=== PATIENT | male | born 1960 | race Hispanic/Latino ===

== ENCOUNTER 2017-02-20 15:48 | Inpatient (IN) | payer MEDICARE ==
[2017-02-20 16:23] LABS: Basophils % (Auto) 0.8 % (0.0-1.8); Eosinophils % (Auto) 2.9 % (0.0-4.3); Hematocrit 45.1 % (35.5-45.6); Hemoglobin 14.6 gm/dl (11.8-15.2); Mean Corpuscular HGB Conc 32 % (32-34); Mean Corpuscular Hemoglobin 28 pg (28-32); Mean Corpuscular Volume 85 fl (84-94); Platelet Count 350 K/mm3 (140-440); Red Blood Count 5.31 M/mm3 (3.65-5.03); Red Cell Distribution Width 15.6 % (13.2-15.2); White Blood Count 13.4 K/mm3 (4.5-11.0)
[2017-02-20 18:05] LABS: Anion Gap 19 mmol/L; BUN/Creatinine Ratio 13.63; Blood Urea Nitrogen 15 mg/dL (9-20); Calcium 9.4 mg/dL (8.4-10.2); Carbon Dioxide 22 mmol/L (22-30); Chloride 100.9 mmol/L (98-107); Glucose 104 mg/dL (75-100); Potassium 4.6 mmol/L (3.6-5.0); Sodium 137 mmol/L (137-145)
[2017-02-20] MEDS ORDERED: MORPHINE IV ONE (23:30)
[2017-02-20] MEDS ORDERED: ZOFRAN IV ONE (23:30)
[2017-02-20] MEDS ORDERED: NITRO-BID 2% TP ONE (23:30)
--- NOTE | 2017-02-20 23:35 | Emergency Department Report ---
HPI - General Chief Complaint: Chest Pain Time Seen by Provider: 02/20/17 22:56 - HPI HPI: Room 4 The patient is a 56-year-old male presenting with chief complaint of chest pain. The patient states she was admitted to the hospital for chest pain 3 days earlier and left AMA because nursing would not give him an aspirin. The hospitalist note states that the patient was discharged prematurely before cardiology could evaluate him and that they were attempting to get him to return to the hospital. The patient states since she's left continues to have substernal chest pain as well as low back pain shortness of breath nausea and vomiting Location: Chest Duration: [see above] Quality: Pain Severity: Moderate Modifying factors: [see above] Context: [see above] Mode of transportation: [not driving] ED Past Medical Hx - Past Medical History Hx Hypertension: Yes (2001. controlled with meds) Hx Heart Attack/AMI: Yes (2009. cardiac clearance on chart.) Hx GERD: Yes Hx Arthritis: Yes Hx Kidney Stones: Yes Hx Psychiatric Treatment: Yes (meth abuse) Hx Asthma: Yes (no inhaler use. no recent attacks) - Surgical History Past Surgical History?: Yes Hx Coronary Stent: Yes (1) Hx Open Heart Surgery: Yes (2001- vessel) Additional Surgical History: back surgery - Family History Family history: no significant - Social History Smoking Status: Current Every Day Smoker (occasional) Substance Use Type: None, Methamphetamines - Medications Home Medications: Home Medications Medication Instructions Recorded Confirmed Last Taken Type Carvedilol 6.25 mg PO DAILY 07/12/14 02/20/17 02/17/17 History 6.25 Gabapentin [Neurontin] 2 cap PO BID 02/17/17 02/20/17 02/17/17 History Lisinopril [Zestril TAB] 10 mg PO QDAY 02/17/17 02/20/17 02/17/17 History 10MG ED Review of Systems ROS: Stated complaint: CHEST PAIN Other details as noted in HPI Comment: All other systems reviewed and negative Constitutional: denies: chills, fever Eyes: denies: eye pain, eye discharge, vision change ENT: denies: ear pain, throat pain Respiratory: shortness of breath Cardiovascular: chest pain Endocrine: no symptoms reported Gastrointestinal: nausea, vomiting Genitourinary: denies: urgency, dysuria Musculoskeletal: denies: back pain, joint swelling, arthralgia Skin: denies: rash, lesions Neurological: denies: headache, weakness, paresthesias Psychiatric: denies: anxiety, depression Hematological/Lymphatic: denies: easy bleeding, easy bruising Physical Exam - Physical Exam Vital Signs: Vital Signs 02/20/17 02/20/17 15:58 21:17 Temperature 98.6 F 97.6 F Pulse Rate 93 H 102 H Respiratory 18 18 Rate Blood Pressure 111/83 149/87 O2 Sat by Pulse 99 98 Oximetry Physical Exam: GENERAL: The patient is well-developed well-nourished male lying on stretcher not appearing to be in acute distress. [] HEENT: Normocephalic. Atraumatic. Extraocular motions are intact. Patient has moist mucous membranes. NECK: Supple. Trachea midline CHEST/LUNGS: Clear to auscultation. There is no respiratory distress noted. HEART/CARDIOVASCULAR: Regular. There is no tachycardia. There is no gallop rub or murmur. ABDOMEN: Abdomen is soft, nontender. Patient has normal bowel sounds. There is no abdominal distention. SKIN: There is no rash. There is no edema. There is no diaphoresis. NEURO: The patient is awake, alert, and oriented. The patient is cooperative. The patient has normal speech MUSCULOSKELETAL: There is no evidence of acute injury. ED Course Vital Signs 02/20/17 02/20/17 15:58 21:17 Temperature 98.6 F 97.6 F Pulse Rate 93 H 102 H Respiratory 18 18 Rate Blood Pressure 111/83 149/87 O2 Sat by Pulse 99 98 Oximetry ED Medical Decision Making - Lab Data Result diagrams: 02/20/17 16:05 02/20/17 16:05 Laboratory Tests 02/20/17 02/20/17 02/20/17 16:05 16:05 19:00 WBC 13.4 H RBC 5.31 H Hgb 14.6 Hct 45.1 MCV 85 MCH 28 MCHC 32 RDW 15.6 H Plt Count 350 Lymph % (Auto) 19.3 [place] % (Auto) 8.3 H Eos % (Auto) 2.9 Baso % (Auto) 0.8 Lymph # 2.6 [place] # 1.1 H Eos # 0.4 Baso # 0.1 Seg Neutrophils % 68.7 Seg Neutrophils # 9.2 H Sodium 137 Potassium 4.6 Chloride 100.9 Carbon Dioxide 22 Anion Gap 19 BUN 15 Creatinine 1.1 Estimated GFR > 60 BUN/Creatinine Ratio 13.63 Glucose 104 H Calcium 9.4 Troponin T < 0.010 < 0.010 02/20/17 22:43 WBC RBC Hgb Hct MCV MCH MCHC RDW Plt Count Lymph % (Auto) [place] % (Auto) Eos % (Auto) Baso % (Auto) Lymph # [place] # Eos # Baso # Seg Neutrophils % Seg Neutrophils # Sodium Potassium Chloride Carbon Dioxide Anion Gap BUN Creatinine Estimated GFR BUN/Creatinine Ratio Glucose Calcium Troponin T < 0.010 - EKG Data -: EKG Interpreted by Me EKG shows normal: sinus rhythm Rate: normal - EKG Data When compared to previous EKG there are: no significant change Interpretation: unchanged when compared t (02/18/2017) 02/20/17 23:35 RBBB - Radiology Data Radiology results: image reviewed (chest x-ray) interpreted by me: Chest x-ray-no focal infiltrates, no pneumothorax - Differential Diagnosis ACS, SSS, Meth abuse Critical care attestation.: If time is entered above; I have spent that time in minutes in the direct care of this critically ill patient, excluding procedure time. ED Disposition Clinical Impression: Chest pain, Methamphetamine abuse Disposition: OP ADMITTED IP TO THIS HOSP Is pt being admited?: Yes Does the pt Need Aspirin: Yes Condition: Stable Instructions: Chest Pain (ED) Referrals: PRIMARY CARE, [Primary Care Provider] - 3-5 Days Time of Disposition: 23:36 (hospitalist paged)
[2017-02-20] MEDS ORDERED: ASPIRIN PO ONE (23:38)
[2017-02-21 01:13] LABS: Urine Drugs of Abuse Note Disclamer
[2017-02-21] MEDS ORDERED: MILK OF MAGNESIA PO PRN (01:38)
[2017-02-21] MEDS ORDERED: DULCOLAX PR PRN (01:38)
[2017-02-21] MEDS ORDERED: PROVENTIL IH PRN (01:38)
[2017-02-21] MEDS ORDERED: TYLENOL PO PRN (01:38)
[2017-02-21] MEDS ORDERED: ZOFRAN IV PRN (01:38)
--- NOTE | 2017-02-21 01:42 | History and Physical Report ---
History of Present Illness Date of examination: 02/21/17 History of present illness: This is a 56-year-old man history of hypertension, coronary artery disease, methamphetamine abuse signed out AGAINST MEDICAL ADVICE yesterday from the hospital. He was admitted for chest pain, he had a stress test which was negative. He was noted to have a 6 second pause on telemetry, he returned to the emergency room because he continues to have chest pain. Pain is in the epigastric area which she describes as a sharp pain, intermittent in nature lasting for 1 minute, intensity 3/10, no radiation, cannot identify exacerbating or relieving factors. No nausea vomiting, shortness breath, diaphoresis or palpitation Patient denies cough, abdominal pain, hematochezia, dysuria, frequency, focal weakness, dysarthria, fever chills, polydipsia polyuria, hot or cold intolerance , easy bruisability, or rash or bleeding from mucosal membrane, rhinorrhea, epistaxis, earache, tinnitus, blurry vision, eye discharge, anxiety, depression. Other review of systems negative PAST SURGICAL HISTORY: Back surgery, CABG SOCIAL HISTORY: Smoke 2 cigarettes a day, amphetamine use, no alcohol FAMILY HISTORY: Hypertension Medications and Allergies Allergies Allergy/AdvReac Type Severity Reaction Status Date / Time oxytetracycline Allergy HIVES,RASH Verified 07/13/14 11:57 [From Terramycin] oxytetracycline HCl Allergy HIVES,RASH Verified 07/13/14 11:57 [From Terramycin] Home Medications Medication Instructions Recorded Confirmed Last Taken Type Carvedilol 6.25 mg PO DAILY 07/12/14 02/20/17 02/17/17 History 6.25 Gabapentin [Neurontin] 2 cap PO BID 02/17/17 02/20/17 02/17/17 History Lisinopril [Zestril TAB] 10 mg PO QDAY 02/17/17 02/20/17 02/17/17 History 10MG Exam - Physical Exam Narrative exam: P\Gen. appearance: Patient lying in bed, no apparent distress HEENT: Normocephalic, atraumatic, pupils equally round and reactive to light, extraocular movement intact, and no sclericterus,. No JVD or thyromegaly or nodule,neck supple, no carotid bruit ,mucous membranes moist, no exudate or erythema Heart: S1, S2, regular rate and rhythm Lungs: Clear to auscultation bilaterally, breathing comfortable Abdomen: Positive bowel sounds, nontender, nondistended, no organomegaly Extremity: No edema, cyanosis, clubbing Skin: No rash, nodules, warm, dry Neuro: Oriented 3, cranial nerves II-12 intact, speech is fluent, motor and sensory intact - Constitutional Vitals: Temp Pulse Resp BP Pulse Ox 97.6 F 90 16 125/82 93 02/20/17 21:17 02/21/17 01:04 02/21/17 01:04 02/21/17 01:04 02/21/17 01:04 Results - Labs CBC & Chem 7: 02/20/17 16:05 02/20/17 16:05 Labs: Abnormal lab results 02/20/17 02/20/17 Range/Units 16:05 16:05 WBC 13.4 H (4.5-11.0) K/mm3 RBC 5.31 H (3.65-5.03) M/mm3 RDW 15.6 H (13.2-15.2) % [place] % (Auto) 8.3 H (0.0-7.3) % [place] # 1.1 H (0.0-0.8) K/mm3 Seg Neutrophils # 9.2 H (1.8-7.7) K/mm3 Glucose 104 H (75-100) mg/dL - Imaging and Cardiology EKG: image reviewed Chest x-ray: image reviewed Assessment and Plan Unstable angina 6 second pause Coronary artery disease Hypertension Substance abuse Admits medicine Continue cardiac medication, consult cardiology Start DVT prophylaxis, hold beta mary
[2017-02-21] MEDS ORDERED: APRESOLINE IV PRN (02:51)
[2017-02-21] MEDS: PERCOCET 5/325 PO PRN ×2 (04:39→18:49)
--- NOTE | 2017-02-21 09:47 | XRay Report ---
AP CHEST: HISTORY: chest pain Previous CABG changes. AP view of the chest demonstrates a normal mediastinal and cardiac contour with clear lungs and normal bony and soft tissue structures. No significant change since 02/17/17. IMPRESSION: No acute cardiopulmonary process appreciated.
[2017-02-21] MEDS: NEURONTIN PO SCH ×2 (10:26→21:12)
[2017-02-21] MEDS: ZESTRIL PO SCH (10:26)
[2017-02-21] MEDS: LOVENOX SUB-Q SCH (10:27)
--- NOTE | 2017-02-21 12:40 | Progress Note ---
Assessment and Plan Assessment and plan: Patient is a 56 yo man with a history of HTN, [place], OA, Asthma, CAD S/P CABG, Methamphetamine Substance Abuse presented to ED from [facility] admission for chest pain, unstable angina. Stress test showed prior infarct but no acute ischemia. -Recurrent Chest pains related to CAD with drug abuse: cardiology to evaluate -No Uti or sepsis on admission, urine and blood cultures negative. Patient had SIRS, poa instead -Methamphetamine substance abuse -Hyperkalemia, resolved New issue: Cardiac pulse: Hold discharge and consulted cardiology Ordered 2d Echocardiogram and labs including magnesium Cardiology went to evaluate patient, however, he had been discharged prematurely and we are currently trying to get him to return. This morning, I reviewed his [employer]; I told the nurse and charge nurse to hold discharge due to 2.6 sec cardiac pause. He was allowed to leave the hospital without my consent. I spoke with charge nurse Edith and she was trying to get him back. He came back this morning. It appears patient signed out AMA because he did not get his aspirin History Interval history: Patient seen and examined. Follow up on . Overnight uneventful. No sob, n/v or severe headaches. Imaging, old records, testing, labs, nursing notes reviewed. Hospitalist Physical - Physical exam Narrative exam: GEN: WDWN, NAD, AWAKE, ALERT, ORIENTATED 3 CVS: RRR, NORMAL S1S2 LUNGS/CHEST: CTA B, NORMAL CHEST EXPANSION B, GOOD AIR ENTRY B ABD: SOFT NTND, GBS, NO REBOUND OR GUARDING EXT/SKIN: NO SIGNIFICANT EDEMA OR RASH MSK: FROM X 4 EXTREMITIES NEURO: CN 2-12 GROSSLY INTACT, NO new FOCAL DEFICITS PSY: Anxious, poor judgment, compulsive - Constitutional Vitals: Temp Pulse Resp BP Pulse Ox 97.2 F L 76 18 127/70 97 02/21/17 08:00 02/21/17 10:26 02/21/17 08:00 02/21/17 10:26 02/21/17 08:34 Results - Labs CBC & Chem 7: 02/20/17 16:05 02/20/17 16:05 Labs: Laboratory Last Values WBC 13.4 K/mm3 (4.5-11.0) H 02/20/17 16:05 RBC 5.31 M/mm3 (3.65-5.03) H 02/20/17 16:05 Hgb 14.6 gm/dl (11.8-15.2) 02/20/17 16:05 Hct 45.1 % (35.5-45.6) 02/20/17 16:05 MCV 85 fl (84-94) 02/20/17 16:05 MCH 28 pg (28-32) 02/20/17 16:05 MCHC 32 % (32-34) 02/20/17 16:05 RDW 15.6 % (13.2-15.2) H 02/20/17 16:05 Plt Count 350 K/mm3 (140-440) 02/20/17 16:05 Lymph % (Auto) 19.3 % (13.4-35.0) 02/20/17 16:05 [place] % (Auto) 8.3 % (0.0-7.3) H 02/20/17 16:05 Eos % (Auto) 2.9 % (0.0-4.3) 02/20/17 16:05 Baso % (Auto) 0.8 % (0.0-1.8) 02/20/17 16:05 Lymph # 2.6 K/mm3 (1.2-5.4) 02/20/17 16:05 [place] # 1.1 K/mm3 (0.0-0.8) H 02/20/17 16:05 Eos # 0.4 K/mm3 (0.0-0.4) 02/20/17 16:05 Baso # 0.1 K/mm3 (0.0-0.1) 02/20/17 16:05 Seg Neutrophils % 68.7 % (40.0-70.0) 02/20/17 16:05 Seg Neutrophils # 9.2 K/mm3 (1.8-7.7) H 02/20/17 16:05 Sodium 137 mmol/L (137-145) 02/20/17 16:05 Potassium 4.6 mmol/L (3.6-5.0) 02/20/17 16:05 Chloride 100.9 mmol/L (98-107) 02/20/17 16:05 Carbon Dioxide 22 mmol/L (22-30) 02/20/17 16:05 Anion Gap 19 mmol/L 02/20/17 16:05 BUN 15 mg/dL (9-20) 02/20/17 16:05 Creatinine 1.1 mg/dL (0.8-1.5) 02/20/17 16:05 Estimated GFR > 60 ml/min 02/20/17 16:05 BUN/Creatinine Ratio 13.63 % 02/20/17 16:05 Glucose 104 mg/dL (75-100) H 02/20/17 16:05 Calcium 9.4 mg/dL (8.4-10.2) 02/20/17 16:05 Troponin T < 0.010 ng/mL (0.00-0.029) 02/20/17 22:43 Urine Opiates Screen Presumptive positive 02/21/17 00:38 Urine Methadone Screen Presumptive negative 02/21/17 00:38 Ur Barbiturates Screen Presumptive negative 02/21/17 00:38 Ur Phencyclidine Scrn Presumptive negative 02/21/17 00:38 Ur Amphetamines Screen Presumptive negative 02/21/17 00:38 U Benzodiazepines Scrn Presumptive negative 02/21/17 00:38 Urine Cocaine Screen Presumptive negative 02/21/17 00:38 U Marijuana (THC) Screen Presumptive negative 02/21/17 00:38 Drugs of Abuse Note Disclamer 02/21/17 00:38
--- NOTE | 2017-02-21 13:32 | Consultation ---
History of Present Illness Consult date: 02/21/17 Consult reason: chest pain History of present illness: 56 YO man with h/o CAD s/p CABG, Htn, and chronic amphatemine abuse. He was hospitalized at [facility] for addiction and recently transferred to [facility] due to chest pain. He underwent MPI on 02/19/17 which revealed no signfiicant ischemia. Subsuquently he was noted to have asymptomatic nocturnal sinus pause. He left the hospital yesterday against medical advice but came back to the hospital last night due to recurrent mild chest pain. He currently feels well and has minimal ongoing chest discomfort. He has been on telemetry since re-admission and no signfiicant tachy or dai arrhythmias have been noted. There is no telemetry strip currently available documenting his sinus pause prior to leaving AMA yesterday. Past History Past Medical History: CAD, hypertension, hyperlipidemia Past Surgical History: CABG Social history: other (amphetamine abuse) Family history: CAD Medications and Allergies Allergies Allergy/AdvReac Type Severity Reaction Status Date / Time oxytetracycline Allergy HIVES,RASH Verified 07/13/14 11:57 [From Terramycin] oxytetracycline HCl Allergy HIVES,RASH Verified 07/13/14 11:57 [From Terramycin] Home Medications Medication Instructions Recorded Confirmed Last Taken Type Carvedilol 6.25 mg PO DAILY 07/12/14 02/20/17 02/17/17 History 6.25 Gabapentin [Neurontin] 2 cap PO BID 02/17/17 02/20/17 02/17/17 History Lisinopril [Zestril TAB] 10 mg PO QDAY 02/17/17 02/20/17 02/17/17 History 10MG Active Meds: Active Medications Acetaminophen (Tylenol) 650 mg PO Q4H PRN PRN Reason: Pain MILD(1-3)/Fever >100.5/MALIK Albuterol (Proventil) 2.5 mg IH Q3HRT PRN PRN Reason: Shortness Of Breath Aspirin (Aspirin) 325 mg PO QDAY [facility] Bisacodyl (Dulcolax) 10 mg ME QDAY PRN PRN Reason: Constipation unrelieved by MOM Enoxaparin Sodium (Lovenox) 40 mg SUB-Q QDAY [facility] Last Admin: 02/21/17 10:27 Dose: 40 mg Gabapentin (Neurontin) 600 mg PO BID [facility] Last Admin: 02/21/17 10:26 Dose: 600 mg Hydralazine HCl (Apresoline) 5 mg IV Q6HR PRN PRN Reason: Hypertension Lisinopril (Zestril) 10 mg PO QDAY [facility] Last Admin: 02/21/17 10:26 Dose: 10 mg Magnesium Hydroxide (Milk Of Magnesia) 30 ml PO Q4H PRN PRN Reason: Constipation Ondansetron HCl (Zofran) 4 mg IV Q8H PRN PRN Reason: N/V unrelieved by Reglan Oxycodone/Acetaminophen (Percocet 5/325) 1 tab PO Q6H PRN PRN Reason: Pain, Moderate (4-6) Last Admin: 02/21/17 04:39 Dose: 1 tab Review of Systems All systems: negative (per hpi) Physical Examination Vital Signs Temp Pulse Resp BP Pulse Ox 98.6 F 93 H 18 111/83 99 02/20/17 15:58 02/20/17 15:58 02/20/17 15:58 02/20/17 15:58 02/20/17 15:58 General appearance: no acute distress HEENT: Positive: PERRL, EOMI Neck: Positive: neck supple, trachea midline Cardiac: Positive: Reg Rate and Rhythm Lungs: Positive: clear to auscultation, Normal Breath Sounds Neuro: Positive: Grossly Intact Abdomen: Positive: Soft, Active Bowel Sounds Extremities: Absent: edema Results 02/20/17 16:05 02/20/17 16:05 EKG interpretations - EKG Sinus rhythms and dysrhythmias: sinus tachycardia AV and intraventricular conduction: right bundle branch block Myocardial infarction: inferior OR (old age inde Assessment and Plan Chest pain Negative MPI on 02/19/17 CAD s/p CABG Amphetamine abuse Nocturnal sinus pause Htn Recommend: Intensify anti-anginal treatment - add Imdur. Agree with holding beta mary for now Continue to monitor on telemetry Check Echocardiogram.
[2017-02-21] MEDS: ASPIRIN PO SCH (16:20)
[2017-02-21] MEDS: IMDUR PO SCH (16:20)
[2017-02-22] MEDS: PERCOCET 5/325 PO PRN ×3 (01:52→20:10)
[2017-02-22 07:54] LABS: Basophils % (Auto) 0.6 % (0.0-1.8); Eosinophils % (Auto) 5.3 % (0.0-4.3); Hematocrit 41.9 % (35.5-45.6); Hemoglobin 13.5 gm/dl (11.8-15.2); Mean Corpuscular HGB Conc 32 % (32-34); Mean Corpuscular Hemoglobin 27 pg (28-32); Mean Corpuscular Volume 85 fl (84-94); Platelet Count 331 K/mm3 (140-440); Red Blood Count 4.95 M/mm3 (3.65-5.03); Red Cell Distribution Width 15.2 % (13.2-15.2); White Blood Count 11.6 K/mm3 (4.5-11.0)
[2017-02-22 07:57] LABS: Anion Gap 18 mmol/L; BUN/Creatinine Ratio 17.27; Blood Urea Nitrogen 19 mg/dL (9-20); Calcium 8.7 mg/dL (8.4-10.2); Carbon Dioxide 23 mmol/L (22-30); Chloride 100.3 mmol/L (98-107); Glucose 99 mg/dL (75-100); Potassium 4.2 mmol/L (3.6-5.0); Sodium 137 mmol/L (137-145)
[2017-02-22] MEDS: ASPIRIN PO SCH (10:08)
[2017-02-22] MEDS: NEURONTIN PO SCH ×2 (10:08→21:18)
[2017-02-22] MEDS: ZESTRIL PO SCH (10:08)
[2017-02-22] MEDS: IMDUR PO SCH (10:09)
[2017-02-22] MEDS: LOVENOX SUB-Q SCH (10:09)
--- NOTE | 2017-02-22 10:39 | Progress Note ---
Assessment and Plan Chest pain Negative MPI on 02/19/17 CAD s/p CABG Amphetamine abuse Nocturnal sinus pause Htn Recommend: Continue current therapy Consider psychiatry consult Agree with holding beta mary for now Check Echocardiogram. Subjective Date of service: 02/22/17 Interval history: Pt is very uncooperative this morning and refusing to answer any questions. Telemetry reviewed - no significant pauses since re-admission. Objective Vital Signs Temp Pulse Pulse Resp BP Pulse Ox 02/22/17 10:11 20 02/22/17 08:00 97.8 F 74 18 112/59 96 02/22/17 05:08 98.1 F 79 20 99/54 96 02/22/17 04:00 80 02/22/17 01:00 98.4 F 73 20 95/57 98 02/21/17 20:49 98.7 F 94 H 20 99/63 98 02/21/17 20:35 97 02/21/17 16:00 97.7 F 71 18 101/61 97 02/21/17 12:00 97.4 F L 83 18 112/62 96 02/21/17 11:18 72 - Physical Examination HEENT: Positive: PERRL, EOMI Neck: Positive: neck supple, trachea midline Cardiac: Positive: Reg Rate and Rhythm Lungs: Positive: clear to auscultation Neuro: Positive: Grossly Intact Abdomen: Positive: Soft, Active Bowel Sounds Extremities: Absent: edema - Labs and Meds CBC 02/22/17 Range/Units 07:19 WBC 11.6 H (4.5-11.0) K/mm3 RBC 4.95 (3.65-5.03) M/mm3 Hgb 13.5 (11.8-15.2) gm/dl Hct 41.9 (35.5-45.6) % Plt Count 331 (140-440) K/mm3 Lymph # 4.0 (1.2-5.4) K/mm3 [place] # 1.2 H (0.0-0.8) K/mm3 Eos # 0.6 H (0.0-0.4) K/mm3 Baso # 0.1 (0.0-0.1) K/mm3 Comprehensive Metabolic Panel 02/22/17 Range/Units 07:19 Sodium 137 (137-145) mmol/L Potassium 4.2 (3.6-5.0) mmol/L Chloride 100.3 (98-107) mmol/L Carbon Dioxide 23 (22-30) mmol/L BUN 19 (9-20) mg/dL Creatinine 1.1 (0.8-1.5) mg/dL Glucose 99 (75-100) mg/dL Calcium 8.7 (8.4-10.2) mg/dL - Imaging and Cardiology EKG: image reviewed - EKG Sinus rhythms and dysrhythmias: sinus tachycardia AV and intraventricular conduction: right bundle branch block Myocardial infarction: inferior [place] (old age inde
--- NOTE | 2017-02-22 10:45 | Progress Note ---
Assessment and Plan Assessment and plan: Patient is a 56 yo man with a history of HTN, [place], OA, Asthma, CAD S/P CABG, Methamphetamine Substance Abuse presented to ED from [facility] admission for chest pain, unstable angina. Stress test showed prior infarct but no acute ischemia. -Recurrent Chest pains related to CAD with drug abuse: cardiology to evaluate -No Uti or sepsis on admission, urine and blood cultures negative. Patient had SIRS, poa instead -Methamphetamine substance abuse -Hyperkalemia, resolved New issue: Cardiac pulse: Hold discharge and consulted cardiology Ordered 2d Echocardiogram and labs including magnesium Cardiology went to evaluate patient, however, he had been discharged prematurely and we are currently trying to get him to return. 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 He was allowed to leave the hospital without my consent. I spoke with charge nurse Edith and she was trying to get him back. He came back this morning. It appears patient signed out AMA because he did not get his aspirin ECHO then d/c tomorrow most likely History Interval history: Patient seen and examined. Follow up on cp. Overnight uneventful. No sob, n/v or severe headaches. Imaging, old records, testing, labs, nursing notes reviewed. Hospitalist Physical - Physical exam Narrative exam: GEN: WDWN, NAD, AWAKE, ALERT, ORIENTATED 3 CVS: RRR, NORMAL S1S2 LUNGS/CHEST: CTA B, NORMAL CHEST EXPANSION B, GOOD AIR ENTRY B ABD: SOFT NTND, GBS, NO REBOUND OR GUARDING EXT/SKIN: NO SIGNIFICANT EDEMA OR RASH MSK: FROM X 4 EXTREMITIES NEURO: CN 2-12 GROSSLY INTACT, NO new FOCAL DEFICITS PSY: Anxious, poor judgment, compulsive - Constitutional Vitals: Temp Pulse Resp BP Pulse Ox 97.8 F 74 20 112/59 96 02/22/17 08:00 02/22/17 08:00 02/22/17 10:11 02/22/17 08:00 02/22/17 08:00 General appearance: Present: no acute distress Results - Labs CBC & Chem 7: 02/22/17 07:19 02/22/17 07:19 Labs: Laboratory Last Values WBC 11.6 K/mm3 (4.5-11.0) H 02/22/17 07:19 RBC 4.95 M/mm3 (3.65-5.03) 02/22/17 07:19 Hgb 13.5 gm/dl (11.8-15.2) 02/22/17 07:19 Hct 41.9 % (35.5-45.6) 02/22/17 07:19 MCV 85 fl (84-94) 02/22/17 07:19 MCH 27 pg (28-32) L 02/22/17 07:19 MCHC 32 % (32-34) 02/22/17 07:19 RDW 15.2 % (13.2-15.2) 02/22/17 07:19 Plt Count 331 K/mm3 (140-440) 02/22/17 07:19 Lymph % (Auto) 34.3 % (13.4-35.0) 02/22/17 07:19 [place] % (Auto) 10.0 % (0.0-7.3) H 02/22/17 07:19 Eos % (Auto) 5.3 % (0.0-4.3) H 02/22/17 07:19 Baso % (Auto) 0.6 % (0.0-1.8) 02/22/17 07:19 Lymph # 4.0 K/mm3 (1.2-5.4) 02/22/17 07:19 [place] # 1.2 K/mm3 (0.0-0.8) H 02/22/17 07:19 Eos # 0.6 K/mm3 (0.0-0.4) H 02/22/17 07:19 Baso # 0.1 K/mm3 (0.0-0.1) 02/22/17 07:19 Seg Neutrophils % 49.8 % (40.0-70.0) 02/22/17 07:19 Seg Neutrophils # 5.8 K/mm3 (1.8-7.7) 02/22/17 07:19 Sodium 137 mmol/L (137-145) 02/22/17 07:19 Potassium 4.2 mmol/L (3.6-5.0) 02/22/17 07:19 Chloride 100.3 mmol/L (98-107) 02/22/17 07:19 Carbon Dioxide 23 mmol/L (22-30) 02/22/17 07:19 Anion Gap 18 mmol/L 02/22/17 07:19 BUN 19 mg/dL (9-20) 02/22/17 07:19 Creatinine 1.1 mg/dL (0.8-1.5) 02/22/17 07:19 Estimated GFR > 60 ml/min 02/22/17 07:19 BUN/Creatinine Ratio 17.27 % 02/22/17 07:19 Glucose 99 mg/dL (75-100) 02/22/17 07:19 Calcium 8.7 mg/dL (8.4-10.2) 02/22/17 07:19 Troponin T < 0.010 ng/mL (0.00-0.029) 02/20/17 22:43 Urine Opiates Screen Presumptive positive 02/21/17 00:38 Urine Methadone Screen Presumptive negative 02/21/17 00:38 Ur Barbiturates Screen Presumptive negative 02/21/17 00:38 Ur Phencyclidine Scrn Presumptive negative 02/21/17 00:38 Ur Amphetamines Screen Presumptive negative 02/21/17 00:38 U Benzodiazepines Scrn Presumptive negative 02/21/17 00:38 Urine Cocaine Screen Presumptive negative 02/21/17 00:38 U Marijuana (THC) Screen Presumptive negative 02/21/17 00:38 Drugs of Abuse Note Disclamer 02/21/17 00:38
[2017-02-23] MEDS: PERCOCET 5/325 PO PRN ×2 (01:42→08:53)
[2017-02-23] MEDS: LOVENOX SUB-Q SCH (09:22)
[2017-02-23] MEDS: ZESTRIL PO SCH (09:23)
[2017-02-23] MEDS: ASPIRIN PO SCH (09:23)
[2017-02-23] MEDS: NEURONTIN PO SCH (09:23)
[2017-02-23] MEDS: IMDUR PO SCH (09:24)
--- NOTE | 2017-02-23 09:33 | Admit Criteria Form ---
Admission Criteria Documentation: CARDIOLOGY GRG Clinical Indications for Admission to Inpatient Care ( Place 'X' for any and all applicable criteria): Hospital admission is needed for appropriate care of the patient because of ANY ONE of the following (1): [ ] I. Hemodynamic instability as indicated by ALL of the following (1)(2)(3) (4)(5) [ ]a) Vital signs or other findings not as expected for chronic patient condition or baseline [ ]b) Instability indicated by ANY ONE of the following: [ ]i) Hypotension [ ]ii) Symptomatic Tachycardia unresponsive to treatment ( e.g., analgesia, fluids, sedation as indicated) [ ]iii) Inadequate perfusion indicated by ANY ONE of the following: [ ] 1) Lactic acidosis (> 2 mmol/L) [ ] 2) New abnormal capillary refill (> 3 seconds) [ ] 3) Reduced urine output [ ] 4) New altered mental status [ ]iv) Orthostatic vital sign changes unresponsive to treatment (e.g., fluids) [ ]v) IV inotropic or vasopressor medication required to maintain adequate blood pressure or perfusion [ ] II. Severe heart failure as indicated by ANY ONE of the following(17)(18) [ ]a) Respiratory distress [ ]b) Hypotension [ ]c) Anasarca (refractory to outpatient therapy) [ ]d) Cardiac arrhythmias of immediate concern [ ]e) Myocardial ischemia [ ] III. Cardiac arrhythmias or findings of immediate concern indicated by ANY ONE of the following (19)(20): [ ] a) Heart rhythms that are inherently dangerous or unstable indicated by ANY ONE of the following (21)(22)(23): [ ] i) Resuscitated ventricular fibrillation or cardiac arrest [ ] ii) Ventricular escape rhythm [ ] iii) Sustained ventricular tachycardia (30 seconds or more of ventricular rhythm at greater than 100 beats per minute) [ ] iv) Nonsustained ventricular tachycardia and ANY ONE of the following: [ ] 1) Suspected cardiac ischemia as cause or consequence of ventricular tachycardia [ ] 2) In setting of acute myocarditis [ ] b) Unstable cardiac conduction defects indicated by ANY ONE of the following(23)(24)(25) [ ] i) Type II second-degree atrioventricular block [ ]ii) Third-degree atrioventricular block [ ]iii) New-onset left bundle branch block with suspected myocardial ischemia [ ]c) Any heart rhythm and ANY ONE of the following (21)(22)(26)(27) (28) [ ] i) Continuous long-term ECG monitoring needed (e.g., initiation of drug requiring monitoring for more than 24 hours) [ ] ii) Patient has automatic implanted cardioverter defibrillator that is repeatedly firing, malfunctioning, or in need of immediate adjustment of settings beyond the scope of ambulatory or observation care [ ]d) Heart rhythms of concern due to ANY ONE of the following: [ ] i) Hypotension [ ] ii) Respiratory distress [ ] iii) Association with other significant symptoms (e.g., bradycardia with syncope or ongoing dizziness, supraventricular tachycardia with chest pain (14)(15)(17) [ ] IV. Monitoring for cardiac contusion beyond the scope of observation care needed [A](30)(31)(32) [ ] V. Surgical or device complication (e.g., valve replacement complication , pacemaker dysfunction) (35)(41)(44)(45)(46) [ ] . Inpatient palliative care needed. [B](49) Also use Inpatient Palliative Care Criteria [ ] VII. Nonbacterial thrombotic (marantic) endocarditis (36)(43)(47)(48) [X] VIII. Cardiology condition, symptom, or finding for which emergency and observation care has failed or are not considered appropriate. [ ] IX. Acute valvular disease requiring inpatient as indicated by ANY ONE of the following (41) [ ]a) Acute valvular regurgitation (42) [ ]b) Noninfectious valvulitis (43) [ ]c) Obstructive valve thrombosis [ ]d) Paravalvular leak [ ]e) Other significant valvular disorder remaining after emergency or observation level of care (as appropriate) [ ]X. Pericardial disease requiring inpatient treatment as indicated by ANY ONE of the following (33)(34)(35)(36)(37) [ ]a) Suspected tamponade (38)(39)(40) [ ]b) Hemopericardium [ ]c) Other significant pericardial disorder remaining after emergency or observation level of care (as appropriate) [ ] XI. Cardiac ischemia beyond scope of emergency and observation care. [ ] XII. Hypertension requiring inpatient treatment as indicated by ANY ONE of the following (6)(7)(8) [ ]a) SBP greater than 220 mm Hg or DBP greater than 120 mmHg despite treatment [ ]b) SBP greater than 140 mm Hg or DBP greater than 100 mm Hg with evidence of acute end organ damage as indicated by ANY ONE of the following [ ] i) Altered mental status [ ] ii) Acute renal failure as indicated by new onset of ANY ONE of the following (9)(10)(11)(12)(13) [ ]1) 3-fold rise in serum creatinine from baseline [ ]2) Serum creatinine greater than 4 mg/dL ( 354 micromoles/L) with acute rise greater than 0.5 mg/dL (44.2 micromoles/L) [ ]3) Reduction of more than 75% in estimated glomerular filtration rate from baseline [ ]4) Estimated glomerular filtration rate less than 35 mL/min/1.73m2 (0.59 mL/sec/1.73m2) in child up to 18 years of age [ ]5) Cessation of urine output indicated by ALL of the following [ ]A. Adequate volume status [ ]B. Inadequate urine output as indicated by ANY ONE of the following [ ]a. Urine output less than 0.3 mL/kg/hr for 24 hours [ ]b. Anuria (urine output less than 0.1 mL/kg/hr) for 12 hours [ ] iii) Aortic dissection [ ] iv) Myocardial Ischemia [ ] v) Left ventricular heart failure [ ]vi) Retinal Hemorrhage [ ]vii) Other significant finding [ ]c) Hypertension in child requiring inpatient treatment as indicated by ALL of the following(14)(15)(16) [ ] i) Outpatient treatment not effective, not available, or not appropriate [ ]ii) SBP or DBP greater than 95th percentile for age [ ]iii) Evidence of acute end organ damage as indicated by ANY ONE of the following [ ]1) Altered mental status [ ]2) Acute renal failure as indicated by new onset of ANY ONE of the following(9)(10)(11)(12)(13) [ ]A. 3-fold rise in serum creatinine from baseline [ ]B. Serum creatinine greater than 4 mg/dL (354 micromoles/L) with acute rise greater than 0.5 mg/dL (44.2 micromoles/L) [ ]C. Reduction of more than 75% in estimated glomerular filtration rate from baseline [ ]D. Estimated glomerular filtration rate less than 35 mL/min/1.73m2 (0.59 mL/sec/1.73m2) in child up to 18 years of age [ ]E. Cessation of urine output indicated by ALL of the following [ ]a. Adequate volume status [ ]b. Inadequate urine output as indicated by ANY ONE of the following [ ]i) Urine output less than 0.3 mL/kg/hr for 24 hours [ ]ii) Anuria ( urine output less than 0.1 mL/kg/hr) for 12 hours [ ]3) Severe headache [ ]4) Visual disturbance [ ]5) Retinal hemorrhage [ ]6) Other significant finding [ ]XIII. Complications of transplanted heart indicated by ANY ONE of the following(61): [ ]a) Acute graft rejection requiring inpatient management (eg, intravenous immunosuppression)(62)(63) [ ]b) Acute graft heart failure indicated by ANY ONE of the following(64): [ ]i) Hemodynamic instability [ ]ii) Cardiac arrhythmias of immediate concern [ ]iii) Pulmonary edema that is very severe (eg, mechanical ventilation needed, imminent or likely, need for 100% oxygen to keep oxygen saturation above 90%) [ ]iv) Pulmonary edema that is persistent as indicated by ALL of the following: [ ]1) New need for oxygen therapy to keep oxygen saturation above 90% (or increased FiO2 need from baseline) [ ]2) Has not improved sufficiently with emergency department or observation care IV diuretics or other heart failure treatments[E] [ ]v) Altered mental status that is severe or persistent [ ]vi) Increased creatinine (new on laboratory test) with reduction of more than 50% in estimated glomerular filtration rate from baseline [ ]vii) Progressively (ongoing) rising creatinine (known from past laboratory test) with reduction of more than 25% in estimated glomerular filtration rate from baseline [ ]viii) Acute renal failure [ ]ix) Acute peripheral ischemia (eg, examination shows pulseless, cool, mottled, or cyanotic extremity) [ ]x) Pulmonary artery catheter monitoring needed [ ]xi) Other sign or symptom of heart failure requiring inpatient treatment (ie, too severe or not responsive to outpatient and observation care treatment) [ ]c) Infection requiring inpatient management (eg, Hemodynamic instability, need for intravenous antimicrobial treatment)(66)(67)(68)(69)(70) [ ]d) Cardiac allograft vasculopathy requiring inpatient management ( eg evidence of cardiac ischemia)(71) [ ]e) Other complication of transplanted heart (eg, stroke, severe pulmonary hypertension, severe valvular dysfunction) requiring inpatient management(72) The original [facility] [employer] content created by [facility] has been revised. The portions of the content which have been revised are identified through the use of italic text or in bold, and [facility] has neither reviewed nor approved the modified material. All other unmodified content is copyright [facility] [employer]. Please see references footnoted in the original [facility] [employer] edition 2016 Admission Criteria Met: Yes
--- NOTE | 2017-02-23 11:01 | Progress Note ---
Assessment and Plan Chest pain Negative MPI on 02/19/17 CAD s/p CABG Ischemic cardiomyopathy EF 35-40% 09/2014 Nocturnal sinus pause beta blockers discontinued no significant pauses since re-admission Htn Noncompliant with outpatient cardiac f/u Echocardiogram done today, results pending. Recommend: Medical management for coronary artery disease and ischemic cardiomyopathy. Beta blockers held due to nocturnal sinus pause on recent admission. F/U with Dr Hudson within 1 wk of discharge. Subjective Date of service: 02/23/17 Interval history: No events on telemetry overnight. Objective Vital Signs Temp Pulse Pulse Resp BP BP Pulse Ox 02/23/17 09:24 88 134/72 02/23/17 09:23 88 136/72 02/23/17 05:18 98.3 F 80 20 119/71 97 02/23/17 01:07 98.5 F 76 20 100/54 97 02/22/17 20:10 98.2 F 80 20 95/53 96 02/22/17 16:00 98.0 F 78 20 100/58 95 02/22/17 13:00 98.0 F 86 18 80/51 95 02/22/17 12:00 78 - Physical Examination General: No Apparent Distress HEENT: Positive: PERRL Neck: Positive: trachea midline Cardiac: Positive: Reg Rate and Rhythm Lungs: Positive: Decreased Breath Sounds Neuro: Positive: Grossly Intact Extremities: Absent: edema - Imaging and Cardiology EKG: image reviewed - EKG Sinus rhythms and dysrhythmias: sinus tachycardia AV and intraventricular conduction: right bundle branch block Myocardial infarction: inferior FL (old age inde
--- NOTE | 2017-02-23 12:29 | Discharge Summary ---
Providers - Providers Date of Admission: 02/21/17 01:38 Date of discharge: 02/23/17 Attending physician: LISA CRANE 02/22/17 10:43 Consult to Mental Health [CONS] Routine Reason For Exam: evaluate for depression Place consult to:: Shellie ABRAMS Notified:: Vandana العراقي Phone number called:: [phone] Was contact made?: Yes If yes, spoke with:: Demetris-mental health Time called:: 08:25 Comment:: no contact was made no one answered ext when called Primary care physician: [employer] Hospitalization Condition: Stable Hospital course: Patient is a 56 yo man with a history of HTN, GA, OA, Asthma, CAD S/P CABG, Methamphetamine and Substance Abuse presented to ED from [facility] admission for chest pain, unstable angina. Stress test showed prior infarct but no acute ischemia. He left AMA on 02/20/17 but returned 02/21/17 with chest pains. -Recurrent Chest pains related to CAD with drug abuse: cardiology to evaluate -No Uti or sepsis on admission, urine and blood cultures negative. Patient had SIRS, poa instead -Methamphetamine substance abuse -Hyperkalemia, resolved -Sinus pause at night, hold bblocker -2D Echocardiogram reviewed -Passed calcium oxalate stone last night Disposition: DISCHARGED TO HOME OR SELFCARE Time spent for discharge: 35 minutes Core Measure Documentation - Palliative Care Palliative Care/ Comfort Measures: Not Applicable - Core Measures Any of the following diagnoses?: none - VTE Discharge Requirements Deep Vein Thrombosis/Pulmonary Embolism Present on Admission: No Has pt received <5 days of overlap therapy or INR<2.0: No Anticoagulant overlap therapy prescribed at discharge: No Contraindication No Overlap Therapy order at DC: Not Indicated Exam - Physical Exam Narrative exam: GEN: WDWN, NAD, AWAKE, ALERT, ORIENTATED 3 CVS: RRR, NORMAL S1S2 LUNGS/CHEST: CTA B, NORMAL CHEST EXPANSION B, GOOD AIR ENTRY B ABD: SOFT NTND, GBS, NO REBOUND OR GUARDING EXT/SKIN: NO SIGNIFICANT EDEMA OR RASH MSK: FROM X 4 EXTREMITIES NEURO: CN 2-12 GROSSLY INTACT, NO new FOCAL DEFICITS PSY: Anxious, poor judgment, compulsive - Constitutional Vitals: Temp Pulse Resp BP Pulse Ox 98.3 F 88 20 134/72 97 02/23/17 05:18 02/23/17 09:24 02/23/17 05:18 02/23/17 09:24 02/23/17 05:18 Plan Activity: no driving until cleared by PCP (no driving until cleared by Cardiology), other (no strenous activites until cleared by cardiology) Diet: low salt Follow up with: PRIMARY CARE, [Primary Care Provider] - 3-5 Days
[2017-02-23 14:07] VITALS: BP 121/67
--- NOTE | 2017-02-23 14:20 | Consultation ---
History of Present Illness - Reason for Consult Consult date: 02/23/17 Reason for consult: Mental Health Evaluation Requesting physician: LISA CRANE - Chief Complaint Chief complaint: "I feel good" - History of Present Psychiatric Illness Patient is a 56 yo man with a history of HTN, [place], OA, Asthma, CAD S/P CABG, Methamphetamine Substance Abuse presented to ED from [facility] admission for chest pain, unstable angina. Today patient is calm and cooperative during assessment. Patient is being discharged home today. He stated that he was admitted to [facility] (voluntarily) and living at their lodge (outpatient setting). He came to [facility] for chest pain. He stated that he was concerned about his living arrangement once he is discharged home. He denies SI/HI's, AVH's, depression, sleep disturbance or a poor appetite. He denies recreational drug use or consumption of alcohol (etoh). Patient stated that his current residence isn't a good place to reside and would like assistance with placement. He stated that he takes Celexa for depression and Gabapentin/Percocet for lower back pain. Medications and Allergies Allergies Allergy/AdvReac Type Severity Reaction Status Date / Time oxytetracycline Allergy HIVES,RASH Verified 07/13/14 11:57 [From Terramycin] oxytetracycline HCl Allergy HIVES,RASH Verified 07/13/14 11:57 [From Terramycin] Home Medications Medication Instructions Recorded Confirmed Last Taken Type Gabapentin [Neurontin] 2 cap PO BID 02/17/17 02/20/17 02/17/17 History Lisinopril [Zestril TAB] 10 mg PO QDAY 02/17/17 02/20/17 02/17/17 History 10MG Aspirin [Aspirin TAB] 325 mg PO QDAY #30 tablet 02/23/17 Unknown Rx Gabapentin [Neurontin] 600 mg PO BID #60 capsule 02/23/17 Unknown Rx ISOSORBIDE MONOnitrate [Imdur ER] 60 mg PO QDAY #30 tablet 02/23/17 Unknown Rx oxyCODONE /ACETAMINOPHEN [Percocet 1 tab PO Q6H PRN #30 tablet 02/23/17 Unknown Rx 5/325 mg] Active Meds: Active Medications Acetaminophen (Tylenol) 650 mg PO Q4H PRN PRN Reason: Pain MILD(1-3)/Fever >100.5/MALIK Albuterol (Proventil) 2.5 mg IH Q3HRT PRN PRN Reason: Shortness Of Breath Aspirin (Aspirin) 325 mg PO QDAY [facility] Last Admin: 02/23/17 09:23 Dose: 325 mg Bisacodyl (Dulcolax) 10 mg [place] QDAY PRN PRN Reason: Constipation unrelieved by MOM Enoxaparin Sodium (Lovenox) 40 mg SUB-Q QDAY [facility] Last Admin: 02/23/17 09:22 Dose: 40 mg Gabapentin (Neurontin) 600 mg PO BID [facility] Last Admin: 02/23/17 09:23 Dose: 600 mg Hydralazine HCl (Apresoline) 5 mg IV Q6HR PRN PRN Reason: Hypertension Isosorbide Mononitrate (Imdur) 60 mg PO QDAY [facility] Last Admin: 02/23/17 09:24 Dose: 60 mg Lisinopril (Zestril) 10 mg PO QDAY [facility] Last Admin: 02/23/17 09:23 Dose: 10 mg Magnesium Hydroxide (Milk Of Magnesia) 30 ml PO Q4H PRN PRN Reason: Constipation Ondansetron HCl (Zofran) 4 mg IV Q8H PRN PRN Reason: N/V unrelieved by Reglan Last Admin: 02/22/17 01:52 Dose: 4 mg Oxycodone/Acetaminophen (Percocet 5/325) 1 tab PO Q6H PRN PRN Reason: Pain, Moderate (4-6) Last Admin: 02/23/17 08:53 Dose: 1 tab Past psychiatric history - Past Medical History Past Medical History: other (Angina) Past Surgical History: Other (CABG) - past Psychiatric treatment and history Psych: Depression psychiatric treatment history: [facility] recently voluntary admission. Denies fam psy hx. - Social History Social history: Lives alone (HS graduate) Mental Status Exam - Vital signs Last Vital Signs Temp 97.4 F L 02/23/17 09:20 Pulse 72 02/23/17 10:00 Resp 18 02/23/17 09:20 BP 134/72 02/23/17 09:24 Pulse Ox 97 02/23/17 09:20 - Exam Narrative exam: ROS (-) depression, (-) psychosis MSE: Appearance: calm, cooperative Behavior: good eye contact Speech: regular rate and tone Mood: "not depressed" Affect: mood congruent Thought Process: linear Thought Content: denies SI/HI's and AVH's Motor Activity: ambulatory Cognition: A/O x3 Insight: fair Judgment: fair Results Result Diagrams: 02/22/17 07:19 02/22/17 07:19 All other labs normal. Assessment and Plan Assessment and plan: Impression: Hx of depression. Patient is a 56 yo man with a history of HTN, VT, OA, Asthma, CAD S/P CABG, Methamphetamine Substance Abuse presented to ED from [facility] admission for chest pain, unstable angina. Today patient is calm and cooperative during assessment. Patient is being discharged home today. Positive for opiates. DD: R/O Bipolar Recommendation/Plan: Patient is pending discharge. Outpatient psy services information given to him for his local area. Case management involved, patient need placement. If patient is still here tomorrow, we will follow up with him.
== END 2017-02-23 15:25 | DRG 303 ==
LOC: ED 15:48 → 4A 02-21 01:38
PROVIDERS: ADMIT Internal Medicine; ATTEND Internal Medicine
DX: I25.110 Atherosclerotic heart disease of native coronary artery with unstable angina pectoris (principal); R65.10 Systemic inflammatory response syndrome (SIRS) of non-infectious origin without acute organ dysfunction; F15.10 Other stimulant abuse, uncomplicated; E87.5 Hyperkalemia; I10 Essential (primary) hypertension; M19.90 Unspecified osteoarthritis, unspecified site; K21.9 Gastro-esophageal reflux disease without esophagitis; F17.210 Nicotine dependence, cigarettes, uncomplicated; F32.9 Major depressive disorder, single episode, unspecified; I25.5 Ischemic cardiomyopathy; I25.2 Old myocardial infarction; Z95.1 Presence of aortocoronary bypass graft; Z87.442 Personal history of urinary calculi; Z95.5 Presence of coronary angioplasty implant and graft; Z82.49 Family history of ischemic heart disease and other diseases of the circulatory system; Z91.19 Patient's noncompliance with other medical treatment and regimen
CPT/HCPCS: 36415; 71010; 80048; 80307; 84484; 85025; 93005; 93010; 93306; 96374; 96375; J1650; J2270; J2405

== ENCOUNTER 2018-03-07 03:39 | Inpatient (IN) | payer MEDICARE ==
[2018-03-07] MEDS ORDERED: ASPIRIN PO ONE (03:52)
[2018-03-07 04:19] LABS: Hematocrit 38.4 % (35.5-45.6); Lymphocytes % (Auto) 26.9 % (13.4-35.0); Mean Corpuscular HGB Conc 34 % (32-34); Mean Corpuscular Hemoglobin 29 pg (28-32); Mean Corpuscular Volume 86 fl (84-94); Platelet Count 230 K/mm3 (140-440); Red Blood Count 4.49 M/mm3 (3.65-5.03); Red Cell Distribution Width 16.7 % (13.2-15.2)
[2018-03-07 04:20] LABS: Basophils # (Auto) 0.1 K/mm3 (0.0-0.1); Basophils % (Auto) 0.8 % (0.0-1.8); Eosinophils # (Auto) 0.4 K/mm3 (0.0-0.4); Lymphocytes # (Auto) 2.7 K/mm3 (1.2-5.4); Monocytes # (Auto) 0.8 K/mm3 (0.0-0.8)
[2018-03-07 04:34] LABS: Bacteria,Urine 1+ /HPF (Negative); Bilirubin,Urine NEG (Negative); Blood,Urine MOD (Negative); Color,Urine Yellow (Yellow); Protein,Urine <15 mg/dL mg/dL (Negative); Urobilinogen,Urine < 2.0 mg/dL (<2.0)
--- NOTE | 2018-03-07 04:38 | XRay Report ---
FINAL REPORT PROCEDURE: XR CHEST ROUTINE 2V TECHNIQUE: Chest radiograph anteroposterior view. CPT 23784 HISTORY: SOB COMPARISON: No prior studies are available for comparison. FINDINGS: Heart: Normal. Mediastinum/Vessels: Multiple sternal wires are present. Lungs/Pleural space: Normal. Bony thorax: No acute osseous abnormality. Life support devices: None. IMPRESSION: There is no evidence of an acute cardiopulmonary process.
[2018-03-07 04:50] LABS: BUN/Creatinine Ratio 19; Blood Urea Nitrogen 15 mg/dL (9-20); Calcium 8.4 mg/dL (8.4-10.2); Hemolysis Index 20
[2018-03-07] MEDS ORDERED: NITROSTAT SL ONE (09:36)
[2018-03-07] MEDS ORDERED: KEFLEX PO ONE (09:36)
[2018-03-07] MEDS ORDERED: TYLENOL PO ONE (09:36)
[2018-03-07] MEDS ORDERED: ASPIRIN ONE (09:58)
[2018-03-07] MEDS ORDERED: DELTASONE PO ONE (10:32)
[2018-03-07] MEDS ORDERED: SUBLIMAZE IV ONE (10:33)
[2018-03-07] MEDS ORDERED: DUONEB *Not for PRN Use IH ONE (10:33)
--- NOTE | 2018-03-07 10:34 | Emergency Department Report ---
HPI - General Chief Complaint: Chest Pain Time Seen by Provider: 03/07/18 09:36 ED Past Medical Hx - Past Medical History Previous Medical History?: Yes Hx Hypertension: Yes Hx Heart Attack/AMI: Yes (2009. cardiac clearance on chart.) Hx GERD: Yes Hx Arthritis: Yes Hx Kidney Stones: Yes Hx Psychiatric Treatment: Yes (meth abuse) Hx Asthma: Yes (no inhaler use. no recent attacks) Hx COPD: Yes - Surgical History Past Surgical History?: Yes Hx Coronary Stent: Yes (1) Hx Open Heart Surgery: Yes (2001- vessel) Additional Surgical History: back surgery - Social History Smoking Status: Current Every Day Smoker Substance Use Type: None - Medications Home Medications: Home Medications Medication Instructions Recorded Confirmed Last Taken Type Gabapentin [Neurontin] 2 cap PO BID 02/17/17 02/20/17 02/17/17 History Lisinopril [Zestril TAB] 10 mg PO QDAY 02/17/17 02/20/17 02/17/17 History 10MG Aspirin [Aspirin TAB] 325 mg PO QDAY #30 tablet 02/23/17 Unknown Rx Gabapentin [Neurontin] 600 mg PO BID #60 capsule 02/23/17 Unknown Rx ISOSORBIDE MONOnitrate [Imdur ER] 60 mg PO QDAY #30 tablet 02/23/17 Unknown Rx oxyCODONE /ACETAMINOPHEN [Percocet 1 tab PO Q6H PRN #30 tablet 02/23/17 Unknown Rx 5/325 mg] ED Review of Systems ROS: Stated complaint: CHEST PAIN Other details as noted in HPI Physical Exam - Physical Exam Vital Signs: Vital Signs 03/07/18 03/07/18 03:37 10:11 Temperature 98.0 F Pulse Rate 93 H Respiratory 18 16 Rate Blood Pressure 158/72 O2 Sat by Pulse 97 Oximetry ED Course Vital Signs 03/07/18 03/07/18 03:37 10:11 Temperature 98.0 F Pulse Rate 93 H Respiratory 18 16 Rate Blood Pressure 158/72 O2 Sat by Pulse 97 Oximetry ED Medical Decision Making - Lab Data Result diagrams: 03/07/18 03:55 03/07/18 03:55 Critical care attestation.: If time is entered above; I have spent that time in minutes in the direct care of this critically ill patient, excluding procedure time. ED Disposition Clinical Impression: Acute chest pain, Acute lower UTI (urinary tract infection), Dehydration Dyspnea Qualifiers: Dyspnea type: dyspnea on exertion Qualified Code(s): R06.09 - Other forms of dyspnea Disposition: DC-09 OP ADMIT IP TO THIS HOSP Is pt being admited?: Yes Does the pt Need Aspirin: Yes Condition: Stable Instructions: Chest Pain (ED) Referrals: PRIMARY CARE, [Primary Care Provider] - 3-5 Days Time of Disposition: 10:34
--- NOTE | 2018-03-07 10:40 | Emergency Department Report ---
HPI - General Chief Complaint: Chest Pain Time Seen by Provider: 03/07/18 09:36 - HPI HPI: HPI The patient is a 57-year-old male who presents for evaluation of chest pain. The patient reports chest pain since yesterday morning, constant since onset, crushing and pressure like in quality, midsternal, 9/10 severity, and associated with dyspnea on exertion. He states that his symptoms feel consistent with his previous episode of heart attack. The patient denies trauma to the chest, fever, syncope, hemoptysis, unilateral leg swelling, oral contraceptive use, recent immobilization, history of DVT or PE, hx of recent cancer. ED Past Medical Hx - Past Medical History Previous Medical History?: Yes Hx Hypertension: Yes Hx Heart Attack/AMI: Yes (2009. cardiac clearance on chart.) Hx GERD: Yes Hx Arthritis: Yes Hx Kidney Stones: Yes Hx Psychiatric Treatment: Yes (meth abuse) Hx Asthma: Yes (no inhaler use. no recent attacks) Hx COPD: Yes - Surgical History Past Surgical History?: Yes Hx Coronary Stent: Yes (1) Hx Open Heart Surgery: Yes (2001- vessel) Additional Surgical History: back surgery - Social History Smoking Status: Current Every Day Smoker Substance Use Type: None - Medications Home Medications: Home Medications Medication Instructions Recorded Confirmed Last Taken Type Gabapentin [Neurontin] 2 cap PO BID 02/17/17 02/20/17 02/17/17 History Lisinopril [Zestril TAB] 10 mg PO QDAY 02/17/17 02/20/17 02/17/17 History 10MG Aspirin [Aspirin TAB] 325 mg PO QDAY #30 tablet 02/23/17 Unknown Rx Gabapentin [Neurontin] 600 mg PO BID #60 capsule 02/23/17 Unknown Rx ISOSORBIDE MONOnitrate [Imdur ER] 60 mg PO QDAY #30 tablet 02/23/17 Unknown Rx oxyCODONE /ACETAMINOPHEN [Percocet 1 tab PO Q6H PRN #30 tablet 02/23/17 Unknown Rx 5/325 mg] ED Review of Systems ROS: Stated complaint: CHEST PAIN Other details as noted in HPI Constitutional: denies: fever ENT: denies: throat or neck pain Respiratory: denies: cough, shortness of breath Cardiovascular: reports chest pain Endocrine: denies unexplained weight loss or gain Gastrointestinal: denies: abdominal pain, nausea Genitourinary: denies: dysuria Musculoskeletal: denies: leg swelling Skin: denies: rash Neurological: denies: headache Hematological/Lymphatic: denies: easy bleeding or easy bruising Psych: denies sadness or hopelessness Comment: All other systems reviewed and negative Physical Exam - Physical Exam Vital Signs: Vital Signs 03/07/18 03/07/18 03:37 10:11 Temperature 98.0 F Pulse Rate 93 H Respiratory 18 16 Rate Blood Pressure 158/72 O2 Sat by Pulse 97 Oximetry Physical Exam: General: well-nourished, well-developed, no acute distress Head: Normocephalic, atraumatic Eyes: normal sclera ENT: Mucous membranes are pale and dry Neck: No neck stiffness, no cervical adenopathy Respiratory: Mildly diminished breath sounds and wheezing presents apical lung montes bilaterally, no costal retractions, no respiratory distress Cardio: S1 and S2 present, no murmurs, rubs, gallops, capillary refill is delayed Abdomen: Normoactive bowel sounds, soft abdomen, no rigidity, no guarding or rebound tenderness Chest WALL/Back: No tenderness to palpation of the chest wall, no CVA tenderness with percussion Musc: No pitting edema Skin: No rash Neuro: no facial drooping, normal speech Psych: Normal affect ED Course Vital Signs 03/07/18 03/07/18 03:37 10:11 Temperature 98.0 F Pulse Rate 93 H Respiratory 18 16 Rate Blood Pressure 158/72 O2 Sat by Pulse 97 Oximetry ED Medical Decision Making - Lab Data Result diagrams: 03/07/18 03:55 03/07/18 03:55 - Medical Decision Making The patient was seen and examined by myself. The patient is placed on a buying agent and continuous pulse ox. On initial evaluation, the patient was found to be in no distress. EKG was negative for findings suggestive of acute cardiac infarct. The patient is given an aspirin and pain medicine. Labs and imaging are obtained. Chest x-ray is negative for pneumothorax, focal consolidation, pulmonary vascular congestion, pleural effusion, or other obvious acute cardiopulmonary disease process. Lab results revealed elevated urine WBC with positive leukocyte esterase and bacteria, otherwise labs were non-revealing including negative troponin, WBC, hemoglobin, hematocrit, electrolytes, renal function. The patient is given Keflex for treatment of urinary tract infection. The patient was reevaluated and reported that his chest pain improved but persisted. As the patient has chest pain and risk factors for development of acute coronary event, the patient will be admitted for close cardiopulmonary monitoring, serial troponins, and evaluation by cardiology. The physician on- call was contacted. They presented to the emergency department and evaluated the patient. They agreed to admit the patient. The ED admit order was placed. The patient was admitted in guarded condition. Critical care attestation.: If time is entered above; I have spent that time in minutes in the direct care of this critically ill patient, excluding procedure time. ED Disposition Clinical Impression: Acute lower UTI (urinary tract infection), Acute chest pain, Dehydration, mild , Acute exacerbation of chronic obstructive pulmonary disease (COPD) Dyspnea Qualifiers: Dyspnea type: dyspnea on exertion Qualified Code(s): R06.09 - Other forms of dyspnea Disposition: OP ADMIT IP TO THIS HOSP Is pt being admited?: Yes Does the pt Need Aspirin: Yes Condition: Fair Instructions: Chest Pain (ED), Chronic Obstructive Pulmonary Disease (ED) Referrals: PRIMARY CARE, [Primary Care Provider] - 3-5 Days Time of Disposition: 10:38
--- NOTE | 2018-03-07 11:10 | History and Physical Report ---
History of Present Illness Date of admission: 03/07/18 10:44 Chief complaint: I have pain in my chest History of present illness: 57m who pw cp. PAST medical history of CAD status post CABG many years ago. The patient states that he has constant chest pain that is substernal, 4 out of 10, nonradiating. He's also complaining of discomfort in his left flank which is associated with stents that he got placed recently. He has not been in to follow up with urologist to have the stents removed, he is also complaining that it causes dysuria upon movements. He plans to follow back up with his urologist in [facility] to have it removed shortly after discharge. He denies shortness of breath, denies orthopnea, denies palpitations, the patient denies pedal edema. He also admits that he ran out of aspirin and has not taken it in over 4 days. He denies recent meth abuse of cocaine abuse Past medical hx; htn, cad, meth abuse, nephrolithiasis that is post left ureteral stents and she is due for removal PAST SURGICAL HISTORY: Back surgery, CABG SOCIAL HISTORY: Smoke 2 cigarettes a day, amphetamine use, no alcohol FAMILY HISTORY: Hypertension Medications and Allergies Allergies Allergy/AdvReac Type Severity Reaction Status Date / Time oxytetracycline Allergy HIVES,RASH Verified 07/13/14 11:57 [From Terramycin] oxytetracycline HCl Allergy HIVES,RASH Verified 07/13/14 11:57 [From Terramycin] Home Medications Medication Instructions Recorded Confirmed Last Taken Type Gabapentin [Neurontin] 2 cap PO BID 02/17/17 02/20/17 02/17/17 History Lisinopril [Zestril TAB] 10 mg PO QDAY 02/17/17 02/20/17 02/17/17 History 10MG Aspirin [Aspirin TAB] 325 mg PO QDAY #30 tablet 02/23/17 Unknown Rx Gabapentin [Neurontin] 600 mg PO BID #60 capsule 02/23/17 Unknown Rx ISOSORBIDE MONOnitrate [Imdur ER] 60 mg PO QDAY #30 tablet 02/23/17 Unknown Rx oxyCODONE /ACETAMINOPHEN [Percocet 1 tab PO Q6H PRN #30 tablet 02/23/17 Unknown Rx 5/325 mg] Review of Systems All systems: negative (10 points review of systems otherwise negative except that stated in HPI.) Exam - Constitutional Vitals: Temp Pulse Resp BP Pulse Ox 98.0 F 93 H 16 158/72 97 03/07/18 03:37 03/07/18 03:37 03/07/18 10:11 03/07/18 03:37 03/07/18 03:37 General appearance: Present: no acute distress, well-nourished - EENT Eyes: Present: PERRL ENT: hearing intact, clear oral mucosa - Neck Neck: Present: supple, normal ROM - Respiratory Respiratory effort: normal Respiratory: bilateral: CTA - Cardiovascular Heart Sounds: Present: S1 & S2. Absent: rub, click - Extremities Extremities: pulses symmetrical, No edema Peripheral Pulses: within normal limits - Abdominal General gastrointestinal: Present: soft, non-tender, non-distended, normal bowel sounds Male genitourinary: Present: normal - Integumentary Integumentary: Present: clear, warm, dry - Musculoskeletal Musculoskeletal: gait normal, strength equal bilaterally - Psychiatric Psychiatric: appropriate mood/affect, intact judgment & insight - Neurologic Neurologic: CNII-XII intact, moves all extremities Results - Labs CBC & Chem 7: 03/07/18 03:55 03/07/18 03:55 Labs: Laboratory Last Values WBC 9.9 K/mm3 (4.5-11.0) 03/07/18 03:55 RBC 4.49 M/mm3 (3.65-5.03) 03/07/18 03:55 Hgb 13.0 gm/dl (11.8-15.2) 03/07/18 03:55 Hct 38.4 % (35.5-45.6) 03/07/18 03:55 MCV 86 fl (84-94) 03/07/18 03:55 MCH 29 pg (28-32) 03/07/18 03:55 MCHC 34 % (32-34) 03/07/18 03:55 RDW 16.7 % (13.2-15.2) H 03/07/18 03:55 Plt Count 230 K/mm3 (140-440) 03/07/18 03:55 Lymph % (Auto) 26.9 % (13.4-35.0) 03/07/18 03:55 [place] % (Auto) 8.0 % (0.0-7.3) H 03/07/18 03:55 Eos % (Auto) 4.0 % (0.0-4.3) 03/07/18 03:55 Baso % (Auto) 0.8 % (0.0-1.8) 03/07/18 03:55 Lymph # 2.7 K/mm3 (1.2-5.4) 03/07/18 03:55 [place] # 0.8 K/mm3 (0.0-0.8) 03/07/18 03:55 Eos # 0.4 K/mm3 (0.0-0.4) 03/07/18 03:55 Baso # 0.1 K/mm3 (0.0-0.1) 03/07/18 03:55 Seg Neutrophils % 60.3 % (40.0-70.0) 03/07/18 03:55 Seg Neutrophils # 5.9 K/mm3 (1.8-7.7) 03/07/18 03:55 Sodium 140 mmol/L (137-145) 03/07/18 03:55 Potassium 3.8 mmol/L (3.6-5.0) 03/07/18 03:55 Chloride 102.8 mmol/L (98-107) 03/07/18 03:55 Carbon Dioxide 22 mmol/L (22-30) 03/07/18 03:55 Anion Gap 19 mmol/L 03/07/18 03:55 BUN 15 mg/dL (9-20) 03/07/18 03:55 Creatinine 0.8 mg/dL (0.8-1.5) 03/07/18 03:55 Estimated GFR > 60 ml/min 03/07/18 03:55 BUN/Creatinine Ratio 19 % 03/07/18 03:55 Glucose 166 mg/dL (75-100) H 03/07/18 03:55 Calcium 8.4 mg/dL (8.4-10.2) 03/07/18 03:55 Troponin T < 0.010 ng/mL (0.00-0.029) 03/07/18 10:16 Urine Color Yellow (Yellow) 03/07/18 03:58 Urine Turbidity Clear (Clear) 03/07/18 03:58 Urine pH 7.0 (5.0-7.0) 03/07/18 03:58 Ur Specific [place] 1.004 (1.003-1.030) 03/07/18 03:58 Urine Protein <15 mg/dl mg/dL (Negative) 03/07/18 03:58 Urine Glucose (UA) Neg mg/dL (Negative) 03/07/18 03:58 Urine Ketones Neg mg/dL (Negative) 03/07/18 03:58 Urine Blood Mod (Negative) 03/07/18 03:58 Urine Nitrite Neg (Negative) 03/07/18 03:58 Urine Bilirubin Neg (Negative) 03/07/18 03:58 Urine Urobilinogen < 2.0 mg/dL (<2.0) 03/07/18 03:58 Ur Leukocyte Esterase Lg (Negative) 03/07/18 03:58 Urine WBC (Auto) 135.0 /HPF (0.0-6.0) H 03/07/18 03:58 Urine RBC (Auto) 31.0 /HPF (0.0-6.0) 03/07/18 03:58 Urine Bacteria (Auto) 1+ /HPF (Negative) 03/07/18 03:58 Urine Yeast (Budding) 1+ /HPF 03/07/18 03:58 Assessment and Plan Assessment and plan: cxr; image reviewed; no acute findings 57M with pmh of htn, meth abuse and cad who pw chest pain chest pain, known hx of CAD -trop neg x3 consult [facility] -not on beta mary due to nocturnal sinus pause in 2017 Hx of meth abuse obtain UDS htn continue home meds UTI urine cx and abx
[2018-03-07] MEDS ORDERED: DELTASONE ONE (12:51)
[2018-03-07] MEDS ORDERED: SUBLIMAZE ONE (12:52)
[2018-03-07] MEDS: NEURONTIN PO SCH ×2 (13:04→22:02)
[2018-03-07 14:13] LABS: Amphetamine Screen,Urine PRESUMPTIVE NEGATIVE; Benzodiazepines Screen,Urine PRESUMPTIVE NEGATIVE; Cannabinoid Screen,Urine PRESUMPTIVE NEGATIVE; Cocaine Screen,Urine PRESUMPTIVE NEGATIVE; Methadone Screen,Urine PRESUMPTIVE NEGATIVE; Opiate Screen,Urine PRESUMPTIVE NEGATIVE
[2018-03-07] MEDS: ZESTRIL PO SCH (14:44)
[2018-03-07] MEDS: IMDUR PO SCH (14:50)
[2018-03-07] MEDS: COREG PO SCH ×2 (16:26→22:02)
[2018-03-07] MEDS: PERCOCET 5/325 PO PRN ×2 (16:53→23:19)
[2018-03-07] MEDS: HABITROL TD SCH (23:19)
[2018-03-08] MEDS: PERCOCET 5/325 PO PRN ×3 (08:41→21:10)
[2018-03-08] MEDS: ZESTRIL PO SCH (09:54)
[2018-03-08] MEDS: IMDUR PO SCH (09:54)
[2018-03-08] MEDS: ASPIRIN PO SCH (09:54)
[2018-03-08] MEDS: COREG PO SCH ×2 (09:55→21:10)
[2018-03-08] MEDS: NEURONTIN PO SCH ×2 (09:55→21:10)
--- NOTE | 2018-03-08 11:10 | Progress Note ---
Assessment and Plan Chest pain [facility] 06/2017: Patent BUSTILLOS to LAD. Small vessel disease of the RCA recommended for medical therapy. Ejection fraction 45-50. Suicidal ideations, transferred from [place] Resolving Ischemic Cardiomyopathy EF now improved to 45-50% on [facility] 06/2017 Hx of CAD with CABG Hypertension Subjective Date of service: 03/08/18 Interval history: Patient denies chest pain and shortness of breath. Objective Vital Signs Temp Pulse Resp BP BP Pulse Ox 03/08/18 09:54 139/72 03/08/18 09:24 78 03/08/18 07:54 97.3 F L 78 16 126/65 97 03/08/18 03:47 98.0 F 86 20 117/63 96 03/08/18 03:38 98.0 F 20 117/63 03/07/18 23:36 98.1 F 96 H 20 106/57 96 03/07/18 22:32 126/87 03/07/18 22:02 97 H 115/62 03/07/18 19:58 98.0 F 97 H 20 115/62 97 03/07/18 16:30 76 21 134/59 97 03/07/18 16:26 126/74 03/07/18 16:00 72 22 134/59 03/07/18 15:00 65 27 H 126/74 97 03/07/18 14:00 75 18 126/74 99 03/07/18 13:00 76 12 129/86 96 03/07/18 12:00 78 16 124/79 99 - Physical Examination General: No Apparent Distress HEENT: Positive: PERRL Cardiac: Positive: Reg Rate and Rhythm Lungs: Positive: Decreased Breath Sounds Neuro: Positive: Grossly Intact Extremities: Absent: edema
[2018-03-08] MEDS: HABITROL TD SCH (13:44)
[2018-03-08] MEDS ORDERED: PROVENTIL IH ONE (14:12)
--- NOTE | 2018-03-08 14:25 | Consultation ---
History of Present Illness Consult date: 03/08/18 Consult reason: chest pain History of present illness: 57-year-old man with a history of coronary artery disease who states that he underwent five-vessel coronary artery bypass in 2001. The report of the bypass surgery is not available. He underwent a cardiac catheterization 6 months ago at [facility], described with a severe ostial left main stenosis. Reported to have a patent left internal mammary artery graft to the LAD. However, there is no description of the bypass anatomy to the circumflex system. Was described as a dominant circumflex, with the right coronary system being small and nondominant. Left ventricular systolic ejection fraction was 45 -50%. The patient is currently admitted to [facility], with suicide ideation. He has a long history of psychiatric illness and substance addiction. While in [place], he complained of some chest pain, prompting his transfer to the hospital and eventual admission. At this time, the patient is on the medical floor, looks and feels well, no chest pain and no shortness of breath. Recommendations: We will obtain the coronary angiograms from 6 months ago, to ascertain patency of the bypass grafts to the circumflex system. Otherwise, the patient will be placed on optimal medical therapy for his coronary disease including oral nitrates, aspirin, beta blockers and statin. Recommend aggressive risk factor modification. Conservative cardiac management. Medications and Allergies Allergies Allergy/AdvReac Type Severity Reaction Status Date / Time oxytetracycline Allergy HIVES,RASH Verified 07/13/14 11:57 [From Terramycin] oxytetracycline HCl Allergy HIVES,RASH Verified 07/13/14 11:57 [From Terramycin] Home Medications Medication Instructions Recorded Confirmed Last Taken Type Gabapentin [Neurontin] 2 cap PO BID 02/17/17 02/20/17 02/17/17 History Lisinopril [Zestril TAB] 10 mg PO QDAY 02/17/17 02/20/17 02/17/17 History 10MG Aspirin [Aspirin TAB] 325 mg PO QDAY #30 tablet 02/23/17 Unknown Rx Gabapentin [Neurontin] 600 mg PO BID #60 capsule 02/23/17 Unknown Rx ISOSORBIDE MONOnitrate [Imdur ER] 60 mg PO QDAY #30 tablet 02/23/17 Unknown Rx oxyCODONE /ACETAMINOPHEN [Percocet 1 tab PO Q6H PRN #30 tablet 02/23/17 Unknown Rx 5/325 mg] Active Meds: Active Medications Aspirin (Aspirin) 325 mg PO QDAY [facility] Last Admin: 03/08/18 09:54 Dose: 325 mg Carvedilol (Coreg) 6.25 mg PO BID [facility] Last Admin: 03/08/18 09:55 Dose: 6.25 mg Gabapentin (Neurontin) 600 mg PO BID [facility] Last Admin: 03/08/18 09:55 Dose: 600 mg Isosorbide Mononitrate (Imdur) 60 mg PO QDAY [facility] Last Admin: 03/08/18 09:54 Dose: 60 mg Lisinopril (Zestril) 10 mg PO QDAY [facility] Last Admin: 03/08/18 09:54 Dose: 10 mg Nicotine (Habitrol) 7 mg TD QDAY [facility] Last Admin: 03/08/18 13:44 Dose: 7 mg Oxycodone/Acetaminophen (Percocet 5/325) 1 tab PO Q6H PRN PRN Reason: Pain, Moderate (4-6) Last Admin: 03/08/18 08:41 Dose: 1 tab Physical Examination Vital Signs Temp Pulse Resp BP Pulse Ox 98.0 F 93 H 18 158/72 97 03/07/18 03:37 03/07/18 03:37 03/07/18 03:37 03/07/18 03:37 03/07/18 03:37 General appearance: no acute distress HEENT: Positive: PERRL Neck: Positive: trachea midline Cardiac: Positive: Reg Rate and Rhythm Lungs: Positive: Decreased Breath Sounds Neuro: Positive: Grossly Intact Results 03/07/18 03:55 03/07/18 03:55 Assessment and Plan Chest pain [facility] 06/2017: Patent BUSTILLOS to LAD. Small vessel disease of the RCA recommended for medical therapy. Ejection fraction 45-50. Suicidal ideation, transferred from [place] Resolving Ischemic Cardiomyopathy EF now improved to 45-50% on [facility] 06/2017 Hx of CAD with CABG Hypertension
--- NOTE | 2018-03-08 15:02 | Progress Note ---
Assessment and Plan Assessment and plan: cxr; image reviewed; no acute findings 57M with pmh of htn, meth abuse and cad who pw chest pain chest pain, known hx of CAD -trop neg x3 Case discussed with [facility]. Patient planned for medical management, we' ll obtain his cath report from 6 months ago. -He was counseled about adherence with aspirin Hx of meth abuse obtain UDS htn continue home meds UTI urine cx and abx History Interval history: Review of systems Constitutional: No fevers, no malaise, no joint pains CVS: No chest pain, no orthopnea, no dyspnea on exertion, no pedal edema GI: No abdominal pain, no diarrhea, no vomiting, no constipation Respiratory: No shortness of breath, no wheezing, no coughing Hospitalist Physical - Physical exam Narrative exam: General.: Appears well, no distress, nontoxic HEENT: Moist mucous membranes, extraocular muscles intact, no lymphadenopathy Neck: supple Cardiac: S1-S2 heard Lungs: clear to auscultation bilaterally Abdomen: soft , nontender, nondistended, bowel sounds positive Extremities: no edema clubbing or cyanosis Skin: no rash or lesions Neurologic: no gross focal deficits Psych: appropriate behavior, appropriate mood, corporative, judgment intact - Constitutional Vitals: Temp Pulse Resp BP Pulse Ox 97.3 F L 78 16 139/72 97 03/08/18 07:54 03/08/18 09:24 03/08/18 07:54 03/08/18 09:54 03/08/18 07:54 General appearance: Present: no acute distress, well-nourished Results - Labs CBC & Chem 7: 03/07/18 03:55 03/07/18 03:55 Labs: Laboratory Last Values WBC 9.9 K/mm3 (4.5-11.0) 03/07/18 03:55 RBC 4.49 M/mm3 (3.65-5.03) 03/07/18 03:55 Hgb 13.0 gm/dl (11.8-15.2) 03/07/18 03:55 Hct 38.4 % (35.5-45.6) 03/07/18 03:55 MCV 86 fl (84-94) 03/07/18 03:55 MCH 29 pg (28-32) 03/07/18 03:55 MCHC 34 % (32-34) 03/07/18 03:55 RDW 16.7 % (13.2-15.2) H 03/07/18 03:55 Plt Count 230 K/mm3 (140-440) 03/07/18 03:55 Lymph % (Auto) 26.9 % (13.4-35.0) 03/07/18 03:55 [place] % (Auto) 8.0 % (0.0-7.3) H 03/07/18 03:55 Eos % (Auto) 4.0 % (0.0-4.3) 03/07/18 03:55 Baso % (Auto) 0.8 % (0.0-1.8) 03/07/18 03:55 Lymph # 2.7 K/mm3 (1.2-5.4) 03/07/18 03:55 [place] # 0.8 K/mm3 (0.0-0.8) 03/07/18 03:55 Eos # 0.4 K/mm3 (0.0-0.4) 03/07/18 03:55 Baso # 0.1 K/mm3 (0.0-0.1) 03/07/18 03:55 Seg Neutrophils % 60.3 % (40.0-70.0) 03/07/18 03:55 Seg Neutrophils # 5.9 K/mm3 (1.8-7.7) 03/07/18 03:55 Sodium 140 mmol/L (137-145) 03/07/18 03:55 Potassium 3.8 mmol/L (3.6-5.0) 03/07/18 03:55 Chloride 102.8 mmol/L (98-107) 03/07/18 03:55 Carbon Dioxide 22 mmol/L (22-30) 03/07/18 03:55 Anion Gap 19 mmol/L 03/07/18 03:55 BUN 15 mg/dL (9-20) 03/07/18 03:55 Creatinine 0.8 mg/dL (0.8-1.5) 03/07/18 03:55 Estimated GFR > 60 ml/min 03/07/18 03:55 BUN/Creatinine Ratio 19 % 03/07/18 03:55 Glucose 166 mg/dL (75-100) H 03/07/18 03:55 POC Glucose 103 (70-105) 03/08/18 12:29 Calcium 8.4 mg/dL (8.4-10.2) 03/07/18 03:55 Troponin T < 0.010 ng/mL (0.00-0.029) 03/07/18 10:16 Urine Color Yellow (Yellow) 03/07/18 03:58 Urine Turbidity Clear (Clear) 03/07/18 03:58 Urine pH 7.0 (5.0-7.0) 03/07/18 03:58 Ur Specific [place] 1.004 (1.003-1.030) 03/07/18 03:58 Urine Protein <15 mg/dl mg/dL (Negative) 03/07/18 03:58 Urine Glucose (UA) Neg mg/dL (Negative) 03/07/18 03:58 Urine Ketones Neg mg/dL (Negative) 03/07/18 03:58 Urine Blood Mod (Negative) 03/07/18 03:58 Urine Nitrite Neg (Negative) 03/07/18 03:58 Urine Bilirubin Neg (Negative) 03/07/18 03:58 Urine Urobilinogen < 2.0 mg/dL (<2.0) 03/07/18 03:58 Ur Leukocyte Esterase Lg (Negative) 03/07/18 03:58 Urine WBC (Auto) 135.0 /HPF (0.0-6.0) H 03/07/18 03:58 Urine RBC (Auto) 31.0 /HPF (0.0-6.0) 03/07/18 03:58 Urine Bacteria (Auto) 1+ /HPF (Negative) 03/07/18 03:58 Urine Yeast (Budding) 1+ /HPF 03/07/18 03:58 Urine Opiates Screen Presumptive negative 03/07/18 13:01 Urine Methadone Screen Presumptive negative 03/07/18 13:01 Ur Barbiturates Screen Presumptive negative 03/07/18 13:01 Ur Phencyclidine Scrn Presumptive negative 03/07/18 13:01 Ur Amphetamines Screen Presumptive negative 03/07/18 13:01 U Benzodiazepines Scrn Presumptive negative 03/07/18 13:01 Urine Cocaine Screen Presumptive negative 03/07/18 13:01 U Marijuana (THC) Screen Presumptive negative 03/07/18 13:01 Drugs of Abuse Note Disclamer 03/07/18 13:01
[2018-03-09] MEDS: PROVENTIL IH SCH ×2 (08:06→14:39)
--- NOTE | 2018-03-09 09:35 | Progress Note ---
Assessment and Plan Chest pain Suicidal ideation, transferred from [place] Resolving Ischemic Cardiomyopathy EF now improved to 45-50% on [facility] 06/2017 Hx of CAD with CABG in 2001 Hypertension Hx of Psychiatric illness and substance addiction Recommendations: Medical therapy for coronary artery disease to include aspirin, beta blockers, nitrates and statin therapy. In addition, we will add ranexa 500mg twice a day to his medication regimen for chronic angina of small vessel coronary artery disease. Otherwise, conservative cardiac management. Subjective Date of service: 03/09/18 Interval history: Patient is resting in bed comfortably. Objective Vital Signs Temp Pulse Resp BP Pulse Ox 03/09/18 07:44 98.1 F 75 19 121/60 100 03/08/18 21:18 97.6 F 74 24 119/61 99 03/08/18 19:58 98 03/08/18 14:56 97.7 F 81 18 134/70 96 03/08/18 12:24 97.9 F 87 16 114/69 96 03/08/18 09:54 139/72 - Physical Examination General: No Apparent Distress HEENT: Positive: PERRL Cardiac: Positive: Reg Rate and Rhythm Lungs: Positive: Decreased Breath Sounds Neuro: Positive: Grossly Intact Extremities: Absent: edema
[2018-03-09] MEDS: ZESTRIL PO SCH (09:37)
[2018-03-09] MEDS: NEURONTIN PO SCH (09:37)
[2018-03-09] MEDS: IMDUR PO SCH (09:37)
[2018-03-09] MEDS: COREG PO SCH (09:38)
[2018-03-09] MEDS: ASPIRIN PO SCH (09:41)
[2018-03-09] MEDS: HABITROL TD SCH (09:58)
[2018-03-09 13:55] VITALS: BP 106/63
--- NOTE | 2018-03-09 14:25 | Discharge Summary ---
Providers - Providers Date of Admission: 03/07/18 10:44 Date of discharge: 03/09/18 Attending physician: RONAL HAYNES 03/07/18 11:12 Consult to Physician [CONS] Routine Comment: Consulting Provider: IRINEO KENDRICK Physician Instructions: Reason For Exam: chest pain Primary care physician: CRNP Hospitalization Condition: Fair Pertinent studies: CXR Hospital course: 57-year-old man with a history of coronary artery disease underwent five-vessel coronary artery bypass in 2001, a cardiac catheterization 6 months ago at [facility], described with a severe ostial left main stenosis and reported to have a patent left internal mammary artery graft to the LAD, Left ventricular systolic ejection fraction was 45-50%. The patient was currently admitted to [facility], with suicide ideation. He has a long history of psychiatric illness and substance addiction. While in [place], he complained of some chest pain, prompting his transfer to the hospital and eventual admission. Patient was monitored with serial CE and EKG. Cardiology was consulted and his old records reviewed by auger operator. High School History Teacher recommended medical Management. Patient was then discharged to [facility] with outpt follow up. Discharge diagnosis: Chest pain, likley from underlying CAD, medical Mx per cardiology Suicidal ideation, transferred from [place], Ischemic Cardiomyopathy, EF now improved to 45-50% on [facility] 06/2017 Hx of CAD with CABG in 2001 Hypertension, stable Hx of Psychiatric illness and substance addiction, will f/u at [place] H/o left ureter stent, need outpt follow up Physical exam: GENERAL: well-developed and well-nourished white male lying on bed appeared to be in no discomfort. HEENT: Normocephalic. Atraumatic. No conjunctival congestion or icterus. Patient has moist mucous membranes. NECK: Supple. Trachea midline. CHEST/LUNGS: Clear to auscultated bilaterally, breathing nonlabored. No wheezes crackles or rhonchi. HEART/CARDIOVASCULAR: Regular in rate and rhythm. S1 and S2 positive. ABDOMEN: Abdomen is soft, nontender. Patient has normal bowel sounds. SKIN: There is no rash. Warm and dry. NEURO: No focal motor deficit. Follows command. MUSCULOSKELETAL: No joint effusion or tenderness. EXTRIMITY: No edema, no cyanosis or clubbing. PSYCH: Cooperative. Disposition: DC/TX-70 ANOTHER TYPE HLTHCARE Time spent for discharge: 34 minutes Core Measure Documentation - Palliative Care Palliative Care/ Comfort Measures: Not Applicable - Core Measures Any of the following diagnoses?: history only Exam - Constitutional Vitals: Temp Pulse Resp BP Pulse Ox 98.1 F 90 19 106/63 96 03/09/18 11:44 03/09/18 11:44 03/09/18 11:44 03/09/18 11:44 03/09/18 11:44 Plan Activity: advance as tolerated Weight Bearing Status: Weight Bear as Tolerated Diet: low fat, low salt Additional Instructions: Follow-up with urologist in 1 week. F/u with auger operator in 1 to 2 weeks Follow up with: PRIMARY CARE, [Primary Care Provider] - 3-5 Days Prescriptions: AtorvaSTATin [Lipitor] 40 mg PO QHS #30 tablet Carvedilol [Coreg] 6.25 mg PO BID #60 tablet Ranolazine ER [Ranexa ER] 500 mg PO BID #60 tablet
[2018-03-09] MEDS ORDERED: RANEXA ER PO SCH (22:00)
== END 2018-03-09 15:30 | disposition home or self-care (01) | DRG 303 ==
LOC: ED 03:39 → 4A 10:44 → 3A 14:00
PROVIDERS: ADMIT Internal Medicine; ATTEND Internal Medicine
DX: I25.10 Atherosclerotic heart disease of native coronary artery without angina pectoris (principal); N39.0 Urinary tract infection, site not specified; F15.20 Other stimulant dependence, uncomplicated; R45.851 Suicidal ideations; J44.1 Chronic obstructive pulmonary disease with (acute) exacerbation; F17.210 Nicotine dependence, cigarettes, uncomplicated; E86.0 Dehydration; K21.9 Gastro-esophageal reflux disease without esophagitis; I25.5 Ischemic cardiomyopathy; I10 Essential (primary) hypertension; I25.2 Old myocardial infarction; Z87.442 Personal history of urinary calculi; Z95.5 Presence of coronary angioplasty implant and graft; Z95.1 Presence of aortocoronary bypass graft; Z82.49 Family history of ischemic heart disease and other diseases of the circulatory system; Z79.899 Other long term (current) drug therapy; Z79.82 Long term (current) use of aspirin; Z88.8 Allergy status to other drugs, medicaments and biological substances; Z88.1 Allergy status to other antibiotic agents
CPT/HCPCS: 36415; 71046; 80048; 80307; 81001; 82962; 84484; 85025; 87086; 93005; 93010; 94640; J3010; J7512

== ENCOUNTER 2018-03-11 16:26 | Emergency (ER) | payer MEDICARE ==
--- NOTE | 2018-03-11 17:30 | Emergency Department Report ---
ED Chest Pain HPI - General Chief Complaint: Chest Pain Stated Complaint: CHEST PAIN Time Seen by Provider: 03/11/18 17:19 Source: patient, EMS Mode of arrival: Stretcher Limitations: No Limitations - History of Present Illness Initial Comments: Methadone 57-year-old male with history of hypertension and coronary disease. He has a history of PTCA with cardiac stent. Had recent cardiac cath 6 months ago. He was recently admitted to our hospital for chest pain evaluation. He is staying at the [facility]. Chest pain occurred while he was sitting in a class. MD Complaint: chest pain -: Sudden, hour(s) (2) Onset: during rest Pain Location: substernal, left chest Pain Radiation: none Severity scale (0 -10): 8 Quality: sharp Consistency: constant Improves With: nothing Worsens With: nothing Context: recent illness, other (recent hospitalization) - Related Data Home Medications Medication Instructions Recorded Confirmed Last Taken Gabapentin [Neurontin] 2 cap PO BID 02/17/17 02/20/17 02/17/17 Lisinopril [Zestril TAB] 10 mg PO QDAY 02/17/17 02/20/17 02/17/17 10MG Previous Rx's Medication Instructions Recorded Last Taken Type Aspirin [Aspirin TAB] 325 mg PO QDAY #30 tablet 02/23/17 Unknown Rx Gabapentin [Neurontin] 600 mg PO BID #60 capsule 02/23/17 Unknown Rx ISOSORBIDE MONOnitrate [Imdur ER] 60 mg PO QDAY #30 tablet 02/23/17 Unknown Rx oxyCODONE /ACETAMINOPHEN [Percocet 1 tab PO Q6H PRN #30 tablet 02/23/17 Unknown Rx 5/325 mg] AtorvaSTATin [Lipitor] 40 mg PO QHS #30 tablet 03/09/18 Unknown Rx Carvedilol [Coreg] 6.25 mg PO BID #60 tablet 03/09/18 Unknown Rx Ranolazine ER [Ranexa ER] 500 mg PO BID #60 tablet 03/09/18 Unknown Rx Allergies Allergy/AdvReac Type Severity Reaction Status Date / Time oxytetracycline Allergy HIVES,RASH Verified 07/13/14 11:57 [From Terramycin] oxytetracycline HCl Allergy HIVES,RASH Verified 07/13/14 11:57 [From Terramycin] Heart Score - HEART Score History: Slightly suspicious EKG: Normal Age: 45-65 Risk factors: > 3 risk factors or hx of atherosclerotic disease Troponin: < normal limit HEART Score: 3 ED Review of Systems ROS: Stated complaint: CHEST PAIN Other details as noted in HPI Comment: All other systems reviewed and negative Constitutional: denies: chills, fever Eyes: denies: eye pain ENT: denies: ear pain, throat pain Respiratory: denies: cough, shortness of breath, wheezing Cardiovascular: denies: chest pain, palpitations Endocrine: no symptoms reported Gastrointestinal: denies: abdominal pain, nausea, diarrhea Genitourinary: denies: urgency, dysuria Musculoskeletal: denies: back pain, joint swelling, arthralgia Psychiatric: denies: anxiety, depression ED Past Medical Hx - Past Medical History Previous Medical History?: Yes Hx Hypertension: Yes Hx Heart Attack/AMI: Yes Hx GERD: Yes Hx Arthritis: Yes Hx Kidney Stones: Yes Hx Psychiatric Treatment: Yes (meth abuse) Hx Asthma: Yes (no inhaler use. no recent attacks) Hx COPD: Yes - Surgical History Past Surgical History?: Yes Hx Coronary Stent: Yes (1) Hx Open Heart Surgery: Yes (2002- vessel) Additional Surgical History: back surgery - Social History Smoking Status: Never Smoker - Medications Home Medications: Home Medications Medication Instructions Recorded Confirmed Last Taken Type Gabapentin [Neurontin] 2 cap PO BID 02/17/17 02/20/17 02/17/17 History Lisinopril [Zestril TAB] 10 mg PO QDAY 02/17/17 02/20/17 02/17/17 History 10MG Aspirin [Aspirin TAB] 325 mg PO QDAY #30 tablet 02/23/17 Unknown Rx Gabapentin [Neurontin] 600 mg PO BID #60 capsule 02/23/17 Unknown Rx ISOSORBIDE MONOnitrate [Imdur ER] 60 mg PO QDAY #30 tablet 02/23/17 Unknown Rx oxyCODONE /ACETAMINOPHEN [Percocet 1 tab PO Q6H PRN #30 tablet 02/23/17 Unknown Rx 5/325 mg] AtorvaSTATin [Lipitor] 40 mg PO QHS #30 tablet 03/09/18 Unknown Rx Carvedilol [Coreg] 6.25 mg PO BID #60 tablet 03/09/18 Unknown Rx Ranolazine ER [Ranexa ER] 500 mg PO BID #60 tablet 03/09/18 Unknown Rx ED Physical Exam - General Limitations: No Limitations General appearance: alert, in no apparent distress - Head Head exam: Present: atraumatic, normocephalic - Eye Eye exam: Present: normal appearance - ENT ENT exam: Present: mucous membranes moist - Neck Neck exam: Present: normal inspection - Respiratory Respiratory exam: Present: normal lung sounds bilaterally. Absent: respiratory distress, wheezes, rales, rhonchi - Cardiovascular Cardiovascular Exam: Present: regular rate, normal rhythm, normal heart sounds. Absent: systolic murmur, diastolic murmur, rubs, gallop - GI/Abdominal GI/Abdominal exam: Present: soft, normal bowel sounds. Absent: distended, tenderness, guarding, rebound - Rectal Rectal exam: Present: deferred - Extremities Exam Extremities exam: Present: normal inspection - Back Exam Back exam: Present: normal inspection - Neurological Exam Neurological exam: Present: alert, oriented X3 - Psychiatric Psychiatric exam: Present: normal affect, normal mood - Skin Skin exam: Present: warm, dry, intact, normal color. Absent: rash ED Course Vital Signs 03/11/18 03/11/18 03/11/18 17:00 17:07 17:54 Temperature 98.9 F 98.9 F Pulse Rate 83 83 81 Respiratory 17 17 Rate Blood Pressure 118/66 140/73 Blood Pressure [Left] O2 Sat by Pulse 99 99 Oximetry 03/11/18 19:09 Temperature 98.1 F Pulse Rate 81 Respiratory 12 Rate Blood Pressure Blood Pressure 114/60 [Left] O2 Sat by Pulse 98 Oximetry AURORA score - Aurora Score Age > 65: (0) No Aspirin use within the Past 7 Days: (1) Yes 3 or more CAD Risk Factors: (0) No 2 or more Angina events in past 24 hrs: (0) No Known CAD with more than 50% Stenosis: (1) Yes Elevated Cardiac Markers: (0) No ST Deviation Greater than 0.5mm: (0) No AURORA Score: 2 ED Medical Decision Making - Lab Data Result diagrams: 03/11/18 17:18 03/11/18 17:18 Laboratory Results - last 24 hr 03/11/1818 03/11/18 17:18 17:18 19:35 WBC 11.7 H RBC 4.80 Hgb 13.1 Hct 41.2 MCV 86 MCH 27 L MCHC 32 RDW 16.2 H Plt Count 326 Lymph % (Auto) 23.8 [place] % (Auto) 8.1 H Eos % (Auto) 2.9 Baso % (Auto) 0.6 Lymph # 2.8 [place] # 0.9 H Eos # 0.3 Baso # 0.1 Seg Neutrophils % 64.6 Seg Neutrophils # 7.5 Sodium 140 Potassium 4.9 D Chloride 98.3 Carbon Dioxide 29 D Anion Gap 18 BUN 15 Creatinine 0.9 Estimated GFR > 60 BUN/Creatinine Ratio 17 Glucose 122 H Calcium 9.5 Troponin T < 0.010 < 0.010 - EKG Data 03/11/18 17:29 EKG obtained at 1701 Rate 90 beats a minute normal sinus rhythm normal axis right bundle-branch block no significant ST elevation or signs of ischemia - Medical Decision Making Mr. Gonzalez presents with stable angina. I reviewed recent discharge summary 2 days ago. He has a history of 5 vessel CABG. Recent cardiac catheterization results were obtained from [facility]. Our metallurgical technician evaluated patient during recent hospitalization. Medical management was recommended. Mr. Gonzalez explained that he was unable to obtain his medications until today. I do not see evidence of acute coronary syndrome. I do not see indication of unstable angina. He is comfortable appears well. 2 sets of troponins were normal. Mr. Gonzalez is discharged with diagnosis stable angina. He has been instructed to take his medicines as prescribed. Critical care attestation.: If time is entered above; I have spent that time in minutes in the direct care of this critically ill patient, excluding procedure time. ED Disposition Clinical Impression: Stable angina, Chest pain Disposition: TO HOME OR SELFCARE Is pt being admited?: No Does the pt Need Aspirin: No Condition: Stable Instructions: Angina (ED), Chest Pain (ED) Referrals: PRIMARY CAREMD [Primary Care Provider] - 3-5 Days IRINEO KENDRICK MD [Staff Physician] - 3-5 Days Time of Disposition: 20:40
[2018-03-11] MEDS ORDERED: NITROSTAT SL ONE (17:37)
[2018-03-11] MEDS ORDERED: BABY ASPIRIN PO ONE (17:37)
[2018-03-11 17:53] LABS: BUN/Creatinine Ratio 17; Blood Urea Nitrogen 15 mg/dL (9-20); Calcium 9.5 mg/dL (8.4-10.2); Hemolysis Index 11
[2018-03-11 17:55] LABS: Basophils # (Auto) 0.1 K/mm3 (0.0-0.1); Basophils % (Auto) 0.6 % (0.0-1.8); Eosinophils # (Auto) 0.3 K/mm3 (0.0-0.4); Eosinophils % (Auto) 2.9 % (0.0-4.3); Hematocrit 41.2 % (35.5-45.6); Hemoglobin 13.1 gm/dl (11.8-15.2); Lymphocytes # (Auto) 2.8 K/mm3 (1.2-5.4); Lymphocytes % (Auto) 23.8 % (13.4-35.0); Mean Corpuscular HGB Conc 32 % (32-34); Mean Corpuscular Hemoglobin 27 pg (28-32); Mean Corpuscular Volume 86 fl (84-94); Monocytes # (Auto) 0.9 K/mm3 (0.0-0.8); Monocytes % (Auto) 8.1 % (0.0-7.3); Platelet Count 326 K/mm3 (140-440); Red Cell Distribution Width 16.2 % (13.2-15.2)
[2018-03-11 21:16] VITALS: BP 119/53
== END 2018-03-11 21:25 | disposition home or self-care (01) ==
LOC: ED 16:26
DX: I20.9 Angina pectoris, unspecified (principal); Z79.82 Long term (current) use of aspirin; I11.0 Hypertensive heart disease with heart failure; K21.9 Gastro-esophageal reflux disease without esophagitis; J44.9 Chronic obstructive pulmonary disease, unspecified; Z95.1 Presence of aortocoronary bypass graft
CPT/HCPCS: 36415; 80048; 84484; 85025; 93005; 93010; 99284

== ENCOUNTER 2021-01-02 19:09 | Inpatient (IN) | payer MEDICARE ==
[2021-01-02] MEDS ORDERED: SODIUM CHLORIDE 0.9% 50 ML IVPB IV ONE (19:41)
[2021-01-02 19:42] LABS: Basophils # (Auto) 0.1 K/mm3 (0.0-0.1); Basophils % (Auto) 0.5 % (0.0-1.8); Eosinophils # (Auto) 0.2 K/mm3 (0.0-0.4); Eosinophils % (Auto) 1.1 % (0.0-4.3); Hematocrit 38.7 % (35.5-45.6); Lymphocytes # (Auto) 2.9 K/mm3 (1.2-5.4); Lymphocytes % (Auto) 18.1 % (13.4-35.0); Mean Corpuscular HGB Conc 34 % (32-34); Mean Corpuscular Volume 87 fl (84-94); Monocytes # (Auto) 1.1 K/mm3 (0.0-0.8); Monocytes % (Auto) 7.1 % (0.0-7.3); Platelet Count 364 K/mm3 (140-440); Red Blood Count 4.47 M/mm3 (3.65-5.03); Red Cell Distribution Width 16.6 % (13.2-15.2)
[2021-01-02] MEDS ORDERED: ALTEPLASE 100 MG INJ KIT IV ONE ×2 (19:45)
[2021-01-02] MEDS ORDERED: SODIUM CHLORIDE 0.9% 1000 ML 1,000 ML IV ONE ×5 (19:53→22:22)
[2021-01-02 19:57] LABS: INR 0.96 (0.87-1.13)
[2021-01-02 19:58] LABS: Partial Thromboplastin Time 28.9 Sec. (24.2-36.6); Thrombin Time 16.2 Sec. (15.1-19.6)
[2021-01-02 20:00] LABS: Creatine Kinase MB 1.2 ng/mL (0.0-4.0)
--- NOTE | 2021-01-02 20:01 | Cat Scan Report ---
. CT head/brain wo con INDICATION / CLINICAL INFORMATION: 60 years Male; Stroke symptoms. TECHNIQUE: Routine CT head without contrast. All CT scans at this location are performed using CT dos e reduction for ALARA by means of automated exposure control. COMPARISON: None. FINDINGS: BRAIN / INTRACRANIAL CONTENTS: A few small lacunar infarcts suggested in the gangliocapsular regions. Otherwise, no acute hemorrhage, mass effect, midline shift, hydrocephalus, or acute, large territori al infarct. Mild cerebral atrophy. There are mild areas of decreased attenuation in the white matter of the cerebral hemispheres. These are nonspecific findings and may be related to microangiopathy (hypertension, diabetes, atheroscleros is), given the patient's age. It might be difficult to evaluate for small areas of ischemia without d iffusion imaging by MRI. CRANIOCERVICAL JUNCTION: No significant abnormality. ORBITS: No significant abnormality of visualized orbits. SINUSES / MASTOIDS: Visualized paranasal sinuses and mastoid air cells are essentially clear. ADDITIONAL FINDINGS: Atherosclerotic disease is seen in the anterior and posterior circulation. IMPRESSION: 1. No focal mass, hemorrhage, hydrocephalus, or acute, large territorial infarct. CODE STROKE: Exam Completed (ABSORPTION PLANT OPERATOR/CDT): 01/02/2021 6:41 PM Exam Reviewed (ABSORPTION PLANT OPERATOR/CDT): 6:55 PM Time of Communication (ABSORPTION PLANT OPERATOR/CDT): 7:00 PM Licensed Practitioner Receiving Report: Dr. Huitron Signer Name: Sam Schmitt MD, III Signed: 01/02/2021 7:56 PM Workstation Name: [id number]
--- NOTE | 2021-01-02 20:10 | Consultation ---
Medications and Allergies Allergies Allergy/AdvReac Type Severity Reaction Status Date / Time oxytetracycline Allergy HIVES,RASH Verified 01/02/21 19:11 [From Terramycin] oxytetracycline HCl Allergy HIVES,RASH Verified 07/13/14 11:57 [From Terramycin] Home Medications Medication Instructions Recorded Confirmed Last Taken Type Gabapentin 2 cap PO BID 02/17/17 02/20/17 02/17/17 History lisinopriL [Zestril TAB] 10 mg PO QDAY 02/17/17 02/20/17 02/17/17 History 10 MG Aspirin 325 mg PO QDAY #30 tablet 02/23/17 Unknown Rx Gabapentin 600 mg PO BID #60 capsule 02/23/17 Unknown Rx ISOSORBIDE MONOnitrate [Imdur ER] 60 mg PO QDAY #30 tablet 02/23/17 Unknown Rx oxyCODONE /ACETAMINOPHEN [Percocet 1 tab PO Q6H PRN #30 tablet 02/23/17 Unknown Rx 5/325 mg] AtorvaSTATin [Lipitor] 40 mg PO QHS #30 tablet 03/09/18 Unknown Rx Ranolazine ER [Ranexa ER] 500 mg PO BID #60 tablet 03/09/18 Unknown Rx carvediloL [Coreg] 6.25 mg PO BID #60 tablet 03/09/18 Unknown Rx Active Meds: Active Medications Sodium Chloride (Nacl 0.9% 1000 Ml) 1,000 mls @ 999 mls/hr IV BOLUS ONE Stop: 01/02/21 20:53 Last Admin: 01/02/21 20:03 Dose: 999 mls/hr Documented by: Sodium Chloride (Nacl 0.9% 1000 Ml) 1,000 mls @ 999 mls/hr IV BOLUS ONE Stop: 01/02/21 20:53 Last Admin: 01/02/21 20:04 Dose: 999 mls/hr Documented by: Physical Examination - Vital Signs Vital Signs: Vital Signs Temp Pulse Resp BP Pulse Ox 97.9 F 88 18 83/52 98 01/02/21 19:14 01/02/21 19:14 01/02/21 19:14 01/02/21 19:14 01/02/21 19:14 Results - Laboratory Findings CBC and BMP: 01/02/21 19:36 Abnormal Lab Findings: Abnormal Labs 01/02/21 01/02/21 19:36 19:36 WBC 15.8 H RDW 16.6 H Bee # (Auto) 1.1 H Seg Neutrophils % 73.2 H Seg Neutrophils # 11.5 H Total Creatine Kinase 47 L Assessment and Plan [place] Consult Note # Demographics Consult Type: Acute Stroke Level 1 (0-4.5 hrs) Patient Location: Emergency Room First Name: Omero Last Name: Lisa Date of : 1960 Age: 60 Gender: Male Time of Initial Page (): 01/02/2021, 19:21 Time of Return Call (): 01/02/2021, 19:21 # HPI History: slurred speech and right sided weakness, pt also reprotign double vision onset at 1900 EST # Scores Time of exam and NIHSS (): 01/02/2021, 19:36 Level of Consciousness 1a: [0] = Alert; keenly responsive LOC Questions 1b: [0] = Answers both questions correctly LOC Commands 1c: [0] = Performs both tasks correctly Best Gaze 2: [0] = Normal Visual 3: [0] = No visual loss Facial Palsy 4: [1] = Minor paralysis Motor Arm Left 5a: [0] = No drift Motor Arm Right 5b: [1] = Drift Motor Leg Left 6a: [0] = No drift Motor Leg Right 6b: [0] = No drift Limb Ataxia 7: [0] = Absent Sensory 8: [1] = [id number] sensory loss Best Language 9: [0] = No aphasia Dysarthria 10: [0] = Normal Extinction and Inattention 11: [0] = No abnormality NIHSS Total: 3 # Data Time Head CT personally read by me (): 01/02/2021, 19:[address]: no bleed, preliminarily reviewed by me, please refer to radiology read for official reading, partial view of imagines, await rads read for administration of IV tPA # Assessment Impression: Ischemic Stroke (Acute), Stroke Mimic # Plan Thrombolytic/Intervention: IV thrombolytic, IV alteplase 0.9 mg/kg, max dose 90 mg; 10% of dose given over 1 minute IVP, remaining 90% given as infusion over 1 hour Intraarterial Exclusion: clinically consistent with small vessel disease Time IV Thrombolytic Recommended (Eastern Time): 01/02/2021, 19:39 Blood Pressure Management: nicardipine, labetolol Target Blood Pressure: SBP < 180, DBP < 105 Labs: hemoglobin A1c, lipid panel Imaging: (urgency: STAT in ED): CT Angiogram Head and CT Angiogram Neck AND call back with results if abnormal Imaging: (urgency: routine admission): MRI Brain without contrast Diagnostic Test: echo without bubble study Therapy/Evaluation: NPO until swallow evaluation, PT/OT evaluation, speech/swallow consultation Medication: start statin with goal of LDL < 70 DVT Prophylaxis: SCD Thrombolytic Administration Recommendations: I have collected independent hist ory specific to time last normal or last known well. We have collaborated with the ED provider and at this time, we have the most current timeline with the information that is available., BP goal< 180/105 for 24hrs post Thrombolytic administration, Use Labetolol 10-20mg IV prn or Nicardipine gtt to maintain BP parameters, No antiplatelets or anticoagulants for next 24 hrs unless indicated for emergent IA procedure or other life threatening situation, ICU admission, Call back if there is any decline in neurological condition Other: LDL < 70, If patient has any neurological deterioration please call me back immediately, permissive hypertension, telemetry monitoring, I have discussed my recommendations with the referring provider Additional Recommendations: due to technological failure (Wifi not adequate in pt room to complete the consults) consent for IV tPA and contraindications could not be reviewed. ED doc to perform. Disposition: admit # Logistics Telemedicine: Interactive 2 way audio and visual telecommunication technology was utilized during this visit
[2021-01-02] MEDS ORDERED: cefTRIAXone/NS 2 GM/100 ML 2 GM/100 ML BAG IV ONE (20:12)
[2021-01-02] MEDS ORDERED: KETOROLAC 30 MG/1 ML INJ IV ONE (21:06)
--- NOTE | 2021-01-02 21:06 | Emergency Department Report ---
ED Neuro Deficit HPI - General Chief Complaint: Neuro Symptoms/Deficit Stated Complaint: POSSIBLE STROKE Time Seen by Provider: 01/02/21 19:24 Source: family Mode of arrival: Ambulatory Limitations: No Limitations - History of Present Illness Initial Comments: Patient is a 60-year-old male with a past medical history of hypertension who is presenting with 15 to 20 minutes of slurred speech. Patient states he was watching [employer] videos at home resting when symptoms started. He also states he has some generalized weakness but thinks his right is more weak than his left. Patient denies any nausea vomiting diarrhea fevers or chills. Does state he has some mild lower back pain and has a history of kidney stones. - Related Data Home Medications: Home Medications Medication Instructions Recorded Confirmed Last Taken Gabapentin 2 cap PO BID 02/17/17 02/20/17 02/17/17 lisinopriL [Zestril TAB] 10 mg PO QDAY 02/17/17 02/20/17 02/17/17 10 MG Previous Rx's Medication Instructions Recorded Last Taken Type Aspirin 325 mg PO QDAY #30 tablet 02/23/17 Unknown Rx Gabapentin 600 mg PO BID #60 capsule 02/23/17 Unknown Rx ISOSORBIDE MONOnitrate [Imdur ER] 60 mg PO QDAY #30 tablet 02/23/17 Unknown Rx oxyCODONE /ACETAMINOPHEN [Percocet 1 tab PO Q6H PRN #30 tablet 02/23/17 Unknown Rx 5/325 mg] AtorvaSTATin [Lipitor] 40 mg PO QHS #30 tablet 03/09/18 Unknown Rx Ranolazine ER [Ranexa ER] 500 mg PO BID #60 tablet 03/09/18 Unknown Rx carvediloL [Coreg] 6.25 mg PO BID #60 tablet 03/09/18 Unknown Rx Allergies/Adverse Reactions: Allergies Allergy/AdvReac Type Severity Reaction Status Date / Time oxytetracycline Allergy HIVES,RASH Verified 01/02/21 19:11 [From Terramycin] oxytetracycline HCl Allergy HIVES,RASH Verified 07/13/14 11:57 [From Terramycin] ED Review of Systems ROS: Stated complaint: POSSIBLE STROKE Other details as noted in HPI Comment: All other systems reviewed and negative ED Past Medical Hx - Past Medical History Hx Hypertension: Yes Hx Heart Attack/AMI: Yes Hx GERD: Yes Hx Arthritis: Yes Hx Kidney Stones: Yes Hx Psychiatric Treatment: Yes (meth abuse) Hx Asthma: Yes (no inhaler use. no recent attacks) Hx COPD: Yes - Surgical History Hx Coronary Stent: Yes (1) Hx Open Heart Surgery: Yes (2001- vessel) Additional Surgical History: back surgery - Social History Smoking Status: Current Every Day Smoker Substance Use Type: None - Medications Home Medications: Home Medications Medication Instructions Recorded Confirmed Last Taken Type Gabapentin 2 cap PO BID 02/17/17 02/20/17 02/17/17 History lisinopriL [Zestril TAB] 10 mg PO QDAY 02/17/17 02/20/17 02/17/17 History 10 MG Aspirin 325 mg PO QDAY #30 tablet 02/23/17 Unknown Rx Gabapentin 600 mg PO BID #60 capsule 02/23/17 Unknown Rx ISOSORBIDE MONOnitrate [Imdur ER] 60 mg PO QDAY #30 tablet 02/23/17 Unknown Rx oxyCODONE /ACETAMINOPHEN [Percocet 1 tab PO Q6H PRN #30 tablet 02/23/17 Unknown Rx 5/325 mg] AtorvaSTATin [Lipitor] 40 mg PO QHS #30 tablet 03/09/18 Unknown Rx Ranolazine ER [Ranexa ER] 500 mg PO BID #60 tablet 03/09/18 Unknown Rx carvediloL [Coreg] 6.25 mg PO BID #60 tablet 03/09/18 Unknown Rx ED Neuro Physical Exam - General Limitations: No Limitations General appearance: alert, in no apparent distress Suspected Stroke: Yes - Head Head exam: Present: atraumatic, normocephalic - Eye Eye exam: Present: normal appearance. Absent: PERRL, EOMI (Family really is engrafted and is playful and the mom wished him all the work) - ENT ENT exam: Present: normal orophraynx (This 20 is a cold), mucous membranes moist - Neck Neck exam: Present: normal inspection - Respiratory Respiratory exam: Present: normal lung sounds bilaterally. Absent: respiratory distress, wheezes, rales - Cardiovascular Cardiovascular Exam: Present: regular rate, normal rhythm, normal heart sounds. Absent: systolic murmur, diastolic murmur, rubs, gallop - GI/Abdominal GI/Abdominal exam: Present: soft, normal bowel sounds. Absent: distended, tenderness, guarding, rebound - Rectal Rectal exam: Present: deferred - Extremities Exam Extremities exam: Present: normal inspection - Back Exam Back exam: Present: normal inspection - Neurological Exam Neurological exam: Present: alert, oriented X3, CN II-XII intact, motor sensory deficit (Angus number) - NIHSS Assessment Interval: Baseline 1a. Level of Consciousness: alert/keenly responsive 1b. LOC Questions: answers both correctly (Arthritis in the right hand) 1c. LOC Commands: performs tasks correctly 2. Best Gaze: normal 3. Visual: no visual loss 4. Facial Palsy: normal symmetrical movement (He has a distracting injury so I can think) 5b. Motor Arm Right: no drift 5a. Motor Arm Left: no drift 6a. Motor Leg Left: no drift 6b. Motor Leg Right: no drift 7. Limb Ataxia: absent 8. Sensory: normal 9. Best Language: no aphasia 10. Dysarthria: mild/moderate dysarthria 11. Extinction/Inattention: no abnormality Total Score: 1 Stroke Severity: Minor Stroke - Psychiatric Psychiatric exam: Present: normal affect, normal mood - Skin Skin exam: Present: warm, dry, intact, normal color. Absent: rash ED Course Vital Signs 01/02/21 01/02/21 01/02/21 19:14 20:01 20:15 Temperature 97.9 F Pulse Rate 88 77 Respiratory 18 23 19 Rate Blood Pressure 73/44 70/33 Blood Pressure 83/52 [Right] O2 Sat by Pulse 98 98 98 Oximetry 01/02/21 01/02/21 01/02/21 20:31 20:45 21:15 Temperature Pulse Rate 77 Respiratory 12 19 Rate Blood Pressure 79/34 115/94 91/46 Blood Pressure [Right] O2 Sat by Pulse 100 99 100 Oximetry 01/02/21 01/02/21 01/02/21 21:31 21:32 22:01 Temperature Pulse Rate Respiratory 16 Rate Blood Pressure 84/33 88/35 Blood Pressure [Right] O2 Sat by Pulse 100 100 Oximetry 01/02/21 22:15 Temperature Pulse Rate Respiratory Rate Blood Pressure 101/46 Blood Pressure [Right] O2 Sat by Pulse 100 Oximetry - Reevaluation(s) Reevaluation #2: 01/02/21 21:04 Patient's blood pressure is improved to 115 systolic. States that his slurred speech is improved and I do notice a difference in the way he is speaking. Is slurred speech may have been secondary to his hypotension. Do not appreciate any right-sided weakness with his arms at this time. Will hold TPA. - Lab Data Result diagrams: 01/02/21 19:36 01/02/21 19:36 Lab Results 01/02/21 01/02/21 01/02/21 Range/Units 19:36 19:36 19:36 WBC 15.8 H (4.5-11.0) K/mm3 RBC 4.47 (3.65-5.03) M/mm3 Hgb 13.0 (11.8-15.2) gm/dl Hct 38.7 (35.5-45.6) % MCV 87 (84-94) fl MCH 29 (28-32) pg MCHC 34 (32-34) % RDW 16.6 H (13.2-15.2) % Plt Count 364 (140-440) K/mm3 Lymph % (Auto) 18.1 (13.4-35.0) % Barber % (Auto) 7.1 (0.0-7.3) % Eos % (Auto) 1.1 (0.0-4.3) % Baso % (Auto) 0.5 (0.0-1.8) % Lymph # (Auto) 2.9 (1.2-5.4) K/mm3 Barber # (Auto) 1.1 H (0.0-0.8) K/mm3 Eos # (Auto) 0.2 (0.0-0.4) K/mm3 Baso # (Auto) 0.1 (0.0-0.1) K/mm3 Seg Neutrophils % 73.2 H (40.0-70.0) % Seg Neutrophils # 11.5 H (1.8-7.7) K/mm3 PT 12.6 (12.2-14.9) Sec. INR 0.96 (0.87-1.13) APTT 28.9 (24.2-36.6) Sec. Thrombin Time 16.2 (15.1-19.6) Sec. Sodium (137-145) mmol/L Potassium (3.6-5.0) mmol/L Chloride (98-107) mmol/L Carbon Dioxide (22-30) mmol/L Anion Gap mmol/L BUN (9-20) mg/dL Creatinine (0.8-1.3) mg/dL Estimated GFR ml/min BUN/Creatinine Ratio % Glucose (75-100) mg/dL POC Glucose (70-105) mg/dL Lactic Acid (0.7-2.0) mmol/L Calcium (8.4-10.2) mg/dL Total Bilirubin (0.1-1.2) mg/dL AST (5-40) units/L ALT (7-56) units/L Alkaline Phosphatase (35-129) units/L Total Creatine Kinase 47 L (55-170) units/L CK-MB (CK-2) 1.2 (0.0-4.0) ng/mL CK-MB (CK-2) Rel Index 2.5 (0-4) Troponin T < 0.010 (0.00-0.029) ng/mL Total Protein (6.3-8.2) g/dL Albumin (3.9-5) g/dL Albumin/Globulin Ratio % Urine Color (Yellow) Urine Turbidity (Clear) Urine pH (5.0-7.0) Ur Specific [place] (1.003-1.030) Urine Protein (Negative) mg/dL Urine Glucose (UA) (Negative) mg/dL Urine Ketones (Negative) mg/dL Urine Blood (Negative) Urine Nitrite (Negative) Urine Bilirubin (Negative) Urine Urobilinogen (<2.0) mg/dL Ur Leukocyte Esterase (Negative) Urine WBC (Auto) (0.0-6.0) /HPF Urine RBC (Auto) (0.0-6.0) /HPF Hyaline Casts /LPF Urine Mucus /HPF Urine Yeast (Budding) /HPF 01/02/21 01/02/21 01/02/21 Range/Units 19:36 19:43 20:21 WBC (4.5-11.0) K/mm3 RBC (3.65-5.03) M/mm3 Hgb (11.8-15.2) gm/dl Hct (35.5-45.6) % MCV (84-94) fl MCH (28-32) pg MCHC (32-34) % RDW (13.2-15.2) % Plt Count (140-440) K/mm3 Lymph % (Auto) (13.4-35.0) % Barber % (Auto) (0.0-7.3) % Eos % (Auto) (0.0-4.3) % Baso % (Auto) (0.0-1.8) % Lymph # (Auto) (1.2-5.4) K/mm3 Barber # (Auto) (0.0-0.8) K/mm3 Eos # (Auto) (0.0-0.4) K/mm3 Baso # (Auto) (0.0-0.1) K/mm3 Seg Neutrophils % (40.0-70.0) % Seg Neutrophils # (1.8-7.7) K/mm3 PT (12.2-14.9) Sec. INR (0.87-1.13) APTT (24.2-36.6) Sec. Thrombin Time (15.1-19.6) Sec. Sodium 134 L (137-145) mmol/L Potassium 4.6 (3.6-5.0) mmol/L Chloride 100.5 (98-107) mmol/L Carbon Dioxide 18 L (22-30) mmol/L Anion Gap 20 mmol/L BUN 41 H (9-20) mg/dL Creatinine 1.8 H (0.8-1.3) mg/dL Estimated GFR 39 ml/min BUN/Creatinine Ratio 23 % Glucose 134 H (75-100) mg/dL POC Glucose 129 H (70-105) mg/dL Lactic Acid 2.50 H* (0.7-2.0) mmol/L Calcium 9.1 (8.4-10.2) mg/dL Total Bilirubin 0.40 (0.1-1.2) mg/dL AST 13 (5-40) units/L ALT 19 (7-56) units/L Alkaline Phosphatase 63 (35-129) units/L Total Creatine Kinase (55-170) units/L CK-MB (CK-2) (0.0-4.0) ng/mL CK-MB (CK-2) Rel Index (0-4) Troponin T (0.00-0.029) ng/mL Total Protein 6.9 (6.3-8.2) g/dL Albumin 3.7 L (3.9-5) g/dL Albumin/Globulin Ratio 1.2 % Urine Color (Yellow) Urine Turbidity (Clear) Urine pH (5.0-7.0) Ur Specific [place] (1.003-1.030) Urine Protein (Negative) mg/dL Urine Glucose (UA) (Negative) mg/dL Urine Ketones (Negative) mg/dL Urine Blood (Negative) Urine Nitrite (Negative) Urine Bilirubin (Negative) Urine Urobilinogen (<2.0) mg/dL Ur Leukocyte Esterase (Negative) Urine WBC (Auto) (0.0-6.0) /HPF Urine RBC (Auto) (0.0-6.0) /HPF Hyaline Casts /LPF Urine Mucus /HPF Urine Yeast (Budding) /HPF 01/02/21 Range/Units 21:20 WBC (4.5-11.0) K/mm3 RBC (3.65-5.03) M/mm3 Hgb (11.8-15.2) gm/dl Hct (35.5-45.6) % MCV (84-94) fl MCH (28-32) pg MCHC (32-34) % RDW (13.2-15.2) % Plt Count (140-440) K/mm3 Lymph % (Auto) (13.4-35.0) % Barber % (Auto) (0.0-7.3) % Eos % (Auto) (0.0-4.3) % Baso % (Auto) (0.0-1.8) % Lymph # (Auto) (1.2-5.4) K/mm3 Barber # (Auto) (0.0-0.8) K/mm3 Eos # (Auto) (0.0-0.4) K/mm3 Baso # (Auto) (0.0-0.1) K/mm3 Seg Neutrophils % (40.0-70.0) % Seg Neutrophils # (1.8-7.7) K/mm3 PT (12.2-14.9) Sec. INR (0.87-1.13) APTT (24.2-36.6) Sec. Thrombin Time (15.1-19.6) Sec. Sodium (137-145) mmol/L Potassium (3.6-5.0) mmol/L Chloride (98-107) mmol/L Carbon Dioxide (22-30) mmol/L Anion Gap mmol/L BUN (9-20) mg/dL Creatinine (0.8-1.3) mg/dL Estimated GFR ml/min BUN/Creatinine Ratio % Glucose (75-100) mg/dL POC Glucose (70-105) mg/dL Lactic Acid (0.7-2.0) mmol/L Calcium (8.4-10.2) mg/dL Total Bilirubin (0.1-1.2) mg/dL AST (5-40) units/L ALT (7-56) units/L Alkaline Phosphatase (35-129) units/L Total Creatine Kinase (55-170) units/L CK-MB (CK-2) (0.0-4.0) ng/mL CK-MB (CK-2) Rel Index (0-4) Troponin T (0.00-0.029) ng/mL Total Protein (6.3-8.2) g/dL Albumin (3.9-5) g/dL Albumin/Globulin Ratio % Urine Color Yellow (Yellow) Urine Turbidity Slightly-cloudy (Clear) Urine pH 5.0 (5.0-7.0) Ur Specific [place] 1.008 (1.003-1.030) Urine Protein 30 mg/dl (Negative) mg/dL Urine Glucose (UA) Neg (Negative) mg/dL Urine Ketones Neg (Negative) mg/dL Urine Blood Sm (Negative) Urine Nitrite Neg (Negative) Urine Bilirubin Neg (Negative) Urine Urobilinogen < 2.0 (<2.0) mg/dL Ur Leukocyte Esterase Lg (Negative) Urine WBC (Auto) 158.0 H (0.0-6.0) /HPF Urine RBC (Auto) 10.0 (0.0-6.0) /HPF Hyaline Casts 6 /LPF Urine Mucus Few /HPF Urine Yeast (Budding) 1+ /HPF - Medical Decision Making On the patient's arrival to the emergency department he was briefly seen by myself in triage a code stroke was ordered. Patient was complaining of right greater than left upper extremity weakness (although the patient's catalogue illustrator strength was equal). Patient also complaining of double vision and slurred speech. CT was performed on the patient's arrival and was within normal limits. When the patient arrived back to the room he was placed on monitor and his blood pressure showed a systolic blood pressure in the 70s. Patient was immediately started on IV hydration and his blood pressure did improve. Once his blood pressure sigifredo above 100 systolic patient stated that his slurred speech has resolved. Do appreciate some improvement of his speech. Despite having right greater than left sided weakness patient had no pronator drift and no decreased catalogue illustrator strength on the right side. Because of the patient's symptoms on arrival our telemetry neurologist stated that he did meet criteria for TPA but this was held because of the low blood pressure and canceled because the patient symptoms have resolved. Patient's white count was elevated 15. Added sepsis protocol to the patient to see if there was some evidence of infection the patient does have evidence of urinary tract infection which is likely causing the patient's hypotension. Patient to be admitted to the hospitalist service. Did give aspirin since the patient likely did indeed have a TIA but not a full on CVA. Critical Care Time: Yes (30) Critical care attestation.: If time is entered above; I have spent that time in minutes in the direct care of this critically ill patient, excluding procedure time. ED Disposition Clinical Impression: UTI (urinary tract infection), Sepsis, TIA (transient ischemic attack) Disposition: DC-09 OP ADMIT IP TO THIS HOSP Is pt being admited?: Yes Does the pt Need Aspirin: No Condition: Stable Time of Disposition: 22:30
[2021-01-02 21:11] LABS: Albumin 3.7 g/dL (3.9-5); Calcium 9.1 mg/dL (8.4-10.2)
--- NOTE | 2021-01-02 21:17 | XRay Report ---
CHEST 1 VIEW 01/02/2021 8:09 PM INDICATION / CLINICAL INFORMATION: sepsis protocol. COMPARISON: 03/07/2018 FINDINGS: SUPPORT DEVICES: None. HEART / MEDIASTINUM: No significant abnormality. LUNGS / PLEURA: No significant pulmonary or pleural abnormality. No pneumothorax. ADDITIONAL FINDINGS: No significant additional findings. IMPRESSION: 1. No acute findings. Signer Name: Juanjo Andersen MD Signed: 01/02/2021 9:13 PM Workstation Name: [id number]
[2021-01-02 21:28] LABS: Bilirubin,Urine NEG (Negative); Blood,Urine SM (Negative); Color,Urine Yellow (Yellow); Hyaline Casts,Urine 6 /LPF; Mucus,Urine FEW /HPF; Urobilinogen,Urine < 2.0 mg/dL (<2.0)
[2021-01-02] MEDS ORDERED: ASPIRIN 325 MG TAB PO ONE (22:31)
[2021-01-02] MEDS ORDERED: ONDANSETRON 4 MG/2 ML INJ IV PRN ×2 (23:39)
[2021-01-02] MEDS ORDERED: MAGNESIUM HYDROXIDE (MOM) ORAL LIQD UDC PO PRN ×2 (23:39)
[2021-01-02] MEDS ORDERED: ACETAMINOPHEN 325 MG TAB PO PRN ×2 (23:39)
[2021-01-02] MEDS ORDERED: METOCLOPRAMIDE 10 MG TAB PO PRN (23:39)
[2021-01-02] MEDS ORDERED: PROMETHAZINE 25 MG RECT SUPP PR PRN (23:39)
--- NOTE | 2021-01-02 23:47 | Cat Scan Report ---
CTA NECK WITH CONTRAST 01/02/2021 INDICATION / CLINICAL INFORMATION: stroke symptoms. COMPARISON: None. TECHNIQUE: Routine CTA of the neck is performed. 3-D/MIP reformats were postprocessed. Percentage st enosis is determined by direct quantitative measurements of diseased internal carotid artery diameter compared with normal distal internal carotid artery reference segments or by criteria similar to CARLTON CET where applicable. All CT scans at this location are performed using CT dose reduction for ALARA b y means of automated exposure control. CONTRAST: 100 ml of Omnipaque 350 FINDINGS: Carotid bifurcations: Prominent atherosclerotic vascular calcifications and plaque associated with th e carotid bifurcations bilaterally. On the left, there is high-grade stenosis in the range of 70-80%. On the right, there is high-grade stenosis in the range of 90%. Carotid arteries: No significant abnormality. Cervical vertebral arteries: No significant abnormality. Aortic arch: Not well seen due to artifact associated with pacemaker wires None. IMPRESSION: Bilateral high-grade carotid bifurcation stenosis Signer Name: Catracho Robles MD Signed: 01/02/2021 11:43 PM Workstation Name: [id number]
--- NOTE | 2021-01-02 23:51 | Cat Scan Report ---
CTA HEAD ]\WITH CONTRAST HISTORY: Stroke symptoms. Not otherwise specified. COMPARISON: None. TECHNIQUE: All CT scans at this location are performed using CT dose reduction for ALARA by means of automated exposure control.. 3-D/MIP reformats postprocessed. Percentage stenosis is determined by d irect quantitative measurements of diseased internal carotid artery diameter compared with normal dis rosy internal carotid artery reference segments or by criteria similar to NASCET where applicable. CONTRAST: 100 ml of Omnipaque 350 FINDINGS: CTA HEAD: Intracranial vertebral arteries: No significant abnormality. Basilar artery: No significant abnormality. Posterior cerebral arteries: No significant abnormality. Intracranial internal carotid arteries: No significant abnormality. Anterior cerebral arteries: No significant abnormality. Middle cerebral arteries: No significant abnormality. Dural venous sinuses:Not optimally opacified. No significant abnormality. Additional findings: None. IMPRESSION: 1. No significant abnormality. Signer Name: Catracho Robles MD Signed: 01/02/2021 11:47 PM Workstation Name: [id number]
--- NOTE | 2021-01-02 23:57 | History and Physical Report ---
History of Present Illness Date of examination: 01/02/21 Date of admission: 01/02/21 22:11 Chief complaint: Slurred Speech History of present illness: 60-year-old male with past medical history of hypertension presenting to the emergency room today complaining of slurred speech. Slurred speech was said to have lasted about 15 to 20-minute while he was working [employer] at home. He also states that he he had generalized weakness on his right side and on his left. He denies any headache or dizziness, no chest pain or shortness of breath, no fever or chills. No hematuria or dysuria. Denies any frequency of urination. He also complained of double vision. Speech and vision has since improved since arrival in the emergency room. Patient states that he has been having some back pain and also indicates that he has had history of for kidney stones. Upon arrival in the emergency room patient was slightly hypotensive. Blood pressure improved with IV fluid bolus. Work-up in the emergency room today CT scan of the head was unremarkable. Urinalysis reveals a UTI. Chemistry reveals a lactic acidosis. Elevated BUN and creatinine. Patient has been admitted with UTI, dehydration and possible TIA. Past History Past Medical History: arthritis, CAD (H/O [place]), COPD, GERD, hypertension, other (Asthma) Past Surgical History: CABG, Other (Back surgery,Open heart surgery,) Social history: smoking (Current daily smoker,), other (H/O Meth use) Medications and Allergies Allergies Allergy/AdvReac Type Severity Reaction Status Date / Time oxytetracycline Allergy HIVES,RASH Verified 01/02/21 19:11 [From Terramycin] oxytetracycline HCl Allergy HIVES,RASH Verified 07/13/14 11:57 [From Terramycin] Home Medications Medication Instructions Recorded Confirmed Last Taken Type Gabapentin 2 cap PO BID 02/17/17 02/20/17 02/17/17 History lisinopriL [Zestril TAB] 10 mg PO QDAY 02/17/17 02/20/17 02/17/17 History 10 MG Aspirin 325 mg PO QDAY #30 tablet 02/23/17 Unknown Rx Gabapentin 600 mg PO BID #60 capsule 02/23/17 Unknown Rx ISOSORBIDE MONOnitrate [Imdur ER] 60 mg PO QDAY #30 tablet 02/23/17 Unknown Rx oxyCODONE /ACETAMINOPHEN [Percocet 1 tab PO Q6H PRN #30 tablet 02/23/17 Unknown Rx 5/325 mg] AtorvaSTATin [Lipitor] 40 mg PO QHS #30 tablet 03/09/18 Unknown Rx Ranolazine ER [Ranexa ER] 500 mg PO BID #60 tablet 03/09/18 Unknown Rx carvediloL [Coreg] 6.25 mg PO BID #60 tablet 03/09/18 Unknown Rx Active Meds: Active Medications Acetaminophen (Acetaminophen 325 Mg Tab) 650 mg PO Q4H PRN PRN Reason: Pain MILD(1-3)/Fever >100.5/MALIK Aspirin (Aspirin 325 Mg Tab) 325 mg PO QDAY YUDELKA Atorvastatin Calcium (Atorvastatin 40 Mg Tab) 40 mg PO QHS YUDELKA Bisacodyl (Bisacodyl 10 Mg Rect Supp) 10 mg [place] QDAY PRN PRN Reason: Constipation Heparin Sodium (Porcine) (Heparin 5,000 Unit/1 Ml Vial) 5,000 unit SUB-Q Q8HR YUDELKA Sodium Chloride (Nacl 0.9% 1000 Ml) 1,000 mls @ 125 mls/hr IV ONCE ONE Stop: 01/03/21 06:21 Sodium Chloride (Nacl 0.9% 1000 Ml) 1,000 mls @ 125 mls/hr IV DIRECT YUDELKA Ceftriaxone Sodium (Rocephin/Ns 1 Gm/50 Ml) 1 gm in 50 mls @ 100 mls/hr IV Q24H YUDELKA; Protocol Magnesium Hydroxide (Magnesium Hydroxide (Mom) Oral Liqd Udc) 30 ml PO Q4H PRN PRN Reason: Constipation Metoclopramide HCl (Metoclopramide 10 Mg Tab) 10 mg PO Q6H PRN PRN Reason: Nausea And Vomiting Morphine Sulfate (Morphine 2 Mg/1 Ml Inj) 2 mg IV Q4H PRN PRN Reason: Pain, Moderate (4-6) Ondansetron HCl (Ondansetron 4 Mg/2 Ml Inj) 4 mg IV Q8H PRN PRN Reason: Nausea And Vomiting Promethazine HCl (Promethazine 25 Mg Rect Supp) 25 mg [place] Q6H PRN PRN Reason: Nausea And Vomiting Sodium Chloride (Sodium Chloride 0.9% 10 Ml Flush Syringe) 10 ml IV BID YUDELKA Sodium Chloride (Sodium Chloride 0.9% 10 Ml Flush Syringe) 10 ml INJ PRN PRN PRN Reason: LINE FLUSH Review of Systems Constitutional: no fever, no chills Ears, nose, mouth and throat: no nasal congestion, no sore throat Cardiovascular: no chest pain, no palpitations Respiratory: no cough, no shortness of breath Gastrointestinal: no abdominal pain, no nausea, no vomiting, no diarrhea Genitourinary Male: no dysuria, no hematuria, no nocturia Musculoskeletal: no neck pain, no low back pain Integumentary: no rash, no pruritis Neurological: change in speech, double vision, no headaches, no confusion Psychiatric: no anxiety, no depression Exam - Constitutional Vitals: Temp Pulse Resp BP Pulse Ox 97.9 F 77 16 101/46 100 01/02/21 19:14 01/02/21 20:31 01/02/21 21:32 01/02/21 22:15 01/02/21 22:15 General appearance: Present: no acute distress, well-nourished, obese - EENT Eyes: Present: PERRL, EOM intact. Absent: scleral icterus ENT: hearing intact, clear oral mucosa, dentition normal - Neck Neck: Present: supple, normal ROM - Respiratory Respiratory effort: normal Respiratory: bilateral: CTA - Cardiovascular Rhythm: regular Heart Sounds: Present: S1 & S2. Absent: gallop, systolic murmur, diastolic murmur, rub, click - Extremities Extremities: no ischemia, pulses intact, pulses symmetrical, No edema, normal temperature, normal color, Full ROM Peripheral Pulses: within normal limits - Abdominal General gastrointestinal: Present: soft, non-tender, non-distended, normal bowel sounds. Absent: mass - Integumentary Integumentary: Present: clear, warm, dry. Absent: rash - Musculoskeletal Musculoskeletal: strength equal bilaterally - Psychiatric Psychiatric: appropriate mood/affect, intact judgment & insight, memory intact, cooperative - Neurologic Neurologic: CNII-XII intact, no focal deficits, moves all extremities HEART Score - HEART Score Troponin: Troponin T < 0.010 ng/mL (0.00-0.029) 01/02/21 19:36 Results - Labs CBC & Chem 7: 01/03/21 04:48 01/03/21 04:48 Labs: Abnormal lab results 01/02/21 01/02/21 01/02/21 Range/Units 19:36 19:36 19:36 WBC 15.8 H (4.5-11.0) K/mm3 RDW 16.6 H (13.2-15.2) % [place] # (Auto) 1.1 H (0.0-0.8) K/mm3 Seg Neutrophils % 73.2 H (40.0-70.0) % Seg Neutrophils # 11.5 H (1.8-7.7) K/mm3 Sodium 134 L (137-145) mmol/L Carbon Dioxide 18 L (22-30) mmol/L BUN 41 H (9-20) mg/dL Creatinine 1.8 H (0.8-1.3) mg/dL Glucose 134 H (75-100) mg/dL POC Glucose (70-105) mg/dL Lactic Acid (0.7-2.0) mmol/L Total Creatine Kinase 47 L (55-170) units/L Albumin 3.7 L (3.9-5) g/dL Urine WBC (Auto) (0.0-6.0) /HPF 01/02/21 01/02/21 01/02/21 Range/Units 19:43 20:21 21:20 WBC (4.5-11.0) K/mm3 RDW (13.2-15.2) % [place] # (Auto) (0.0-0.8) K/mm3 Seg Neutrophils % (40.0-70.0) % Seg Neutrophils # (1.8-7.7) K/mm3 Sodium (137-145) mmol/L Carbon Dioxide (22-30) mmol/L BUN (9-20) mg/dL Creatinine (0.8-1.3) mg/dL Glucose (75-100) mg/dL POC Glucose 129 H (70-105) mg/dL Lactic Acid 2.50 H* (0.7-2.0) mmol/L Total Creatine Kinase (55-170) units/L Albumin (3.9-5) g/dL Urine WBC (Auto) 158.0 H (0.0-6.0) /HPF Assessment and Plan - Patient Problems (1) TIA (transient ischemic attack) Current Visit: Yes Status: Acute Plan to address problem: Patient placed on daily aspirin. We will schedule patient for MRI, carotid Doppler and echocardiogram. Consult placed to neurology for evaluation. (2) ARF (acute renal failure) Current Visit: Yes Status: Acute Plan to address problem: Possibly prerenal. Will monitor BUN and creatinine and continue IV fluid. Consult placed to nephrology for evaluation. (3) UTI (urinary tract infection) Current Visit: Yes Status: Acute Plan to address problem: Patient placed on empiric IV antibiotics. We will await urine culture results. (4) Dehydration Current Visit: No Status: Acute Plan to address problem: We will continue IV fluid hydration. (5) DVT prophylaxis Current Visit: No Status: Acute Plan to address problem: Patient placed on subcutaneous heparin. (6) Full code status Current Visit: Yes Status: Acute Plan to address problem: Patient is full code.
[2021-01-03] MEDS ORDERED: ZOLPIDEM 5 MG TAB PO PRN (04:58)
[2021-01-03 05:13] LABS: Basophils # (Auto) 0.1 K/mm3 (0.0-0.1); Basophils % (Auto) 0.5 % (0.0-1.8); Eosinophils # (Auto) 0.2 K/mm3 (0.0-0.4); Eosinophils % (Auto) 1.3 % (0.0-4.3); Hematocrit 34.8 % (35.5-45.6); Hemoglobin 11.4 gm/dl (11.8-15.2); Lymphocytes # (Auto) 2.5 K/mm3 (1.2-5.4); Lymphocytes % (Auto) 21.2 % (13.4-35.0); Mean Corpuscular HGB Conc 33 % (32-34); Mean Corpuscular Volume 88 fl (84-94); Monocytes % (Auto) 8.1 % (0.0-7.3); Platelet Count 303 K/mm3 (140-440); Red Blood Count 3.97 M/mm3 (3.65-5.03); Red Cell Distribution Width 16.6 % (13.2-15.2)
[2021-01-03 05:23] LABS: INR 1.03 (0.87-1.13)
[2021-01-03 05:35] LABS: Calcium 7.6 mg/dL (8.4-10.2); Chol/HDL Ratio 5.66 %
[2021-01-03] MEDS: HEPARIN 5,000 UNIT/1 ML VIAL SUB-Q SCH ×3 (06:12→23:31)
--- NOTE | 2021-01-03 09:49 | Progress Note ---
Assessment and Plan Assessment and plan: --Acute CVA/TIA; Patient was evaluated by telemetry neurologist Not a candidate for TPA, Aspirin and statin Neuro work-up in progress,PT OT rehab Neurology consult --Bilateral carotid high-grade stenosis on CTA; Aspirin and statin, vascular consulted For possible carotid endarterectomy --Acute kidney injury; secondary to ATN Gentle hydration, monitor renal function Avoid nephrotoxins, nephrology consult --Urinary tract infection; Empiric antibiotics, follow cultures Supportive care --Dehydration; IV fluids, encourage plenty oral fluids --Obesity; BMI 36.9 Patient needs dietary modification , exercise as tolerated And weight reduction when medically stable --DVT prophylaxis;Heparin renal dose --Full CODE STATUS. We will closely monitor the patient and adjust the management as needed Follow consults evaluations and recommendations Plan of care reviewed with the patient and his nurse Follow neuro work-up Follow PT OT evaluation Possible discharge in 1 to 2 days pending clinical course History Interval history: I have seen and examined the patient at the bedside in [facility]MC[facility] Patient's chart and medications reviewed patient's chart and medications reviewed Admitted with acute CVA, Not a candidate for TPA Patient feels slightly better Symptoms significantly improved Neuro work-up is in progress Vital signs noted Hospitalist Physical - Constitutional Vitals: Temp Pulse Resp BP Pulse Ox 97.9 F 69 13 107/59 99 01/02/21 19:14 01/03/21 07:00 01/03/21 07:00 01/03/21 07:00 01/03/21 07:00 General appearance: Present: no acute distress, well-nourished, obese - EENT Eyes: Present: PERRL, EOM intact - Neck Neck: Present: supple, normal ROM - Respiratory Respiratory effort: normal Respiratory: bilateral: diminished, negative: rales, rhonchi, wheezing - Cardiovascular Rhythm: regular Heart Sounds: Present: S1 & S2 - Extremities Extremities: no ischemia, No edema - Abdominal General gastrointestinal: soft, non-tender, non-distended, normal bowel sounds - Integumentary Integumentary: Present: clear, warm - Psychiatric Psychiatric: appropriate mood/affect, cooperative - Neurologic Neurologic: other (Mild residual weakness) HEART Score - HEART Score Troponin: Troponin T < 0.010 ng/mL (0.00-0.029) 01/02/21 19:36 Results - Labs CBC & Chem 7: 01/03/21 04:48 01/03/21 04:48 Labs: Laboratory Last Values WBC 11.9 K/mm3 (4.5-11.0) H 01/03/21 04:48 RBC 3.97 M/mm3 (3.65-5.03) 01/03/21 04:48 Hgb 11.4 gm/dl (11.8-15.2) L 01/03/21 04:48 Hct 34.8 % (35.5-45.6) L 01/03/21 04:48 MCV 88 fl (84-94) 01/03/21 04:48 MCH 29 pg (28-32) 01/03/21 04:48 MCHC 33 % (32-34) 01/03/21 04:48 RDW 16.6 % (13.2-15.2) H 01/03/21 04:48 Plt Count 303 K/mm3 (140-440) 01/03/21 04:48 Lymph % (Auto) 21.2 % (13.4-35.0) 01/03/21 04:48 Hart % (Auto) 8.1 % (0.0-7.3) H 01/03/21 04:48 Eos % (Auto) 1.3 % (0.0-4.3) 01/03/21 04:48 Baso % (Auto) 0.5 % (0.0-1.8) 01/03/21 04:48 Lymph # (Auto) 2.5 K/mm3 (1.2-5.4) 01/03/21 04:48 Hart # (Auto) 1.0 K/mm3 (0.0-0.8) H 01/03/21 04:48 Eos # (Auto) 0.2 K/mm3 (0.0-0.4) 01/03/21 04:48 Baso # (Auto) 0.1 K/mm3 (0.0-0.1) 01/03/21 04:48 Seg Neutrophils % 68.9 % (40.0-70.0) 01/03/21 04:48 Seg Neutrophils # 8.2 K/mm3 (1.8-7.7) H 01/03/21 04:48 PT 13.3 Sec. (12.2-14.9) 01/03/21 04:48 INR 1.03 (0.87-1.13) 01/03/21 04:48 APTT 28.9 Sec. (24.2-36.6) 01/02/21 19:36 Thrombin Time 16.2 Sec. (15.1-19.6) 01/02/21 19:36 Sodium 138 mmol/L (137-145) 01/03/21 04:48 Potassium 4.7 mmol/L (3.6-5.0) 01/03/21 04:48 Chloride 109.0 mmol/L (98-107) H 01/03/21 04:48 Carbon Dioxide 20 mmol/L (22-30) L 01/03/21 04:48 Anion Gap 14 mmol/L 01/03/21 04:48 BUN 36 mg/dL (9-20) H 01/03/21 04:48 Creatinine 1.6 mg/dL (0.8-1.3) H 01/03/21 04:48 Estimated GFR 44 ml/min 01/03/21 04:48 BUN/Creatinine Ratio 23 % 01/03/21 04:48 Glucose 104 mg/dL (75-100) H 01/03/21 04:48 POC Glucose 129 mg/dL (70-105) H 01/02/21 19:43 Lactic Acid 1.50 mmol/L (0.7-2.0) 01/02/21 22:37 Calcium 7.6 mg/dL (8.4-10.2) L D 01/03/21 04:48 Total Bilirubin 0.40 mg/dL (0.1-1.2) 01/02/21 19:36 AST 13 units/L (5-40) 01/02/21 19:36 ALT 19 units/L (7-56) 01/02/21 19:36 Alkaline Phosphatase 63 units/L (35-129) 01/02/21 19:36 Total Creatine Kinase 47 units/L (55-170) L 01/02/21 19:36 CK-MB (CK-2) 1.2 ng/mL (0.0-4.0) 01/02/21 19:36 CK-MB (CK-2) Rel Index 2.5 (0-4) 01/02/21 19:36 Troponin T < 0.010 ng/mL (0.00-0.029) 01/02/21 19:36 Total Protein 6.9 g/dL (6.3-8.2) 01/02/21 19:36 Albumin 3.7 g/dL (3.9-5) L 01/02/21 19:36 Albumin/Globulin Ratio 1.2 % 01/02/21 19:36 Triglycerides 182 mg/dL (2-149) H 01/03/21 04:48 Cholesterol 136 mg/dL (50-199) 01/03/21 04:48 LDL Cholesterol Direct 95 mg/dL (50-130) 01/03/21 04:48 HDL Cholesterol 24 mg/dL (40-59) L 01/03/21 04:48 Cholesterol/HDL Ratio 5.66 % 01/03/21 04:48 Urine Color Yellow (Yellow) 01/02/21 21:20 Urine Turbidity Slightly-cloudy (Clear) 01/02/21 21:20 Urine pH 5.0 (5.0-7.0) 01/02/21 21:20 Ur Specific [place] 1.008 (1.003-1.030) 01/02/21 21:20 Urine Protein 30 mg/dl mg/dL (Negative) 01/02/21 21:20 Urine Glucose (UA) Neg mg/dL (Negative) 01/02/21 21:20 Urine Ketones Neg mg/dL (Negative) 01/02/21 21:20 Urine Blood Sm (Negative) 01/02/21 21:20 Urine Nitrite Neg (Negative) 01/02/21 21:20 Urine Bilirubin Neg (Negative) 01/02/21 21:20 Urine Urobilinogen < 2.0 mg/dL (<2.0) 01/02/21 21:20 Ur Leukocyte Esterase Lg (Negative) 01/02/21 21:20 Urine WBC (Auto) 158.0 /HPF (0.0-6.0) H 01/02/21 21:20 Urine RBC (Auto) 10.0 /HPF (0.0-6.0) 01/02/21 21:20 Hyaline Casts 6 /LPF 01/02/21 21:20 Urine Mucus Few /HPF 01/02/21 21:20 Urine Yeast (Budding) 1+ /HPF 01/02/21 21:20 Microbiology: Microbiology 01/02/21 20:27 Peripheral/Venous Blood Culture - Preliminary Culture in Progress 01/02/21 20:21 Peripheral/Venous Blood Culture - Preliminary Culture in Progress Active Medications - Current Medications Current Medications: Generic Name Dose Route Start Last Admin Trade Name Freq PRN Reason Stop Dose Admin Acetaminophen 650 mg 01/02/21 23:39 Acetaminophen 325 Mg Tab PO Q4H PRN Pain MILD(1-3)/Fever >100.5/MALIK Aspirin 325 mg 01/03/21 10:00 Aspirin 325 Mg Tab PO QDAY [facility] Atorvastatin Calcium 40 mg 01/03/21 22:00 Atorvastatin 40 Mg Tab PO QHS [facility] Bisacodyl 10 mg 01/02/21 23:39 Bisacodyl 10 Mg Rect Supp IA QDAY PRN Constipation Heparin Sodium (Porcine) 5,000 unit 01/03/21 06:00 01/03/21 06:12 Heparin 5,000 Unit/1 Ml Vial SUB-Q Not Given Q8HR [facility] Sodium Chloride 1,000 mls @ 125 mls/hr 01/02/21 23:45 Nacl 0.9% 1000 Ml IV DIRECT [facility] Ceftriaxone Sodium 1 gm in 50 mls @ 100 mls/hr 01/03/21 10:00 Rocephin/Ns 1 Gm/50 Ml IV Q24HR [facility] Protocol Magnesium Hydroxide 30 ml 01/02/21 23:39 Magnesium Hydroxide (Mom) Oral Liqd Udc PO Q4H PRN Constipation Metoclopramide HCl 5 mg 01/02/21 23:39 Metoclopramide 10 Mg Tab PO Q6H PRN Nausea And Vomiting Morphine Sulfate 2 mg 01/02/21 23:39 Morphine 2 Mg/1 Ml Inj IV Q4H PRN Pain, Moderate (4-6) Ondansetron HCl 4 mg 01/02/21 23:39 Ondansetron 4 Mg/2 Ml Inj IV Q8H PRN Nausea And Vomiting Promethazine HCl 25 mg 01/02/21 23:39 Promethazine 25 Mg Rect Supp [place] Q6H PRN Nausea And Vomiting Sodium Chloride 10 ml 01/03/21 10:00 Sodium Chloride 0.9% 10 Ml Flush Syringe IV BID YUDELKA Sodium Chloride 10 ml 01/02/21 23:39 Sodium Chloride 0.9% 10 Ml Flush Syringe IV PRN PRN LINE FLUSH Zolpidem Tartrate 5 mg 01/03/21 04:58 01/03/21 05:14 Zolpidem 5 Mg Tab PO 5 mg QHS PRN Administration Sleep
--- NOTE | 2021-01-03 12:17 | Magnetic Resonance Report ---
NONENHANCED MR SCAN OF THE BRAIN: INDICATION / CLINICAL INFORMATION: MAIN. Right-sided weakness; loss of vision TECHNIQUE: Multiplanar, multisequence MR images of the brain obtained. COMPARISON: CT scan of the head from 01/02/2021 FINDINGS: BRAIN / INTRACRANIAL CONTENTS: Abnormal MRI scan Isolated punctate areas of subacute ischemia in the left posterior parietal border zone; these ischem ic lesions more than 12 levels old (increased T2 signal intensity) but less than few days old (low AD C). No acute/subacute ischemia in other internal and external border zones Deep hemispheric white matter lesions ([place] 1) probably due to chronic small vessel disease Brainstem and cerebellar hemispheres are normal CRANIOCERVICAL JUNCTION: No significant abnormality. VASCULAR FLOW-VOIDS: Normal flow signal in the carotid arteries at the level of carotid siphon, left vertebral artery and basilar artery; unable to confirm normal flow signal in the right vertebral lucia ry ORBITS: No significant abnormality of visualized orbits. SINUSES / MASTOIDS: No significant abnormality of visualized sinuses and mastoid air cells. ADDITIONAL FINDINGS: None. IMPRESSION Nonhemorrhagic subacute punctate areas of external border zone ischemia in the left posterior parieta l region; left occipital pole normal Signer Name: Evans Little MD Signed: 01/03/2021 12:13 PM Workstation Name: [email or web address]
[2021-01-03] MEDS: ASPIRIN 325 MG TAB PO SCH (12:21)
[2021-01-03] MEDS: cefTRIAXone/NS 1 GM/50 ML 1 GM/50 ML BAG IV SCH (12:22)
--- NOTE | 2021-01-03 13:26 | Vascular Lab Report ---
DUPLEX DOPPLER ULTRASOUND CAROTID, BILATERAL INDICATION / CLINICAL INFORMATION: stroke. COMPARISON: None available. FINDINGS: RIGHT CAROTID: Moderate to large calcified plaque - PLAQUE ESTIMATE (%): > 50% - CCA velocity: 220 cm/sec. - ICA peak systolic velocity: 169 cm/sec. - ICA/CCA PSV Ratio: 1.15 Right Vertebral Artery: Antegrade flow. LEFT CAROTID: Moderate to large calcified plaque. Reversed flow left external carotid artery - PLAQUE ESTIMATE: > 50% - CCA velocity: 314 cm/sec. - ICA peak systolic velocity: 83 cm/sec. - ICA/CCA PSV Ratio: 2.61 Left Vertebral Artery: Antegrade flow. IMPRESSION: 1. Right Internal Carotid Artery: 50-69% diameter stenosis. 2. Left common Carotid Artery: >70% diameter stenosis but less than total occlusion 3. Technically difficult study. Velocity criteria are extrapolated from diameter data as defined by the Society of Radiologists in Ul trasound Consensus Conference, Radiology 2003; 229;340-346. NO STENOSIS (NORMAL) * Plaque = none; ICA PSV < 125 cm/sec; ICA/CCA PSV Ratio < 2.0 <50% STENOSIS * Plaque < 50%; ICA PSV < 125 cm/sec; ICA/CCA PSV Ratio < 2.0 50-69% STENOSIS * Plaque > 50%; ICA PSV = 125-230 cm/sec; ICA/CCA PSV Ratio = 2.0-4.0 >70% BUT <100% STENOSIS * Plaque > 50%; ICA PSV > 230 cm/sec; ICA/CCA PSV Ratio > 4.0 NEAR OCCLUSION * Plaque = visible lumen; ICA PSV = high/low/none; ICA/CCA PSV Ratio = variable TOTAL OCCLUSION * Plaque = no lumen; ICA PSV = none; ICA/CCA PSV Ratio = N/A Signer Name: Cristian Guerin MD Signed: 01/03/2021 1:21 PM Workstation Name: [id number]
--- NOTE | 2021-01-03 13:53 | Consultation ---
History of Present Illness - Reason for Consult Consult date: 01/03/21 Carotid stenosis - History of Present Illness Patient with a history of a 15 to 20-minute episode of slurred speech which p rompted presentation to the emergency department. He was subsequently found to have systolic blood pressure in the 70s which responded appropriately to fluid. 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 Laguna of [facility]. He states that he has had several episodes like this on previous occasions over the past several months which resolved spontaneously. Past History Past Medical History: arthritis, CAD (H/O [place]), COPD, GERD, hypertension, other (Asthma) Past Surgical History: CABG, Other (Back surgery,Open heart surgery,) Social history: smoking (Current daily smoker,), other (H/O Meth use) Medications and Allergies Allergies Allergy/AdvReac Type Severity Reaction Status Date / Time oxytetracycline Allergy HIVES,RASH Verified 01/02/21 19:11 [From Terramycin] oxytetracycline HCl Allergy HIVES,RASH Verified 07/13/14 11:57 [From Terramycin] Home Medications Medication Instructions Recorded Confirmed Last Taken Type Gabapentin 2 cap PO BID 02/17/17 02/20/17 02/17/17 History lisinopriL [Zestril TAB] 10 mg PO QDAY 02/17/17 02/20/17 02/17/17 History 10 MG Aspirin 325 mg PO QDAY #30 tablet 02/23/17 Unknown Rx Gabapentin 600 mg PO BID #60 capsule 02/23/17 Unknown Rx ISOSORBIDE MONOnitrate [Imdur ER] 60 mg PO QDAY #30 tablet 02/23/17 Unknown Rx oxyCODONE /ACETAMINOPHEN [Percocet 1 tab PO Q6H PRN #30 tablet 02/23/17 Unknown Rx 5/325 mg] AtorvaSTATin [Lipitor] 40 mg PO QHS #30 tablet 03/09/18 Unknown Rx Ranolazine ER [Ranexa ER] 500 mg PO BID #60 tablet 03/09/18 Unknown Rx carvediloL [Coreg] 6.25 mg PO BID #60 tablet 03/09/18 Unknown Rx Active Meds: Active Medications Acetaminophen (Acetaminophen 325 Mg Tab) 650 mg PO Q4H PRN PRN Reason: Pain MILD(1-3)/Fever >100.5/MALIK Aspirin (Aspirin 325 Mg Tab) 325 mg PO QDAY [facility] Last Admin: 01/03/21 12:21 Dose: 325 mg Documented by: Atorvastatin Calcium (Atorvastatin 40 Mg Tab) 40 mg PO QHS [facility] Bisacodyl (Bisacodyl 10 Mg Rect Supp) 10 mg VT QDAY PRN PRN Reason: Constipation Heparin Sodium (Porcine) (Heparin 5,000 Unit/1 Ml Vial) 5,000 unit SUB-Q Q8HR [facility] Last Admin: 01/03/21 06:12 Dose: Not Given Documented by: Sodium Chloride (Nacl 0.9% 1000 Ml) 1,000 mls @ 125 mls/hr IV DIRECT [facility] Ceftriaxone Sodium (Rocephin/Ns 1 Gm/50 Ml) 1 gm in 50 mls @ 100 mls/hr IV Q24HR [facility]; Protocol Last Admin: 01/03/21 12:22 Dose: 100 mls/hr Documented by: Magnesium Hydroxide (Magnesium Hydroxide (Mom) Oral Liqd Udc) 30 ml PO Q4H PRN PRN Reason: Constipation Metoclopramide HCl (Metoclopramide 10 Mg Tab) 5 mg PO Q6H PRN PRN Reason: Nausea And Vomiting Morphine Sulfate (Morphine 2 Mg/1 Ml Inj) 2 mg IV Q4H PRN PRN Reason: Pain, Moderate (4-6) Ondansetron HCl (Ondansetron 4 Mg/2 Ml Inj) 4 mg IV Q8H PRN PRN Reason: Nausea And Vomiting Promethazine HCl (Promethazine 25 Mg Rect Supp) 25 mg VT Q6H PRN PRN Reason: Nausea And Vomiting Sodium Chloride (Sodium Chloride 0.9% 10 Ml Flush Syringe) 10 ml IV BID [facility] Last Admin: 01/03/21 12:22 Dose: 10 ml Documented by: Sodium Chloride (Sodium Chloride 0.9% 10 Ml Flush Syringe) 10 ml IV PRN PRN PRN Reason: LINE FLUSH Zolpidem Tartrate (Zolpidem 5 Mg Tab) 5 mg PO QHS PRN PRN Reason: Sleep Last Admin: 01/03/21 05:14 Dose: 5 mg Documented by: Review of Systems All systems: negative Exam - Constitutional Vitals: Temp Pulse Resp BP Pulse Ox 97.9 F 69 13 107/59 99 01/02/21 19:14 01/03/21 07:00 01/03/21 07:00 01/03/21 07:00 01/03/21 07:00 General appearance: Present: no acute distress - EENT Eyes: Present: EOM intact ENT: hearing intact - Neck Neck: Present: supple, normal ROM - Respiratory Respiratory effort: normal - Abdominal General gastrointestinal: Present: deferred Male genitourinary: Present: deferred - Rectal Rectal Exam: deferred - Psychiatric Psychiatric: appropriate mood/affect, cooperative - Neurologic Neurologic: no focal deficits Results - Labs CBC & Chem 7: 01/03/21 04:48 01/03/21 04:48 Labs: Abnormal lab results 01/02/21 01/02/21 01/02/21 Range/Units 19:36 19:36 19:36 WBC 15.8 H (4.5-11.0) K/mm3 Hgb (11.8-15.2) gm/dl Hct (35.5-45.6) % RDW 16.6 H (13.2-15.2) % [place] % (Auto) (0.0-7.3) % [place] # (Auto) 1.1 H (0.0-0.8) K/mm3 Seg Neutrophils % 73.2 H (40.0-70.0) % Seg Neutrophils # 11.5 H (1.8-7.7) K/mm3 Sodium 134 L (137-145) mmol/L Chloride (98-107) mmol/L Carbon Dioxide 18 L (22-30) mmol/L BUN 41 H (9-20) mg/dL Creatinine 1.8 H (0.8-1.3) mg/dL Glucose 134 H (75-100) mg/dL POC Glucose (70-105) mg/dL Lactic Acid (0.7-2.0) mmol/L Calcium (8.4-10.2) mg/dL Total Creatine Kinase 47 L (55-170) units/L Albumin 3.7 L (3.9-5) g/dL Triglycerides (2-149) mg/dL HDL Cholesterol (40-59) mg/dL Urine WBC (Auto) (0.0-6.0) /HPF 01/02/21 01/02/21 01/02/21 Range/Units 19:43 20:21 21:20 WBC (4.5-11.0) K/mm3 Hgb (11.8-15.2) gm/dl Hct (35.5-45.6) % RDW (13.2-15.2) % [place] % (Auto) (0.0-7.3) % [place] # (Auto) (0.0-0.8) K/mm3 Seg Neutrophils % (40.0-70.0) % Seg Neutrophils # (1.8-7.7) K/mm3 Sodium (137-145) mmol/L Chloride (98-107) mmol/L Carbon Dioxide (22-30) mmol/L BUN (9-20) mg/dL Creatinine (0.8-1.3) mg/dL Glucose (75-100) mg/dL POC Glucose 129 H (70-105) mg/dL Lactic Acid 2.50 H* (0.7-2.0) mmol/L Calcium (8.4-10.2) mg/dL Total Creatine Kinase (55-170) units/L Albumin (3.9-5) g/dL Triglycerides (2-149) mg/dL HDL Cholesterol (40-59) mg/dL Urine WBC (Auto) 158.0 H (0.0-6.0) /HPF 01/03/21 01/03/21 Range/Units 04:48 04:48 WBC 11.9 H (4.5-11.0) K/mm3 Hgb 11.4 L (11.8-15.2) gm/dl Hct 34.8 L (35.5-45.6) % RDW 16.6 H (13.2-15.2) % [place] % (Auto) 8.1 H (0.0-7.3) % [place] # (Auto) 1.0 H (0.0-0.8) K/mm3 Seg Neutrophils % (40.0-70.0) % Seg Neutrophils # 8.2 H (1.8-7.7) K/mm3 Sodium (137-145) mmol/L Chloride 109.0 H (98-107) mmol/L Carbon Dioxide 20 L (22-30) mmol/L BUN 36 H (9-20) mg/dL Creatinine 1.6 H (0.8-1.3) mg/dL Glucose 104 H (75-100) mg/dL POC Glucose (70-105) mg/dL Lactic Acid (0.7-2.0) mmol/L Calcium 7.6 L D (8.4-10.2) mg/dL Total Creatine Kinase (55-170) units/L Albumin (3.9-5) g/dL Triglycerides 182 H (2-149) mg/dL HDL Cholesterol 24 L (40-59) mg/dL Urine WBC (Auto) (0.0-6.0) /HPF Assessment and Plan Patient's presenting symptoms have resolved following normalization of his blood pressure. He did undergo a stroke work-up which included a carotid CTA which demonstrates 80 to 90% stenosis in the carotid bulbs bilaterally. The patient has a short thick neck and there is a medial course to bilateral carotids placing the carotid bulbs in the retropharyngeal space behind the esophagus. At this time, would recommend the patient be medically managed on antiplatelet therapy, statin and control of his blood pressure. He may need reevaluation with his chief catalyst operator during this hospitalization to maintain adequate blood pressure to present additional episodes. He can follow-up in our office in 2 weeks to discuss the timing of carotid interventions. Would not plan on any carotid interventions on this admission.
--- NOTE | 2021-01-03 15:57 | History and Physical Report ---
History of Present Illness Date of examination: 01/03/21 Date of admission: 01/02/21 22:11 Chief complaint: TIA History of present illness: This is a 60-year-old man with history of hypertension who presented with slurred speech and bilateral upper extremity weakness that resolved after 20 minutes. Patient was subsequently admitted for further workup and nephrology was consulted for acute kidney injury. Patient denies headaches, chest pain, shortness of breath, leg swelling, dysuria and hematuria. He denies personal or family history of kidney disease. He d enies NSAID use. Past History Past Medical History: arthritis, CAD (H/O [place]), COPD, GERD, hypertension, other (Asthma) Past Surgical History: CABG, Other (Back surgery,Open heart surgery,) Social history: smoking (Current daily smoker,), other (H/O Meth use) Medications and Allergies Allergies Allergy/AdvReac Type Severity Reaction Status Date / Time oxytetracycline Allergy HIVES,RASH Verified 01/02/21 19:11 [From Terramycin] oxytetracycline HCl Allergy HIVES,RASH Verified 07/13/14 11:57 [From Terramycin] Home Medications Medication Instructions Recorded Confirmed Last Taken Type Gabapentin 2 cap PO BID 02/17/17 02/20/17 02/17/17 History lisinopriL [Zestril TAB] 10 mg PO QDAY 02/17/17 02/20/17 02/17/17 History 10 MG Aspirin 325 mg PO QDAY #30 tablet 02/23/17 Unknown Rx Gabapentin 600 mg PO BID #60 capsule 02/23/17 Unknown Rx ISOSORBIDE MONOnitrate [Imdur ER] 60 mg PO QDAY #30 tablet 02/23/17 Unknown Rx oxyCODONE /ACETAMINOPHEN [Percocet 1 tab PO Q6H PRN #30 tablet 02/23/17 Unknown Rx 5/325 mg] AtorvaSTATin [Lipitor] 40 mg PO QHS #30 tablet 03/09/18 Unknown Rx Ranolazine ER [Ranexa ER] 500 mg PO BID #60 tablet 03/09/18 Unknown Rx carvediloL [Coreg] 6.25 mg PO BID #60 tablet 03/09/18 Unknown Rx Active Meds: Active Medications Acetaminophen (Acetaminophen 325 Mg Tab) 650 mg PO Q4H PRN PRN Reason: Pain MILD(1-3)/Fever >100.5/MALIK Aspirin (Aspirin 325 Mg Tab) 325 mg PO QDAY [facility] Last Admin: 01/03/21 12:21 Dose: 325 mg Documented by: Atorvastatin Calcium (Atorvastatin 40 Mg Tab) 40 mg PO QHS [facility] Bisacodyl (Bisacodyl 10 Mg Rect Supp) 10 mg OR QDAY PRN PRN Reason: Constipation Heparin Sodium (Porcine) (Heparin 5,000 Unit/1 Ml Vial) 5,000 unit SUB-Q Q8HR [facility] Last Admin: 01/03/21 14:20 Dose: 5,000 unit Documented by: Sodium Chloride (Nacl 0.9% 1000 Ml) 1,000 mls @ 125 mls/hr IV DIRECT [facility] Ceftriaxone Sodium (Rocephin/Ns 1 Gm/50 Ml) 1 gm in 50 mls @ 100 mls/hr IV Q24HR [facility]; Protocol Last Admin: 01/03/21 12:22 Dose: 100 mls/hr Documented by: Magnesium Hydroxide (Magnesium Hydroxide (Mom) Oral Liqd Udc) 30 ml PO Q4H PRN PRN Reason: Constipation Metoclopramide HCl (Metoclopramide 10 Mg Tab) 5 mg PO Q6H PRN PRN Reason: Nausea And Vomiting Morphine Sulfate (Morphine 2 Mg/1 Ml Inj) 2 mg IV Q4H PRN PRN Reason: Pain, Moderate (4-6) Ondansetron HCl (Ondansetron 4 Mg/2 Ml Inj) 4 mg IV Q8H PRN PRN Reason: Nausea And Vomiting Promethazine HCl (Promethazine 25 Mg Rect Supp) 25 mg OR Q6H PRN PRN Reason: Nausea And Vomiting Sodium Chloride (Sodium Chloride 0.9% 10 Ml Flush Syringe) 10 ml IV BID [facility] Last Admin: 01/03/21 12:22 Dose: 10 ml Documented by: Sodium Chloride (Sodium Chloride 0.9% 10 Ml Flush Syringe) 10 ml IV PRN PRN PRN Reason: LINE FLUSH Zolpidem Tartrate (Zolpidem 5 Mg Tab) 5 mg PO QHS PRN PRN Reason: Sleep Last Admin: 01/03/21 05:14 Dose: 5 mg Documented by: Review of Systems Constitutional: no fever, no chills Ears, nose, mouth and throat: no nasal congestion, no nasal discharge Cardiovascular: no chest pain, no palpitations Respiratory: no shortness of breath, no dyspnea on exertion Gastrointestinal: no nausea, no vomiting, no diarrhea Genitourinary Male: no dysuria, no hematuria Musculoskeletal: no muscle weakness, no muscle cramps Integumentary: no rash, no redness Neurological: weakness, change in speech, no aphasia Psychiatric: no disorientation, no hallucinations Endocrine: no polydipsia, no polyuria Exam - Vital Signs Vital signs: Vital Signs Temp Pulse Resp BP Pulse Ox 97.9 F 88 18 83/52 98 01/02/21 19:14 01/02/21 19:14 01/02/21 19:14 01/02/21 19:14 01/02/21 19:14 - Physical Exam Narrative exam: General: No acute distress Neck: Supple, no JVD Chest: Clear to auscultation bilaterally Heart: RRR, S1 and S2, no pericardial rub Abdomen: Soft, nontender, no renal bruit Extremity: No peripheral cyanosis, edema Neurological: Alert, awake, no asterixis Dermatology: No skin rash Psych: No agitation Musculoskeletal: No joint effusion Results - Lab Results 01/03/21 04:48 01/03/21 04:48 Most recent lab results Calcium 7.6 mg/dL (8.4-10.2) L D 01/03/21 04:48 Assessment and Plan Assessment Acute kidney injury Hyponatremia, mild Acidosis Hypocalcemia Pyuria Reported h/o stones Recommendations Check renal ultrasound Check urine culture Check ionized calcium, vitamin D and PTH Continue IVF Start sodium bicarb tabs Renally dose medications Avoid nephrotoxins Keep MAP more than 65
[2021-01-03] MEDS: SODIUM CHLORIDE 0.9% 1000 ML 1,000 ML IV SCH (23:39)
[2021-01-04] MEDS: HEPARIN 5,000 UNIT/1 ML VIAL SUB-Q SCH ×3 (05:44→22:47)
--- NOTE | 2021-01-04 08:26 | Consultation ---
History of Present Illness Consult date: 01/04/21 Reason for Consult: CVA Chief complaint: Slurred Speech History of present illness: 60 yo male with cadx, htn, copd, cabg, spinal surgery, tobacco abuse, who presents with transient dysarthria in the setting of a SBP in the 70s. With correction of the blood pressure, the dysarthria improved. CTA Neck / CUS reveals bilateral (L>R) carotid bifurcation stenoses and MRI Brain reveals a borderzone infarct involving the left hemisphere. Past History Past Medical History: arthritis, CAD (H/O [place]), COPD, GERD, hypertension, other (Asthma) Past Surgical History: CABG, Other (Back surgery,Open heart surgery,) Social history: smoking (Current daily smoker,), other (H/O Meth use) Medications and Allergies Allergies Allergy/AdvReac Type Severity Reaction Status Date / Time oxytetracycline Allergy HIVES,RASH Verified 01/02/21 19:11 [From Terramycin] oxytetracycline HCl Allergy HIVES,RASH Verified 07/13/14 11:57 [From Terramycin] Home Medications Medication Instructions Recorded Confirmed Last Taken Type Gabapentin 2 cap PO BID 02/17/17 02/20/17 02/17/17 History lisinopriL [Zestril TAB] 10 mg PO QDAY 02/17/17 02/20/17 02/17/17 History 10 MG Aspirin 325 mg PO QDAY #30 tablet 02/23/17 Unknown Rx Gabapentin 600 mg PO BID #60 capsule 02/23/17 Unknown Rx ISOSORBIDE MONOnitrate [Imdur ER] 60 mg PO QDAY #30 tablet 02/23/17 Unknown Rx oxyCODONE /ACETAMINOPHEN [Percocet 1 tab PO Q6H PRN #30 tablet 02/23/17 Unknown Rx 5/325 mg] AtorvaSTATin [Lipitor] 40 mg PO QHS #30 tablet 03/09/18 Unknown Rx Ranolazine ER [Ranexa ER] 500 mg PO BID #60 tablet 03/09/18 Unknown Rx carvediloL [Coreg] 6.25 mg PO BID #60 tablet 03/09/18 Unknown Rx Active Meds: Active Medications Acetaminophen (Acetaminophen 325 Mg Tab) 650 mg PO Q4H PRN PRN Reason: Pain MILD(1-3)/Fever >100.5/MALIK Last Admin: 01/03/21 23:30 Dose: 650 mg Documented by: Aspirin (Aspirin 325 Mg Tab) 325 mg PO QDAY [facility] Last Admin: 01/03/21 12:21 Dose: 325 mg Documented by: Atorvastatin Calcium (Atorvastatin 40 Mg Tab) 40 mg PO QHS [facility] Last Admin: 01/03/21 23:30 Dose: 40 mg Documented by: Bisacodyl (Bisacodyl 10 Mg Rect Supp) 10 mg IN QDAY PRN PRN Reason: Constipation Heparin Sodium (Porcine) (Heparin 5,000 Unit/1 Ml Vial) 5,000 unit SUB-Q Q8HR [facility] Last Admin: 01/04/21 05:44 Dose: 5,000 unit Documented by: Sodium Chloride (Nacl 0.9% 1000 Ml) 1,000 mls @ 125 mls/hr IV DIRECT [facility] Last Admin: 01/03/21 23:39 Dose: 125 mls/hr Documented by: Ceftriaxone Sodium (Rocephin/Ns 1 Gm/50 Ml) 1 gm in 50 mls @ 100 mls/hr IV Q24HR [facility]; Protocol Last Admin: 01/03/21 12:22 Dose: 100 mls/hr Documented by: Magnesium Hydroxide (Magnesium Hydroxide (Mom) Oral Liqd Udc) 30 ml PO Q4H PRN PRN Reason: Constipation Metoclopramide HCl (Metoclopramide 10 Mg Tab) 5 mg PO Q6H PRN PRN Reason: Nausea And Vomiting Morphine Sulfate (Morphine 2 Mg/1 Ml Inj) 2 mg IV Q4H PRN PRN Reason: Pain, Moderate (4-6) Ondansetron HCl (Ondansetron 4 Mg/2 Ml Inj) 4 mg IV Q8H PRN PRN Reason: Nausea And Vomiting Promethazine HCl (Promethazine 25 Mg Rect Supp) 25 mg IN Q6H PRN PRN Reason: Nausea And Vomiting Sodium Chloride (Sodium Chloride 0.9% 10 Ml Flush Syringe) 10 ml IV BID [facility] Last Admin: 01/03/21 23:32 Dose: 10 ml Documented by: Sodium Chloride (Sodium Chloride 0.9% 10 Ml Flush Syringe) 10 ml IV PRN PRN PRN Reason: LINE FLUSH Zolpidem Tartrate (Zolpidem 5 Mg Tab) 5 mg PO QHS PRN PRN Reason: Sleep Last Admin: 01/03/21 05:14 Dose: 5 mg Documented by: Review of Systems All systems: negative (as per HPI;) Physical Examination - Vital Signs Vital Signs: Vital Signs Temp Pulse Resp BP Pulse Ox 97.9 F 88 18 83/52 98 01/02/21 19:14 01/02/21 19:14 01/02/21 19:14 01/02/21 19:14 01/02/21 19:14 - Physical Exam Narrative exam: Televideo is not available at present. Results - Laboratory Findings CBC and BMP: 01/03/21 04:48 01/03/21 04:48 Abnormal Lab Findings: Abnormal Labs 01/02/21 01/02/21 01/02/21 19:36 19:36 19:36 WBC 15.8 H Hgb Hct RDW 16.6 H [place] % (Auto) [place] # (Auto) 1.1 H Seg Neutrophils % 73.2 H Seg Neutrophils # 11.5 H Sodium 134 L Chloride Carbon Dioxide 18 L BUN 41 H Creatinine 1.8 H Glucose 134 H POC Glucose Lactic Acid Calcium Total Creatine Kinase 47 L Albumin 3.7 L Triglycerides HDL Cholesterol Urine WBC (Auto) 01/02/21 01/02/21 01/02/21 19:43 20:21 21:20 WBC Hgb Hct RDW [place] % (Auto) [place] # (Auto) Seg Neutrophils % Seg Neutrophils # Sodium Chloride Carbon Dioxide BUN Creatinine Glucose POC Glucose 129 H Lactic Acid 2.50 H* Calcium Total Creatine Kinase Albumin Triglycerides HDL Cholesterol Urine WBC (Auto) 158.0 H 01/03/21 01/03/21 01/03/21 04:48 04:48 21:17 WBC 11.9 H Hgb 11.4 L Hct 34.8 L RDW 16.6 H [place] % (Auto) 8.1 H [place] # (Auto) 1.0 H Seg Neutrophils % Seg Neutrophils # 8.2 H Sodium Chloride 109.0 H Carbon Dioxide 20 L BUN 36 H Creatinine 1.6 H Glucose 104 H POC Glucose 118 H Lactic Acid Calcium 7.6 L D Total Creatine Kinase Albumin Triglycerides 182 H HDL Cholesterol 24 L Urine WBC (Auto) Assessment and Plan 60 yo male with cadx, htn, copd, cabg, spinal surgery, tobacco abuse, who presents with transient dysarthria in the setting of a SBP in the 70s with noted L>R carotid stenosis w/ a a borderzone infarct involving the left hemisphere. 1. 1. Acute Ischemic Watershed Stroke: ASA 325 mg PO qday, Plavix 75 mg PO qday (until seen by Stroke Neurology); TTE, confirm LDL/TSH, telemetry, SBP goal 160-200 mmHg and DBP 80-100 mmHg for 24 more hours. Statin therapy for a goal LDL of 70, when patient passes swallow evaluation. ST/Swallow evaluation. Long- term risk-factor modification, including a strict diet/exercise regimen for secondary stroke prophylaxis. 2. Hypertension - goal SBP 140-200 mmHg and DBP 70-100 mmHg for 24 more hours. 3. Bilateral Carotid Stenosis - symptomatic left carotid stenosis; will need intervention s/p cardiac clearance; per vascular surgery; right carotid stenosis is currently asymptomatic but will need close followup and maximal medical therapy. 4. Followup with Stroke Neurology in 2-4 weeks. Willam Villeda MD Neurology
--- NOTE | 2021-01-04 10:38 | Progress Note ---
Assessment and Plan Assessment and plan: --Acute CVA: Patient was evaluated by telemetry neurologist Not a candidate for TPA, Aspirin and statin Neuro work-up in progress,PT OT rehab Neurology following --Bilateral carotid high-grade stenosis on CTA; Aspirin and statin, vascular evaluated the patient For possible carotid endarterectomy Recommend cardiology consult --History of coronary artery disease/CABG Continue current cardiac medications Cardiology consult as needed --Acute kidney injury; secondary to ATN Gentle hydration, monitor renal function Avoid nephrotoxins, Resolved, creatinine in the normal range --Urinary tract infection; Empiric antibiotics, follow cultures Supportive care --Dehydration; IV fluids, encourage plenty oral fluids --Obesity; BMI 36.9 Patient needs dietary modification , exercise as tolerated And weight reduction when medically stable --DVT prophylaxis;Heparin renal dose --Full CODE STATUS. Plan of care reviewed with the patient and his nurse Follow neuro work-up Follow PT OT evaluation We will closely monitor the patient and adjust the management as needed Follow consults evaluations and recommendations History Interval history: I have seen and examined the patient at the bedside Patient's chart and medications reviewed Patient feels slightly better Tolerated physical therapy Blood pressures in the lower range Antihypertensives held Vital signs noted Hospitalist Physical - Constitutional Vitals: Temp Pulse Resp BP Pulse Ox 98.9 F 67 16 129/61 96 01/04/21 03:50 01/04/21 03:50 01/04/21 03:50 01/04/21 03:50 01/04/21 06:03 General appearance: Present: no acute distress, well-nourished, obese - EENT Eyes: Present: PERRL, EOM intact - Neck Neck: Present: supple, normal ROM - Respiratory Respiratory effort: normal Respiratory: bilateral: diminished, negative: rales, rhonchi, wheezing - Cardiovascular Rhythm: regular Heart Sounds: Present: S1 & S2 - Extremities Extremities: no ischemia, No edema - Abdominal General gastrointestinal: soft, non-tender, non-distended, normal bowel sounds - Integumentary Integumentary: Present: clear, warm - Psychiatric Psychiatric: appropriate mood/affect, cooperative - Neurologic Neurologic: moves all extremities HEART Score - HEART Score Troponin: Troponin T < 0.010 ng/mL (0.00-0.029) 01/02/21 19:36 Results - Labs CBC & Chem 7: 01/03/21 04:48 01/04/21 11:30 Labs: Laboratory Last Values WBC 11.9 K/mm3 (4.5-11.0) H 01/03/21 04:48 RBC 3.97 M/mm3 (3.65-5.03) 01/03/21 04:48 Hgb 11.4 gm/dl (11.8-15.2) L 01/03/21 04:48 Hct 34.8 % (35.5-45.6) L 01/03/21 04:48 MCV 88 fl (84-94) 01/03/21 04:48 MCH 29 pg (28-32) 01/03/21 04:48 MCHC 33 % (32-34) 01/03/21 04:48 RDW 16.6 % (13.2-15.2) H 01/03/21 04:48 Plt Count 303 K/mm3 (140-440) 01/03/21 04:48 Lymph % (Auto) 21.2 % (13.4-35.0) 01/03/21 04:48 [place] % (Auto) 8.1 % (0.0-7.3) H 01/03/21 04:48 Eos % (Auto) 1.3 % (0.0-4.3) 01/03/21 04:48 Baso % (Auto) 0.5 % (0.0-1.8) 01/03/21 04:48 Lymph # (Auto) 2.5 K/mm3 (1.2-5.4) 01/03/21 04:48 [place] # (Auto) 1.0 K/mm3 (0.0-0.8) H 01/03/21 04:48 Eos # (Auto) 0.2 K/mm3 (0.0-0.4) 01/03/21 04:48 Baso # (Auto) 0.1 K/mm3 (0.0-0.1) 01/03/21 04:48 Seg Neutrophils % 68.9 % (40.0-70.0) 01/03/21 04:48 Seg Neutrophils # 8.2 K/mm3 (1.8-7.7) H 01/03/21 04:48 PT 13.3 Sec. (12.2-14.9) 01/03/21 04:48 INR 1.03 (0.87-1.13) 01/03/21 04:48 APTT 28.9 Sec. (24.2-36.6) 01/02/21 19:36 Thrombin Time 16.2 Sec. (15.1-19.6) 01/02/21 19:36 Sodium 138 mmol/L (137-145) 01/03/21 04:48 Potassium 4.7 mmol/L (3.6-5.0) 01/03/21 04:48 Chloride 109.0 mmol/L (98-107) H 01/03/21 04:48 Carbon Dioxide 20 mmol/L (22-30) L 01/03/21 04:48 Anion Gap 14 mmol/L 01/03/21 04:48 BUN 36 mg/dL (9-20) H 01/03/21 04:48 Creatinine 1.6 mg/dL (0.8-1.3) H 01/03/21 04:48 Estimated GFR 44 ml/min 01/03/21 04:48 BUN/Creatinine Ratio 23 % 01/03/21 04:48 Glucose 104 mg/dL (75-100) H 01/03/21 04:48 POC Glucose 118 mg/dL (70-105) H 01/03/21 21:17 Lactic Acid 1.50 mmol/L (0.7-2.0) 01/02/21 22:37 Calcium 7.6 mg/dL (8.4-10.2) L D 01/03/21 04:48 Total Bilirubin 0.40 mg/dL (0.1-1.2) 01/02/21 19:36 AST 13 units/L (5-40) 01/02/21 19:36 ALT 19 units/L (7-56) 01/02/21 19:36 Alkaline Phosphatase 63 units/L (35-129) 01/02/21 19:36 Total Creatine Kinase 47 units/L (55-170) L 01/02/21 19:36 CK-MB (CK-2) 1.2 ng/mL (0.0-4.0) 01/02/21 19:36 CK-MB (CK-2) Rel Index 2.5 (0-4) 01/02/21 19:36 Troponin T < 0.010 ng/mL (0.00-0.029) 01/02/21 19:36 Total Protein 6.9 g/dL (6.3-8.2) 01/02/21 19:36 Albumin 3.7 g/dL (3.9-5) L 01/02/21 19:36 Albumin/Globulin Ratio 1.2 % 01/02/21 19:36 Triglycerides 182 mg/dL (2-149) H 01/03/21 04:48 Cholesterol 136 mg/dL (50-199) 01/03/21 04:48 LDL Cholesterol Direct 95 mg/dL (50-130) 01/03/21 04:48 HDL Cholesterol 24 mg/dL (40-59) L 01/03/21 04:48 Cholesterol/HDL Ratio 5.66 % 01/03/21 04:48 PTH Intact 52.97 pg/mL (15-65) 01/03/21 19:04 Urine Color Yellow (Yellow) 01/02/21 21:20 Urine Turbidity Slightly-cloudy (Clear) 01/02/21 21:20 Urine pH 5.0 (5.0-7.0) 01/02/21 21:20 Ur Specific [place] 1.008 (1.003-1.030) 01/02/21 21:20 Urine Protein 30 mg/dl mg/dL (Negative) 01/02/21 21:20 Urine Glucose (UA) Neg mg/dL (Negative) 01/02/21 21:20 Urine Ketones Neg mg/dL (Negative) 01/02/21 21:20 Urine Blood Sm (Negative) 01/02/21 21:20 Urine Nitrite Neg (Negative) 01/02/21 21:20 Urine Bilirubin Neg (Negative) 01/02/21 21:20 Urine Urobilinogen < 2.0 mg/dL (<2.0) 01/02/21 21:20 Ur Leukocyte Esterase Lg (Negative) 01/02/21 21:20 Urine WBC (Auto) 158.0 /HPF (0.0-6.0) H 01/02/21 21:20 Urine RBC (Auto) 10.0 /HPF (0.0-6.0) 01/02/21 21:20 Hyaline Casts 6 /LPF 01/02/21 21:20 Urine Mucus Few /HPF 01/02/21 21:20 Urine Yeast (Budding) 1+ /HPF 01/02/21 21:20 Microbiology: Microbiology 01/02/21 20:27 Peripheral/Venous Blood Culture - Preliminary NO GROWTH AFTER 24 HOURS 01/02/21 20:21 Peripheral/Venous Blood Culture - Preliminary NO GROWTH AFTER 24 HOURS Archibald/IV: Voiding Method Toilet Active Medications - Current Medications Current Medications: Generic Name Dose Route Start Last Admin Trade Name Freq PRN Reason Stop Dose Admin Acetaminophen 650 mg 01/02/21 23:39 01/03/21 23:30 Acetaminophen 325 Mg Tab PO 650 mg Q4H PRN Administration Pain MILD(1-3)/Fever >100.5/MALIK Aspirin 325 mg 01/03/21 10:00 01/03/21 12:21 Aspirin 325 Mg Tab PO 325 mg QDAY YUDELKA Administration Atorvastatin Calcium 40 mg 01/03/21 22:00 01/03/21 23:30 Atorvastatin 40 Mg Tab PO 40 mg QHS YUDELKA Administration Bisacodyl 10 mg 01/02/21 23:39 Bisacodyl 10 Mg Rect Supp UT QDAY PRN Constipation Carvedilol 6.25 mg 01/04/21 22:00 Carvedilol 6.25 Mg Tab PO BID [facility] Heparin Sodium (Porcine) 5,000 unit 01/03/21 06:00 01/04/21 05:44 Heparin 5,000 Unit/1 Ml Vial SUB-Q 5,000 unit Q8HR YUDELKA Administration Sodium Chloride 1,000 mls @ 125 mls/hr 01/02/21 23:45 01/03/21 23:39 Nacl 0.9% 1000 Ml IV 125 mls/hr DIRECT YUDELKA Administration Ceftriaxone Sodium 1 gm in 50 mls @ 100 mls/hr 01/03/21 10:00 01/03/21 12:22 Rocephin/Ns 1 Gm/50 Ml IV 100 mls/hr Q24HR YUDELKA Administration Protocol Isosorbide Mononitrate 60 mg 01/05/21 10:00 Isosorbide Mononitrate Er 60 Mg Tab PO QDAY YUDELKA Magnesium Hydroxide 30 ml 01/02/21 23:39 Magnesium Hydroxide (Mom) Oral Liqd Udc PO Q4H PRN Constipation Metoclopramide HCl 5 mg 01/02/21 23:39 Metoclopramide 10 Mg Tab PO Q6H PRN Nausea And Vomiting Morphine Sulfate 2 mg 01/02/21 23:39 Morphine 2 Mg/1 Ml Inj IV Q4H PRN Pain, Moderate (4-6) Ondansetron HCl 4 mg 01/02/21 23:39 Ondansetron 4 Mg/2 Ml Inj IV Q8H PRN Nausea And Vomiting Promethazine HCl 25 mg 01/02/21 23:39 Promethazine 25 Mg Rect Supp UT Q6H PRN Nausea And Vomiting Ranolazine 500 mg 01/04/21 22:00 Ranolazine Er 500 Mg Tab 12hr PO BID YUDELKA Sodium Chloride 10 ml 01/03/21 10:00 01/03/21 23:32 Sodium Chloride 0.9% 10 Ml Flush Syringe IV 10 ml BID YUDELKA Administration Sodium Chloride 10 ml 01/02/21 23:39 Sodium Chloride 0.9% 10 Ml Flush Syringe IV PRN PRN LINE FLUSH Zolpidem Tartrate 5 mg 01/03/21 04:58 01/03/21 05:14 Zolpidem 5 Mg Tab PO 5 mg QHS PRN Administration Sleep Nutrition/Malnutrition Assess - Dietary Evaluation Nutrition/Malnutrition Findings: Nutrition Notes Start: 01/03/21 11:25 Freq: Status: Active Protocol: Document 01/03/21 11:26 AL (Rec: 01/03/21 11:28 AL [id number]) Co-Sign 01/03/21 11:26 LP Nutrition Notes Need for Assessment generated from: MD Order,Education Initial or Follow up Brief Note Current Diagnosis Acute Kidney Injury, Hypertension Other Pertinent Diagnosis UTI, dehydration Current Diet Cardiac Diet Labs/Tests BUN 36 Cr 1.6 [place] 7.6 Pertinent Medications NS at 125 ml/hr Subjective/Other Information MD order for diet education. Unable to give diet education d/t pt still on hold in ED. Nutrition Intervention Follow-Up By: 01/04/21 Additional Comments FU for diet education on Heart healthy recommendations
[2021-01-04] MEDS: MORPHINE 2 MG/1 ML INJ IV PRN ×2 (10:46→23:49)
[2021-01-04] MEDS: cefTRIAXone/NS 1 GM/50 ML 1 GM/50 ML BAG IV SCH (10:47)
[2021-01-04] MEDS: ASPIRIN 325 MG TAB PO SCH (10:47)
[2021-01-04] MEDS ORDERED: FLU VACC QUAD 2020-2021 (6 months +)/PF 60 0.5 ML SYRINGE IM ONE (12:00)
[2021-01-04 12:57] LABS: BUN/Creatinine Ratio 17; Blood Urea Nitrogen 19 mg/dL (9-20); Calcium 7.7 mg/dL (8.4-10.2); Hemolysis Index 5
[2021-01-04] MEDS: SODIUM CHLORIDE 0.9% 1000 ML 1,000 ML IV SCH ×2 (13:01→22:45)
--- NOTE | 2021-01-04 20:00 | Progress Note ---
Assessment and Plan Assessment Acute kidney injury Hyponatremia, mild Acidosis Hypocalcemia Pyuria Reported h/o stones Recommendations Ionized calcium, vitamin D and PTH pending Start calcium supplementation Continue IVF Continue sodium bicarb tabs Renally dose medications Avoid nephrotoxins Keep MAP more than 65 Will sign off, please call with questions. Subjective Date of service: 01/04/21 Principal diagnosis: TIA Interval history: Adequate urine output Patient was seen for his renal issues Nursing, interdisciplinary and consult notes were reviewed Vitals, input and output, medications and labs were reviewed Imaging was reviewed Objective - Exam Narrative Exam: General: No acute distress Neck: Supple, no JVD Chest: Clear to auscultation bilaterally Heart: RRR, S1 and S2, no pericardial rub Abdomen: Soft, nontender, no renal bruit Extremity: No peripheral cyanosis, edema Neurological: Alert, awake, no asterixis Dermatology: No skin rash Psych: No agitation Musculoskeletal: No joint effusion - Vital Signs Vital signs: Vital Signs - 12hr 01/04/21 01/04/21 01/04/21 11:13 15:02 15:19 Temperature 98.0 F 98.9 F Pulse Rate 69 74 Respiratory 18 18 Rate Blood Pressure 136/70 107/57 O2 Sat by Pulse 96 95 100 Oximetry 01/04/21 01/04/21 01/04/21 15:20 15:30 15:40 Temperature Pulse Rate Respiratory Rate Blood Pressure O2 Sat by Pulse 100 100 100 Oximetry 01/04/21 01/04/21 01/04/21 17:06 17:10 17:20 Temperature Pulse Rate Respiratory Rate Blood Pressure O2 Sat by Pulse 100 100 100 Oximetry - Lab 01/03/21 04:48 01/04/21 11:30 Most recent lab results Calcium 7.7 mg/dL (8.4-10.2) L 01/04/21 11:30 Medications & Allergies - Medications Allergies/Adverse Reactions: Allergies oxytetracycline [From Terramycin] Allergy (Verified 01/02/21 19:11) HIVES,RASH oxytetracycline HCl [From Terramycin] Allergy (Verified 07/13/14 11:57) HIVES,RASH Home Medications: Home Medications Medication Instructions Recorded Confirmed Last Taken Type Gabapentin 2 cap PO BID 02/17/17 02/20/17 02/17/17 History lisinopriL [Zestril TAB] 10 mg PO QDAY 02/17/17 02/20/17 02/17/17 History 10 MG Aspirin 325 mg PO QDAY #30 tablet 02/23/17 Unknown Rx Gabapentin 600 mg PO BID #60 capsule 02/23/17 Unknown Rx ISOSORBIDE MONOnitrate [Imdur ER] 60 mg PO QDAY #30 tablet 02/23/17 Unknown Rx oxyCODONE /ACETAMINOPHEN [Percocet 1 tab PO Q6H PRN #30 tablet 02/23/17 Unknown Rx 5/325 mg] AtorvaSTATin [Lipitor] 40 mg PO QHS #30 tablet 03/09/18 Unknown Rx Ranolazine ER [Ranexa ER] 500 mg PO BID #60 tablet 03/09/18 Unknown Rx carvediloL [Coreg] 6.25 mg PO BID #60 tablet 03/09/18 Unknown Rx Active Medications: Generic Name Dose Route Start Last Admin Trade Name Freq PRN Reason Stop Dose Admin Acetaminophen 650 mg 01/02/21 23:39 01/03/21 23:30 Acetaminophen 325 Mg Tab PO 650 mg Q4H PRN Administration Pain MILD(1-3)/Fever >100.5/MALIK Aspirin 325 mg 01/03/21 10:00 01/04/21 10:47 Aspirin 325 Mg Tab PO 325 mg QDAY YUDELKA Administration Atorvastatin Calcium 40 mg 01/03/21 22:00 01/03/21 23:30 Atorvastatin 40 Mg Tab PO 40 mg QHS YUDELKA Administration Bisacodyl 10 mg 01/02/21 23:39 Bisacodyl 10 Mg Rect Supp DC QDAY PRN Constipation Carvedilol 6.25 mg 01/04/21 22:00 Carvedilol 6.25 Mg Tab PO BID YUDELKA Heparin Sodium (Porcine) 5,000 unit 01/03/21 06:00 01/04/21 13:01 Heparin 5,000 Unit/1 Ml Vial SUB-Q 5,000 unit Q8HR YUDELKA Administration Sodium Chloride 1,000 mls @ 125 mls/hr 01/02/21 23:45 01/04/21 13:01 Nacl 0.9% 1000 Ml IV 125 mls/hr DIRECT YUDELKA Administration Ceftriaxone Sodium 1 gm in 50 mls @ 100 mls/hr 01/03/21 10:00 01/04/21 10:47 Rocephin/Ns 1 Gm/50 Ml IV 100 mls/hr Q24HR YUDELKA Administration Protocol Isosorbide Mononitrate 60 mg 01/05/21 10:00 Isosorbide Mononitrate Er 60 Mg Tab PO QDAY YUDELKA Magnesium Hydroxide 30 ml 01/02/21 23:39 Magnesium Hydroxide (Mom) Oral Liqd Udc PO Q4H PRN Constipation Metoclopramide HCl 5 mg 01/02/21 23:39 Metoclopramide 10 Mg Tab PO Q6H PRN Nausea And Vomiting Morphine Sulfate 2 mg 01/02/21 23:39 01/04/21 10:46 Morphine 2 Mg/1 Ml Inj IV 2 mg Q4H PRN Administration Pain, Moderate (4-6) Ondansetron HCl 4 mg 01/02/21 23:39 01/04/21 10:47 Ondansetron 4 Mg/2 Ml Inj IV 4 mg Q8H PRN Administration Nausea And Vomiting Promethazine HCl 25 mg 01/02/21 23:39 Promethazine 25 Mg Rect Supp DC Q6H PRN Nausea And Vomiting Ranolazine 500 mg 01/04/21 22:00 Ranolazine Er 500 Mg Tab 12hr PO BID YUDELKA Sodium Chloride 10 ml 01/03/21 10:00 01/04/21 10:46 Sodium Chloride 0.9% 10 Ml Flush Syringe IV 10 ml BID YUDELKA Administration Sodium Chloride 10 ml 01/02/21 23:39 Sodium Chloride 0.9% 10 Ml Flush Syringe IV PRN PRN LINE FLUSH Zolpidem Tartrate 5 mg 01/03/21 04:58 01/03/21 05:14 Zolpidem 5 Mg Tab PO 5 mg QHS PRN Administration Sleep
[2021-01-04] MEDS: RANOLAZINE ER 500 MG TAB 12HR PO SCH (22:44)
[2021-01-04] MEDS: carvediloL 6.25 MG TAB PO SCH (22:44)
[2021-01-05] MEDS: HEPARIN 5,000 UNIT/1 ML VIAL SUB-Q SCH ×2 (05:56→13:54)
--- NOTE | 2021-01-05 09:04 | Event Note ---
Date: 01/05/21 The MRI demonstrates that the patient's stroke involved the left posterior parietal lobe. This was more likely caused by his hypotension than his carotid artery stenosis. The patient does however have significant stenosis of bilateral internal carotid arteries as well as bilateral common carotid arteries. He has a retropharyngeal course of bilateral carotid arteries which makes open endarterectomy challenging, and would require retrograde stenting of his common carotid artery, increasing the risk of complications. This patient would be best served by being referred to [facility] or [place] where he could be managed with carotid artery stenting. In the interim I would recommend dual antiplatelet therapy with Plavix 75 mg daily and Aspirin 81 mg daily, as well as Statin therapy. Would consider adjusting his medications to maintain a SBP > 130 mmHg.
--- NOTE | 2021-01-05 09:46 | Consultation ---
History of Present Illness Consult date: 01/05/21 Requesting physician: DONAVON KERN Consult reason: known to you History of present illness: Patient is a 60-year-old followed by Dr. Laguna in the clinic. He has a significant cardiac history including coronary artery disease status post bypass surgery high and hypertension. There is also a history of major depressive disorder and drug abuse. Is been in and out of the [facility], [facility] several times. Unfortunately unable to access office or hospital records from here. Patient presented to the hospital with slurred speech. Evaluation so for positive for an acute CVA. Work-up also revealed bilateral complex carotid artery stenosis. Has been evaluated by interventional radiology and vascular and felt that patient would need intervention at a tertiary care facility due to complex anatomy. Cardiology is being asked to evaluate the patient to help with medications as patient presented with significant hypertension. Patient currently reports he has chest pain and is asking for pain medicine but is completely asymptomatic. Past History Past Medical History: arthritis, CAD (H/O MA), COPD, GERD, hypertension, other (Asthma, major depressive disorder and history of drug abuse) Past Surgical History: CABG, Other (Back surgery,Open heart surgery,) Social history: smoking (Current daily smoker,), other (H/O Meth use) Medications and Allergies Allergies Allergy/AdvReac Type Severity Reaction Status Date / Time oxytetracycline Allergy HIVES,RASH Verified 01/02/21 19:11 [From Terramycin] oxytetracycline HCl Allergy HIVES,RASH Verified 07/13/14 11:57 [From Terramycin] Home Medications Medication Instructions Recorded Confirmed Last Taken Type Gabapentin 2 cap PO BID 02/17/17 02/20/17 02/17/17 History lisinopriL [Zestril TAB] 10 mg PO QDAY 02/17/17 02/20/17 02/17/17 History 10 MG Aspirin 325 mg PO QDAY #30 tablet 02/23/17 Unknown Rx Gabapentin 600 mg PO BID #60 capsule 02/23/17 Unknown Rx ISOSORBIDE MONOnitrate [Imdur ER] 60 mg PO QDAY #30 tablet 02/23/17 Unknown Rx oxyCODONE /ACETAMINOPHEN [Percocet 1 tab PO Q6H PRN #30 tablet 02/23/17 Unknown Rx 5/325 mg] AtorvaSTATin [Lipitor] 40 mg PO QHS #30 tablet 03/09/18 Unknown Rx Ranolazine ER [Ranexa ER] 500 mg PO BID #60 tablet 03/09/18 Unknown Rx carvediloL [Coreg] 6.25 mg PO BID #60 tablet 03/09/18 Unknown Rx Active Meds: Active Medications Acetaminophen (Acetaminophen 325 Mg Tab) 650 mg PO Q4H PRN PRN Reason: Pain MILD(1-3)/Fever >100.5/MALIK Last Admin: 01/03/21 23:30 Dose: 650 mg Documented by: Aspirin (Aspirin 325 Mg Tab) 325 mg PO QDAY [facility] Last Admin: 01/04/21 10:47 Dose: 325 mg Documented by: Atorvastatin Calcium (Atorvastatin 40 Mg Tab) 40 mg PO QHS [facility] Last Admin: 01/04/21 22:44 Dose: 40 mg Documented by: Bisacodyl (Bisacodyl 10 Mg Rect Supp) 10 mg NM QDAY PRN PRN Reason: Constipation Carvedilol (Carvedilol 6.25 Mg Tab) 6.25 mg PO BID [facility] Last Admin: 01/04/21 22:44 Dose: 6.25 mg Documented by: Heparin Sodium (Porcine) (Heparin 5,000 Unit/1 Ml Vial) 5,000 unit SUB-Q Q8HR [facility] Last Admin: 01/05/21 05:56 Dose: 5,000 unit Documented by: Sodium Chloride (Nacl 0.9% 1000 Ml) 1,000 mls @ 125 mls/hr IV DIRECT [facility] Last Admin: 01/04/21 22:45 Dose: 125 mls/hr Documented by: Ceftriaxone Sodium (Rocephin/Ns 1 Gm/50 Ml) 1 gm in 50 mls @ 100 mls/hr IV Q24HR [facility]; Protocol Last Admin: 01/04/21 10:47 Dose: 100 mls/hr Documented by: Isosorbide Mononitrate (Isosorbide Mononitrate Er 60 Mg Tab) 60 mg PO QDAY [facility] Magnesium Hydroxide (Magnesium Hydroxide (Mom) Oral Liqd Udc) 30 ml PO Q4H PRN PRN Reason: Constipation Metoclopramide HCl (Metoclopramide 10 Mg Tab) 5 mg PO Q6H PRN PRN Reason: Nausea And Vomiting Morphine Sulfate (Morphine 2 Mg/1 Ml Inj) 2 mg IV Q4H PRN PRN Reason: Pain, Moderate (4-6) Last Admin: 01/04/21 23:49 Dose: 2 mg Documented by: Ondansetron HCl (Ondansetron 4 Mg/2 Ml Inj) 4 mg IV Q8H PRN PRN Reason: Nausea And Vomiting Last Admin: 01/04/21 10:47 Dose: 4 mg Documented by: Promethazine HCl (Promethazine 25 Mg Rect Supp) 25 mg NM Q6H PRN PRN Reason: Nausea And Vomiting Ranolazine (Ranolazine Er 500 Mg Tab 12hr) 500 mg PO BID [facility] Last Admin: 01/04/21 22:44 Dose: 500 mg Documented by: Sodium Chloride (Sodium Chloride 0.9% 10 Ml Flush Syringe) 10 ml IV BID [facility] Last Admin: 01/04/21 22:47 Dose: 10 ml Documented by: Sodium Chloride (Sodium Chloride 0.9% 10 Ml Flush Syringe) 10 ml IV PRN PRN PRN Reason: LINE FLUSH Zolpidem Tartrate (Zolpidem 5 Mg Tab) 5 mg PO QHS PRN PRN Reason: Sleep Last Admin: 01/03/21 05:14 Dose: 5 mg Documented by: Review of Systems All systems: negative (Chronic pain.) Physical Examination Vital Signs Temp Pulse Resp BP Pulse Ox 97.9 F 88 18 83/52 98 01/02/21 19:14 01/02/21 19:14 01/02/21 19:14 01/02/21 19:14 01/02/21 19:14 Narrative exam: Moderately obese General appearance: no acute distress HEENT: Positive: Normocephaly Neck: Positive: neck supple Cardiac: Positive: Reg Rate and Rhythm Lungs: Positive: clear to auscultation Neuro: Positive: Cranial Nerve 2-12 Intact Abdomen: Positive: Unremarkable Male genitourinary: Positive: normal Skin: Positive: Clear Results 01/03/21 04:48 01/04/21 11:30 Comprehensive Metabolic Panel 01/04/21 Range/Units 11:30 Sodium 141 (137-145) mmol/L Potassium 4.2 (3.6-5.0) mmol/L Chloride 109.6 H (98-107) mmol/L Carbon Dioxide 24 (22-30) mmol/L BUN 19 (9-20) mg/dL Creatinine 1.1 (0.8-1.3) mg/dL Glucose 95 (75-100) mg/dL Calcium 7.7 L (8.4-10.2) mg/dL EKG interpretations - Telemetry EKG Rhythm: Sinus Rhythm (Right bundle branch block and biatrial enlargement) Assessment and Plan Impression: 1. New onset CVA symptoms are completely resolved 2. Critical bilateral carotid artery stenosis with complex anatomy 3. History of coronary artery disease status post remote bypass surgery 4. History of hypertension however presented with hypotension to the hospital 5. Abnormal EKG right bundle branch block that is old 6. Chronic med abuse 7. History of drug abuse 8. History of major depressive disorder Plan: 1. Decrease Imdur and eventually may have to discontinue due to hypotension episode 2. Continue rest. 3. As recommended by vascular will need aspirin Plavix and statins. 4. Patient is to be referred as an outpatient to a tertiary institution for complex stenting of the carotids. 5. No further inpatient cardiac work-up. Restratification can be done as an outpatient or at the tertiary institution.
[2021-01-05] MEDS: RANOLAZINE ER 500 MG TAB 12HR PO SCH (11:05)
[2021-01-05] MEDS: ASPIRIN 325 MG TAB PO SCH (11:05)
[2021-01-05] MEDS: cefTRIAXone/NS 1 GM/50 ML 1 GM/50 ML BAG IV SCH (11:05)
[2021-01-05] MEDS: carvediloL 6.25 MG TAB PO SCH (11:05)
[2021-01-05] MEDS: MORPHINE 2 MG/1 ML INJ IV PRN (11:06)
--- NOTE | 2021-01-05 14:55 | Discharge Summary ---
Providers - Providers Date of Admission: 01/03/21 15:52 Date of discharge: 01/05/21 Attending physician: DONAVON KERN 01/02/21 23:39 Consult to Physician [CONS] Routine Comment: Consulting Provider: HIRA BENITEZ Physician Instructions: Reason For Exam: Slurred speech.R/O TIA 01/02/21 23:40 Consult to Dietitian/Nutrition [CONS] Routine Physician Instructions: Reason For Exam: Reason for Consult: Nutrition Recommendations Reason for Consult: Diet education Occupational Therapy Evaluate and Treat [CONS] Routine Comment: Reason For Exam: Neuro deficits Physical Therapy Evaluation and Treat [CONS] Routine Comment: Reason For Exam: Neuro deficits 01/02/21 23:51 Consult to Physician [CONS] Routine Comment: Consulting Provider: KRAIG TORRES Physician Instructions: Reason For Exam: cute Renal Failure 01/03/21 09:37 Consult to Physician [CONS] Routine Comment: Consulting Provider: GALDINO BRAUN Physician Instructions: Reason For Exam: High-grade bilateral carotid stenosis/CVA 01/04/21 10:27 Consult to Physician [CONS] Routine Comment: rec by vascular Consulting Provider: IRINEO KENDRICK Physician Instructions: Reason For Exam: Carotid artery stenosis/CVA/CAD status post CABG Primary care physician: WET ROLLER Hospitalization Condition: Stable Disposition: DC-01 TO HOME OR SELFCARE Time spent for discharge: 35 min Core Measure Documentation - Palliative Care Palliative Care/ Comfort Measures: Not Applicable - Core Measures Any of the following diagnoses?: stroke - Stroke Discharge Requirements Statin for LDL = or >70 mg/dl on DC: Yes Anticoag for atrial fib/atrial flutter: Not Applicable (No A. fib/no flutter) Antithrombotic for ischemic stroke: Yes Exam - Constitutional Vitals: Temp Pulse Resp BP Pulse Ox 98.3 F 74 18 134/68 97 01/05/21 12:24 01/05/21 12:24 01/05/21 10:00 01/05/21 12:24 01/05/21 12:24 Plan Activity: advance as tolerated, fall precautions Diet: other (Cardiac diet) Special Instructions: smoking cessation Additional Instructions: Advised smoking cessation. Fall precautions. If you have worsening symptoms contact MD or go to emergency room. Strongly advised to comply with medications, diet and follow-up visits. Advised to see private neurologist Dr. Basurto in 1-2 weeks. Occupational Therapy; recommended home OT upon discharge, however patient refused. Smoking cessation Follow up with: PRIMARY CARE, [Primary Care Provider] - 7 Days MILDRED BASURTO MD [Staff Physician] - 7 Days GALDINO BRAUN MD [Staff Physician] - 7 Days IRINEO KENDRICK MD [Staff Physician] - 7 Days Prescriptions: Aspirin EC [Halfprin EC] 81 mg PO QDAY #30 tablet. ISOSORBIDE MONOnitrate [Imdur ER] 30 mg PO DAILY #30 tab.er.24h AtorvaSTATin [Lipitor] 40 mg PO QHS #30 tablet Clopidogrel [Plavix] 75 mg PO QDAY #30 tablet
[2021-01-05 19:52] VITALS: BP 146/67
--- NOTE | 2021-01-05 20:33 | Progress Note ---
Assessment and Plan Assessment Acute kidney injury Hyponatremia, mild Acidosis Hypocalcemia Pyuria Reported h/o stones Recommendations Ionized calcium, vitamin D and PTH pending Renal US report pending Calcium supplementation S/p IVF, encouraged PO hydration Continue sodium bicarb tabs Renally dose medications Avoid nephrotoxins Keep MAP more than 65 Will sign off, please call with questions. Subjective Date of service: 01/05/21 Principal diagnosis: TIA Interval history: Good urine output Patient was seen for his renal issues Nursing, interdisciplinary and consult notes were reviewed Vitals, input and output, medications and labs were reviewed Imaging was reviewed Objective - Exam Narrative Exam: General: No acute distress Neck: Supple, no JVD Chest: Clear to auscultation bilaterally Heart: RRR, S1 and S2, no pericardial rub Abdomen: Soft, nontender, no renal bruit Extremity: No peripheral cyanosis, edema Neurological: Alert, awake, no asterixis Dermatology: No skin rash Psych: No agitation Musculoskeletal: No joint effusion - Vital Signs Vital signs: Vital Signs - 12hr 01/05/21 01/05/21 01/05/21 10:00 11:04 12:24 Temperature 98.3 F Pulse Rate 69 74 Respiratory 18 Rate Blood Pressure 120/55 134/68 O2 Sat by Pulse 98 97 Oximetry 01/05/21 01/05/21 16:20 19:52 Temperature 97.3 F L 98.0 F Pulse Rate 70 71 Respiratory 18 Rate Blood Pressure 125/60 146/67 O2 Sat by Pulse 96 97 Oximetry - Lab 01/03/21 04:48 01/04/21 11:30 Most recent lab results Calcium 7.7 mg/dL (8.4-10.2) L 01/04/21 11:30 Medications & Allergies - Medications Allergies/Adverse Reactions: Allergies oxytetracycline [From Terramycin] Allergy (Verified 01/02/21 19:11) HIVES,RASH oxytetracycline HCl [From Terramycin] Allergy (Verified 07/13/14 11:57) HIVES,RASH Home Medications: Home Medications Medication Instructions Recorded Confirmed Last Taken Type lisinopriL [Zestril TAB] 10 mg PO QDAY 02/17/17 02/20/17 02/17/17 History 10 MG oxyCODONE /ACETAMINOPHEN [Percocet 1 tab PO Q6H PRN #30 tablet 02/23/17 Unknown Rx 5/325 mg] Ranolazine ER [Ranexa ER] 500 mg PO BID #60 tablet 03/09/18 Unknown Rx carvediloL [Coreg] 6.25 mg PO BID #60 tablet 03/09/18 Unknown Rx Aspirin EC [Halfprin EC] 81 mg PO QDAY #30 tablet.dr 01/05/21 Unknown Rx AtorvaSTATin [Lipitor] 40 mg PO QHS #30 tablet 01/05/21 Unknown Rx Clopidogrel [Plavix] 75 mg PO QDAY #30 tablet 01/05/21 Unknown Rx ISOSORBIDE MONOnitrate [Imdur ER] 30 mg PO DAILY #30 tab.er.24h 01/05/21 Unknown Rx Nicotine [Habitrol] 14 mg TD DAILY #30 patch 01/05/21 Unknown Rx
[2021-01-06] MEDS ORDERED: CLOPIDOGREL 75 MG TAB PO SCH (10:00)
== END 2021-01-05 20:00 | disposition home or self-care (01) | DRG 871 ==
LOC: ED 19:09 → IMCU 22:11 → OBSVTOIN 01-03 15:52 → 4A 01-03 20:20
PROVIDERS: ADMIT Internal Medicine Geriatric Medicine; ATTEND Internal Medicine
DX: A41.9 Sepsis, unspecified organism (principal); I63.9 Cerebral infarction, unspecified; N17.0 Acute kidney failure with tubular necrosis; E87.1 Hypo-osmolality and hyponatremia; N39.0 Urinary tract infection, site not specified; E87.2 Acidosis; J44.9 Chronic obstructive pulmonary disease, unspecified; E83.51 Hypocalcemia; I65.23 Occlusion and stenosis of bilateral carotid arteries; M19.90 Unspecified osteoarthritis, unspecified site; I25.10 Atherosclerotic heart disease of native coronary artery without angina pectoris; K21.9 Gastro-esophageal reflux disease without esophagitis; I10 Essential (primary) hypertension; F32.9 Major depressive disorder, single episode, unspecified; E86.0 Dehydration; E66.9 Obesity, unspecified; R29.701 NIHSS score 1; R47.1 Dysarthria and anarthria; F17.200 Nicotine dependence, unspecified, uncomplicated; Z88.1 Allergy status to other antibiotic agents; Z79.82 Long term (current) use of aspirin; Z79.899 Other long term (current) drug therapy; Z68.36 Body mass index [BMI] 36.0-36.9, adult; I25.2 Old myocardial infarction; Z95.1 Presence of aortocoronary bypass graft; Z87.442 Personal history of urinary calculi
CPT/HCPCS: 36415; 70450; 70496; 70498; 70551; 71045; 76770; 80048; 80053; 80061; 81001; 82140; 82306; 82330; 82550; 82553; 82962; 83970; 84484; 85025; 85610; 85670; 85730; 87040; 87086; 90686; 93005; 93306; 93880; 96374; 96375; 96376; 99406; G0378; A9270-GY; J0696; J1644; J1885; J2270; J2405; J7030; Q9967

== ENCOUNTER 2021-04-15 03:34 | Emergency (ER) | payer MEDICARE ==
[2021-04-15] MEDS ORDERED: oxyCODONE /ACETAMINOPHEN 5-325MG TAB PO ONE ×2 (04:55→09:44)
[2021-04-15] MEDS ORDERED: ONDANSETRON 4 MG ODT TAB PO ONE (04:55)
[2021-04-15] MEDS ORDERED: TAMSULOSIN 0.4 MG CAP PO ONE (04:55)
--- NOTE | 2021-04-15 04:59 | Event Note ---
ED Screening Note Date of service: 04/15/21 Time: 04:56 ED Screening Note: Patient is a 60-year-old white male with a history of chronic recurrent kidney stones, hypertension, carotid artery stenosis status post surgery, hyperlipidemia presents to the ED with complaint of acute onset persistent severe right flank pain that radiates to the right lower quadrant area for the last 2 months, worse in the last 3 days. Patient states that he was scheduled for lithotripsy procedure in [facility] about 2 months ago but was unable to undergo this procedure because he developed strokelike symptoms and had to be treated for the same. Patient denies vomiting, dysuria, urinary frequency and u rgency, hematuria, chest pain or shortness of breath, fever, chills, traumatic injury or heavy lifting and fall. This initial assessment/diagnostic orders/clinical plan/treatment(s) is/are subject to change based on patients health status, clinical progression and re- assessment by fellow clinical providers in the ED. Further treatment and workup at subsequent clinical providers discretion. Patient/guardian urged not to elope from the ED as their condition may be serious if not clinically assessed and managed. Initial orders include: CBC, CMP, UA, lipase, CT abdomen pelvis without contrast
[2021-04-15 05:26] LABS: Basophils % (Auto) 0.2 % (0.0-1.8); Eosinophils % (Auto) 0.1 % (0.0-4.3); Hematocrit 42.1 % (35.5-45.6); Hemoglobin 13.7 gm/dl (11.8-15.2); Lymphocytes # (Auto) 1.4 K/mm3 (1.2-5.4); Lymphocytes % (Auto) 8.2 % (13.4-35.0); Mean Corpuscular HGB Conc 33 % (32-34); Mean Corpuscular Volume 87 fl (84-94); Monocytes # (Auto) 1.1 K/mm3 (0.0-0.8); Monocytes % (Auto) 6.6 % (0.0-7.3); Platelet Count 338 K/mm3 (140-440); Red Blood Count 4.83 M/mm3 (3.65-5.03); Red Cell Distribution Width 15.3 % (13.2-15.2)
[2021-04-15 05:51] LABS: Alanine Aminotransferase 14 units/L (7-56); BUN/Creatinine Ratio 9; Blood Urea Nitrogen 10 mg/dL (9-20); Calcium 8.7 mg/dL (8.4-10.2); Hemolysis Index 0
--- NOTE | 2021-04-15 06:08 | Cat Scan Report ---
CT ABDOMEN AND PELVIS WITHOUT CONTRAST HISTORY: Right flank pain - kidney stone r/o. COMPARISON: None. TECHNIQUE: CT images of the abdomen and pelvis were obtained without administration of intravenous co ntrast. All CT scans at this location are performed using CT dose reduction for ALARA by means of au tomated exposure control. FINDINGS: Lungs/bones: Lung bases are clear. Abdomen/pelvis: Within limits of a noncontrast exam the liver, spleen, adrenal glands, pancreas, gal lbladder and upper GI tract appear normal. Nonobstructing stones in lower pole of left kidney measure s 19 mm. There is mild inflammation surrounding the right kidney. Within the right renal pelvis there is a 1.4 x 0.95 cm calculus. Additional nonobstructing stones within the lower pole on the right shawn suring 1 cm. Atherosclerotic changes seen throughout the aorta. Sigmoid and colonic diverticulosis. IMPRESSION: 1. Obstructing stone within the right UPJ with right hydroureteronephrosis inflammatory stranding bart rounding the right kidney. 2. Nonobstructing bilateral renal stones. 3. Diverticulosis Signer Name: Dex Ferreira MD Signed: 04/15/2021 6:04 AM Workstation Name: [id number]
[2021-04-15] MEDS ORDERED: cefTRIAXone/NS 2 GM/100 ML 2 GM/100 ML BAG IV ONE (07:49)
[2021-04-15] MEDS ORDERED: ONDANSETRON 4 MG/2 ML INJ IV ONE (07:59)
[2021-04-15] MEDS ORDERED: HYDROmorphone 1 MG/1 ML INJ IV ONE ×2 (07:59→10:08)
[2021-04-15] MEDS ORDERED: KETOROLAC 30 MG/1 ML INJ IV ONE (07:59)
--- NOTE | 2021-04-15 08:13 | Emergency Department Report ---
ED Back Pain/Injury HPI - General Chief Complaint: Abdominal Pain Stated Complaint: RIGHT FLANK PAIN Time Seen by Provider: 04/15/21 07:48 Source: patient Limitations: No Limitations - History of Present Illness Initial Comments: Chief complaint: "I have a stone on the right side." HPI: This is a 60-year-old male with history of CVA, kidney stone, TIA, CAD status post CABG, hypertension who presents with right flank pain since yesterday. 8 out of 10 dull pain without radiation. Patient had previously scheduled stone extraction at [facility]. However during the ap pointment, he experienced a major stroke. He underwent carotid endarterectomy. During his recovery he has not been able to reschedule the urological procedure. His personal urologist Dr.Spencer Mauro . Patient has mild nausea. Denies fever or chills. Denies chest pain. No radiation. MD Complaint: back pain -: Gradual, days(s) (1 day on yesterday) Similar Symptoms Previously: Yes Place: home Severity: severe Severity scale (0 -10): 8 Quality: dull Consistency: constant Improves With: none Worsens With: none Associated Symptoms: other (Nausea) - Related Data Home Medications Medication Instructions Recorded Confirmed Last Taken lisinopriL [Zestril TAB] 10 mg PO QDAY 02/17/17 02/20/17 02/17/17 10 MG Previous Rx's Medication Instructions Recorded Last Taken Type oxyCODONE /ACETAMINOPHEN [Percocet 1 tab PO Q6H PRN #30 tablet 02/23/17 Unknown Rx 5/325 mg] Ranolazine ER [Ranexa ER] 500 mg PO BID #60 tablet 03/09/18 Unknown Rx carvediloL [Coreg] 6.25 mg PO BID #60 tablet 03/09/18 Unknown Rx Aspirin EC [Halfprin EC] 81 mg PO QDAY #30 tablet. 01/05/21 Unknown Rx AtorvaSTATin [Lipitor] 40 mg PO QHS #30 tablet 01/05/21 Unknown Rx Clopidogrel [Plavix] 75 mg PO QDAY #30 tablet 01/05/21 Unknown Rx ISOSORBIDE MONOnitrate [Imdur ER] 30 mg PO DAILY #30 tab.er.24h 01/05/21 Unknown Rx Nicotine [Habitrol] 14 mg TD DAILY #30 patch 01/05/21 Unknown Rx Tamsulosin [Flomax] 0.4 mg PO QDAY 7 Days #7 cap 04/15/21 Unknown Rx cephALEXin [Keflex] 500 mg PO QID 5 Days #20 capsule 04/15/21 Unknown Rx oxyCODONE /ACETAMINOPHEN [Percocet 1 tab PO Q4HR PRN #15 tab 04/15/21 Unknown Rx 5/325] Allergies Allergy/AdvReac Type Severity Reaction Status Date / Time oxytetracycline Allergy HIVES,RASH Verified 01/02/21 19:11 [From Terramycin] oxytetracycline HCl Allergy HIVES,RASH Verified 07/13/14 11:57 [From Terramycin] tobramycin Allergy Hives Verified 04/15/21 09:35 ED Review of Systems ROS: Stated complaint: RIGHT FLANK PAIN Other details as noted in HPI Comment: All other systems reviewed and negative Constitutional: denies: chills, fever, malaise Respiratory: denies: cough, shortness of breath Gastrointestinal: nausea Musculoskeletal: back pain ED Past Medical Hx - Past Medical History Previous Medical History?: Yes Hx Hypertension: Yes Hx Heart Attack/AMI: Yes Hx Congestive Heart Failure: Yes Hx Diabetes: No Hx GERD: Yes Hx Arthritis: Yes Hx Kidney Stones: Yes Hx Psychiatric Treatment: Yes (meth abuse) Hx Asthma: Yes (no inhaler use. no recent attacks) Hx COPD: Yes - Surgical History Past Surgical History?: Yes Hx Coronary Stent: Yes (1) Hx Open Heart Surgery: Yes (2001- vessel) Additional Surgical History: back surgery - Social History Smoking Status: Former Smoker Substance Use Type: Methamphetamines - Medications Home Medications: Home Medications Medication Instructions Recorded Confirmed Last Taken Type lisinopriL [Zestril TAB] 10 mg PO QDAY 02/17/17 02/20/17 02/17/17 History 10 MG oxyCODONE /ACETAMINOPHEN [Percocet 1 tab PO Q6H PRN #30 tablet 02/23/17 Unknown Rx 5/325 mg] Ranolazine ER [Ranexa ER] 500 mg PO BID #60 tablet 03/09/18 Unknown Rx carvediloL [Coreg] 6.25 mg PO BID #60 tablet 03/09/18 Unknown Rx Aspirin EC [Halfprin EC] 81 mg PO QDAY #30 tablet. 01/05/21 Unknown Rx AtorvaSTATin [Lipitor] 40 mg PO QHS #30 tablet 01/05/21 Unknown Rx Clopidogrel [Plavix] 75 mg PO QDAY #30 tablet 01/05/21 Unknown Rx ISOSORBIDE MONOnitrate [Imdur ER] 30 mg PO DAILY #30 tab.er.24h 01/05/21 Unknown Rx Nicotine [Habitrol] 14 mg TD DAILY #30 patch 01/05/21 Unknown Rx Tamsulosin [Flomax] 0.4 mg PO QDAY 7 Days #7 cap 04/15/21 Unknown Rx cephALEXin [Keflex] 500 mg PO QID 5 Days #20 capsule 04/15/21 Unknown Rx oxyCODONE /ACETAMINOPHEN [Percocet 1 tab PO Q4HR PRN #15 tab 04/15/21 Unknown Rx 5/325] ED Physical Exam - General Limitations: No Limitations General appearance: alert, in no apparent distress, other (Well-appearing nontoxic) - Head Head exam: Present: atraumatic, normocephalic - Eye Eye exam: Present: normal appearance - ENT ENT exam: Present: mucous membranes moist - Neck Neck exam: Present: normal inspection, full ROM - Respiratory Respiratory exam: Present: normal lung sounds bilaterally. Absent: respiratory distress, wheezes, rales, rhonchi - Cardiovascular Cardiovascular Exam: Present: regular rate, normal rhythm, normal heart sounds. Absent: systolic murmur, diastolic murmur, rubs, gallop - GI/Abdominal GI/Abdominal exam: Present: soft, normal bowel sounds. Absent: distended, tenderness, guarding, rebound - Rectal Rectal exam: Present: deferred - Extremities Exam Extremities exam: Present: normal inspection - Back Exam Back exam: Present: normal inspection. Absent: tenderness, CVA tenderness (R), CVA tenderness (L), muscle spasm - Neurological Exam Neurological exam: Present: alert, oriented X3 - Psychiatric Psychiatric exam: Present: normal affect, normal mood - Skin Skin exam: Present: warm, dry, intact, normal color. Absent: rash ED Course Vital Signs 04/15/21 04/15/21 04/15/21 04:44 09:23 09:32 Temperature 98.1 F Pulse Rate 71 81 Respiratory 18 16 Rate Blood Pressure 194/85 148/59 O2 Sat by Pulse 97 Oximetry ED Medical Decision Making - Lab Data Result diagrams: 04/15/21 04:56 04/15/21 04:56 Laboratory Results - last 24 hr 04/15/21 04/15/21 04:56 04:56 WBC 16.5 H RBC 4.83 Hgb 13.7 Hct 42.1 MCV 87 MCH 28 MCHC 33 RDW 15.3 H Plt Count 338 Lymph % (Auto) 8.2 L [place] % (Auto) 6.6 Eos % (Auto) 0.1 Baso % (Auto) 0.2 Lymph # (Auto) 1.4 [place] # (Auto) 1.1 H Eos # (Auto) 0.0 Baso # (Auto) 0.0 Seg Neutrophils % 84.9 H Seg Neutrophils # 14.0 H Sodium 144 Potassium 3.6 Chloride 107.7 H Carbon Dioxide 25 Anion Gap 15 BUN 10 Creatinine 1.1 Estimated GFR > 60 BUN/Creatinine Ratio 9 Glucose 147 H Calcium 8.7 Total Bilirubin 0.40 AST 12 ALT 14 Alkaline Phosphatase 87 Total Protein 7.3 Albumin 4.0 Albumin/Globulin Ratio 1.2 Lipase 16 - Radiology Data Radiology results: report reviewed Patient Name: PO WILL Gender: Male Date of : 1960 Referring Provider: WARNER SZYMANSKI Organization: [facility] Accession Number: [id number] Requested Date: April 15, 2021 04:55 Report Status: Final Requested Procedure: 1 Procedure Description: CT abdomen pelvis wo con Modality: CT Findings Reporting MD: Dex Ferreira Dictation Time: April 15, 2021 05:04 Legal File Clerk: Not available Sales Service 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 COMPARISON: None. TECHNIQUE: CT images of the abdomen and pelvis were obtained without administration of intravenous contrast. All CT scans at this location are performed using CT dose reduction for ALARA by means of automated exposure control. FINDINGS: Lungs/bones: Lung bases are clear. Abdomen/pelvis: Within limits of a noncontrast exam the liver, spleen, adrenal glands, pancreas, gallbladder and upper GI tract appear normal. Nonobstructing stones in lower pole of left kidney measures 19 mm. There is mild inflammation surrounding the right kidney. Within the right renal pelvis there is a 1.4 x 0.95 cm calculus. Additional nonobstructing stones within the lower pole on the right measuring 1 cm. Atherosclerotic changes seen throughout the aorta. Sigmoid and colonic diverticulosis. IMPRESSION: 1. Obstructing stone within the right UPJ with right hydroureteronephrosis inflammatory stranding surrounding the right kidney. 2. Nonobstructing bilateral renal stones. 3. Diverticulosis Signer Name: Dex Ferreira MD Signed: 04/15/2021 5:04 AM Workstation Name: [email or web address] - Medical Decision Making Right-sided renal colic due to large stone at the UPJ, no signs of SIRS. Isolated leukocytosis nonspecific. I spoke with nurse practitioner for Dr. Mauro who is familiar with patient. She will speak with Dr. Mauro in order to arrange surgery this week. Electric [employer]or [employer]ic will contact Dr. Will with appointment Normal kidney function. Patient prescribed cephalexin prophylactically. Also prescribed Percocet and Flomax. Mr. Will verbalized understanding of return precautions including fever, severe pain or significant vomiting Patient's pain was easily controlled. Upon discharge 0 out of 10. He understands to schedule surgical intervention this week. Critical care attestation.: If time is entered above; I have spent that time in minutes in the direct care of this critically ill patient, excluding procedure time. ED Disposition Clinical Impression: Renal colic on right side, Kidney stone on right side Disposition: DC-01 TO HOME OR SELFCARE Is pt being admited?: No Does the pt Need Aspirin: No Condition: Stable Additional Instructions: Please call Dr. Mauro's office to make appointment for intervention this week. Prescriptions: Tamsulosin [Flomax] 0.4 mg PO QDAY 7 Days #7 cap cephALEXin [Keflex] 500 mg PO QID 5 Days #20 capsule oxyCODONE /ACETAMINOPHEN [Percocet 5/325] 1 tab PO Q4HR PRN #15 tab PRN Reason: Pain , Severe (7-10) Referrals: MARY MCCALL MD [Primary Care Provider] - 3-5 Days
[2021-04-15 10:12] LABS: Bilirubin,Urine NEG (Negative); Blood,Urine MOD (Negative); Color,Urine Yellow (Yellow); Mucus,Urine FEW /HPF; Urobilinogen,Urine < 2.0 mg/dL (<2.0)
[2021-04-15 10:16] LABS: WBC,Urine > 182.0 /HPF (0.0-6.0)
[2021-04-15 10:57] VITALS: BP 144/55
== END 2021-04-15 10:59 | disposition home or self-care (01) ==
LOC: ED 03:34
DX: N23 Unspecified renal colic (principal); N20.0 Calculus of kidney; I11.0 Hypertensive heart disease with heart failure; I50.9 Heart failure, unspecified; K21.9 Gastro-esophageal reflux disease without esophagitis; M19.90 Unspecified osteoarthritis, unspecified site; J44.9 Chronic obstructive pulmonary disease, unspecified; F15.90 Other stimulant use, unspecified, uncomplicated; Z87.891 Personal history of nicotine dependence; Z98.890 Other specified postprocedural states; Z88.1 Allergy status to other antibiotic agents; Z79.899 Other long term (current) drug therapy; Z88.8 Allergy status to other drugs, medicaments and biological substances
CPT/HCPCS: 36415; 74176; 80053; 81001; 83690; 85025; 96365; 96375; 96376; 99284; J0696; J1170; J1885; J2405; Q0162

== ENCOUNTER 2021-05-07 09:57 | Emergency (ER) | payer MEDICARE ==
--- NOTE | 2021-05-07 10:54 | Event Note ---
ED Screening Note ED Screening Note: presents with left flank pain since this morning states he has an obstructive stone on the right side which he is having surgery for on 05/24/2021 no fever +nausea no vomiting or diarrhea PMHx CAD with CABG allergy: tobramycin, oxytetracycline This initial assessment/diagnostic orders/clinical plan/treatment(s) is/are subject to change based on patients health status, clinical progression and re- assessment by fellow clinical providers in the ED. Further treatment and workup at subsequent clinical providers discretion. Patient/guardian urged not to elope from the ED as their condition may be serious if not clinically assessed and managed. Initial orders include: labs, ua , US
[2021-05-07 11:23] LABS: Bilirubin,Urine NEG (Negative); Blood,Urine MOD (Negative); Color,Urine Yellow (Yellow); Mucus,Urine FEW /HPF; Urobilinogen,Urine < 2.0 mg/dL (<2.0); WBC,Urine > 182.0 /HPF (0.0-6.0)
--- NOTE | 2021-05-07 12:01 | Ultrasound Report ---
ULTRASOUND RENAL INDICATION / CLINICAL INFORMATION: bilateral flank pain. COMPARISON: CT dated 04/15/2021 FINDINGS: RIGHT KIDNEY: Length = 14.9 cm. - Echogenicity: Normal. - Cortical Thickness: Normal. - Hydronephrosis: Moderate - Cyst / Mass: There hypoattenuating lesions measuring up to 1.0 and 1.2 cm, likely representing a si mple renal cysts. - Stones: There is a 6 mm echogenic focus within the inferior kidney, as well as a 1.1 cm echogenic f ocus within the inferior kidney, both which likely represent nephrolithiasis. LEFT KIDNEY: Length = 13.4 cm. - Echogenicity: Normal. - Cortical Thickness: Normal. - Hydronephrosis: Moderate - Cyst / Mass: There is a hypoattenuating lesion measuring about 1.5 cm within the midportion of the kidney, likely representing a simple renal cyst. - Stones: There is a 1.1 cm echogenic focus within the inferior aspect of the kidney, likely represen ting nephrolithiasis URINARY BLADDER: Not well visualized secondary to patient voiding FREE FLUID: None. ADDITIONAL FINDINGS: None. IMPRESSION: 1. Moderate bilateral hydronephrosis. 2. Bilateral renal cysts. 3. Bilateral nephrolithiasis. Signer Name: Chivo Wynne DO Signed: 05/07/2021 11:57 AM Workstation Name: [id number]
[2021-05-07] MEDS ORDERED: cefTRIAXone/NS 1 GM/50 ML 1 GM/50 ML BAG IV ONE (12:05)
[2021-05-07] MEDS ORDERED: ONDANSETRON 4 MG/2 ML INJ IV ONE ×2 (12:05→22:51)
[2021-05-07] MEDS ORDERED: MORPHINE 4 MG/1 ML INJ IV ONE (12:05)
--- NOTE | 2021-05-07 13:10 | Emergency Department Report ---
<TSERINGINOCENCIO - Last Filed: 05/07/21 14:48> ED General Adult HPI - General Chief complaint: Urogenital-Male Stated complaint: KIDNEY STONE Time Seen by Provider: 05/07/21 10:52 - Related Data Home Medications Medication Instructions Recorded Confirmed Last Taken lisinopriL [Zestril TAB] 10 mg PO QDAY 02/17/17 02/20/17 02/17/17 10 MG Previous Rx's Medication Instructions Recorded Last Taken Type oxyCODONE /ACETAMINOPHEN [Percocet 1 tab PO Q6H PRN #30 tablet 02/23/17 Unknown Rx 5/325 mg] Ranolazine ER [Ranexa ER] 500 mg PO BID #60 tablet 03/09/18 Unknown Rx carvediloL [Coreg] 6.25 mg PO BID #60 tablet 03/09/18 Unknown Rx Aspirin EC [Halfprin EC] 81 mg PO QDAY #30 tablet. 01/05/21 Unknown Rx AtorvaSTATin [Lipitor] 40 mg PO QHS #30 tablet 01/05/21 Unknown Rx Clopidogrel [Plavix] 75 mg PO QDAY #30 tablet 01/05/21 Unknown Rx ISOSORBIDE MONOnitrate [Imdur ER] 30 mg PO DAILY #30 tab.er.24h 01/05/21 Unknown Rx Nicotine [Habitrol] 14 mg TD DAILY #30 patch 01/05/21 Unknown Rx Tamsulosin [Flomax] 0.4 mg PO QDAY 7 Days #7 cap 04/15/21 Unknown Rx cephALEXin [Keflex] 500 mg PO QID 5 Days #20 capsule 04/15/21 Unknown Rx oxyCODONE /ACETAMINOPHEN [Percocet 1 tab PO Q4HR PRN #15 tab 04/15/21 Unknown Rx 5/325] Allergies Allergy/AdvReac Type Severity Reaction Status Date / Time oxytetracycline Allergy HIVES,RASH Verified 05/07/21 09:58 [From Terramycin] oxytetracycline HCl Allergy HIVES,RASH Verified 05/07/21 09:58 [From Terramycin] tobramycin Allergy Hives Verified 05/07/21 09:58 ED Past Medical Hx - Medications Home Medications: Home Medications Medication Instructions Recorded Confirmed Last Taken Type lisinopriL [Zestril TAB] 10 mg PO QDAY 02/17/17 02/20/17 02/17/17 History 10 MG oxyCODONE /ACETAMINOPHEN [Percocet 1 tab PO Q6H PRN #30 tablet 02/23/17 Unknown Rx 5/325 mg] Ranolazine ER [Ranexa ER] 500 mg PO BID #60 tablet 03/09/18 Unknown Rx carvediloL [Coreg] 6.25 mg PO BID #60 tablet 03/09/18 Unknown Rx Aspirin EC [Halfprin EC] 81 mg PO QDAY #30 tablet.dr 01/05/21 Unknown Rx AtorvaSTATin [Lipitor] 40 mg PO QHS #30 tablet 01/05/21 Unknown Rx Clopidogrel [Plavix] 75 mg PO QDAY #30 tablet 01/05/21 Unknown Rx ISOSORBIDE MONOnitrate [Imdur ER] 30 mg PO DAILY #30 tab.er.24h 01/05/21 Unknown Rx Nicotine [Habitrol] 14 mg TD DAILY #30 patch 01/05/21 Unknown Rx Tamsulosin [Flomax] 0.4 mg PO QDAY 7 Days #7 cap 04/15/21 Unknown Rx cephALEXin [Keflex] 500 mg PO QID 5 Days #20 capsule 04/15/21 Unknown Rx oxyCODONE /ACETAMINOPHEN [Percocet 1 tab PO Q4HR PRN #15 tab 04/15/21 Unknown Rx 5/325] ED Medical Decision Making - Lab Data Result diagrams: 05/07/21 12:46 05/07/21 12:46 Vital Signs 05/07/21 05/07/21 10:03 13:29 Temperature 98.2 F Pulse Rate 80 Respiratory 28 H Rate Blood Pressure 159/72 Blood Pressure 163/84 [Left] O2 Sat by Pulse 95 Oximetry Lab Results 05/07/21 05/07/21 05/07/21 Range/Units 12:46 12:46 12:46 WBC 15.9 H (4.5-11.0) K/mm3 RBC 4.23 (3.65-5.03) M/mm3 Hgb 11.4 L (11.8-15.2) gm/dl Hct 34.7 L (35.5-45.6) % MCV 82 L (84-94) fl MCH 27 L (28-32) pg MCHC 33 (32-34) % RDW 16.1 H (13.2-15.2) % Plt Count 476 H (140-440) K/mm3 Lymph % (Auto) 7.9 L (13.4-35.0) % [place] % (Auto) 6.9 (0.0-7.3) % Eos % (Auto) 0.5 (0.0-4.3) % Baso % (Auto) 0.6 (0.0-1.8) % Lymph # (Auto) 1.2 (1.2-5.4) K/mm3 [place] # (Auto) 1.1 H (0.0-0.8) K/mm3 Eos # (Auto) 0.1 (0.0-0.4) K/mm3 Baso # (Auto) 0.1 (0.0-0.1) K/mm3 Seg Neutrophils % 84.1 H (40.0-70.0) % Seg Neutrophils # 13.3 H (1.8-7.7) K/mm3 Sodium 140 (137-145) mmol/L Potassium 4.0 (3.6-5.0) mmol/L Chloride 102.0 (98-107) mmol/L Carbon Dioxide 26 (22-30) mmol/L Anion Gap 16 mmol/L BUN 23 H (9-20) mg/dL Creatinine 1.7 H (0.8-1.3) mg/dL Estimated GFR 41 ml/min BUN/Creatinine Ratio 14 % Glucose 126 H (75-100) mg/dL Calcium 8.8 (8.4-10.2) mg/dL Total Bilirubin 0.40 (0.1-1.2) mg/dL Direct Bilirubin < 0.2 (0-0.2) mg/dL Indirect Bilirubin 0.2 mg/dL AST 13 (5-40) units/L ALT 15 (7-56) units/L Alkaline Phosphatase 71 (35-129) units/L Troponin T 0.047 H (0.00-0.029) ng/mL Total Protein 7.5 (6.3-8.2) g/dL Albumin 3.2 L (3.9-5) g/dL Albumin/Globulin Ratio 0.7 % Urine Color (Yellow) Urine Turbidity (Clear) Urine pH (5.0-7.0) Ur Specific [place] (1.003-1.030) Urine Protein (Negative) mg/dL Urine Glucose (UA) (Negative) mg/dL Urine Ketones (Negative) mg/dL Urine Blood (Negative) Urine Nitrite (Negative) Urine Bilirubin (Negative) Urine Urobilinogen (<2.0) mg/dL Ur Leukocyte Esterase (Negative) Urine WBC (Auto) (0.0-6.0) /HPF Urine RBC (Auto) (0.0-6.0) /HPF Urine Mucus /HPF 05/07/21 Range/Units Unknown WBC (4.5-11.0) K/mm3 RBC (3.65-5.03) M/mm3 Hgb (11.8-15.2) gm/dl Hct (35.5-45.6) % MCV (84-94) fl MCH (28-32) pg MCHC (32-34) % RDW (13.2-15.2) % Plt Count (140-440) K/mm3 Lymph % (Auto) (13.4-35.0) % [place] % (Auto) (0.0-7.3) % Eos % (Auto) (0.0-4.3) % Baso % (Auto) (0.0-1.8) % Lymph # (Auto) (1.2-5.4) K/mm3 [place] # (Auto) (0.0-0.8) K/mm3 Eos # (Auto) (0.0-0.4) K/mm3 Baso # (Auto) (0.0-0.1) K/mm3 Seg Neutrophils % (40.0-70.0) % Seg Neutrophils # (1.8-7.7) K/mm3 Sodium (137-145) mmol/L Potassium (3.6-5.0) mmol/L Chloride (98-107) mmol/L Carbon Dioxide (22-30) mmol/L Anion Gap mmol/L BUN (9-20) mg/dL Creatinine (0.8-1.3) mg/dL Estimated GFR ml/min BUN/Creatinine Ratio % Glucose (75-100) mg/dL Calcium (8.4-10.2) mg/dL Total Bilirubin (0.1-1.2) mg/dL Direct Bilirubin (0-0.2) mg/dL Indirect Bilirubin mg/dL AST (5-40) units/L ALT (7-56) units/L Alkaline Phosphatase (35-129) units/L Troponin T (0.00-0.029) ng/mL Total Protein (6.3-8.2) g/dL Albumin (3.9-5) g/dL Albumin/Globulin Ratio % Urine Color Yellow (Yellow) Urine Turbidity Cloudy (Clear) Urine pH 8.0 H (5.0-7.0) Ur Specific [place] 1.003 (1.003-1.030) Urine Protein 30 mg/dl (Negative) mg/dL Urine Glucose (UA) Neg (Negative) mg/dL Urine Ketones Neg (Negative) mg/dL Urine Blood Mod (Negative) Urine Nitrite Neg (Negative) Urine Bilirubin Neg (Negative) Urine Urobilinogen < 2.0 (<2.0) mg/dL Ur Leukocyte Esterase Lg (Negative) Urine WBC (Auto) > 182.0 H (0.0-6.0) /HPF Urine RBC (Auto) 55.0 (0.0-6.0) /HPF Urine Mucus Few /HPF - EKG Data -: EKG Interpreted by Pa EKG shows normal: sinus rhythm Rate: normal - EKG Data When compared to previous EKG there are: no significant change 05/07/21 14:48 EKG today as compared to prior EKG from 01/02/2021 This is a sinus rhythm, with a rate of 84 bpm. There is a left axis deviation, and incomplete right bundle branch block, QTC is prolonged, 423 ms, and normal P wave axis. This is an abnormal EKG. This is not a STEMI. This EKG is unchanged from prior EKG from 01/02/2021 - Radiology Data Radiology results: pending, report reviewed, image reviewed ED Disposition Clinical Impression: Pyuria, Hydronephrosis, Renal colic, SIRS (systemic inflammatory response syndrome) Disposition: DC/TX-70 ANOTHER TYPE HLTHCARE Condition: Stable Referrals: PRIMARY CAREMD [Primary Care Provider] - 3-5 Days <CANDELARIA ZARAGOZA - Last Filed: 05/07/21 17:19> ED General Adult HPI - General Source: patient Mode of arrival: Ambulatory Limitations: No Limitations - History of Present Illness Initial comments: 60-year-old male patient presents with complaints of sudden onset of left flank pain starting this morning. Patient has a history of CAD, CABG, and recurrent nephrolithiasis. He was seen here on 04/15/2021 for a right sided kidney stone with UTI and was discharged home on Keflex. Today he admits to urinary frequency and dysuria without hematuria. Patient reports he is following with Dr. Justin Taylor, [place] [facility], and reports he is scheduled to have a surgery for right kidney stone removal on 05/24/2021. No chest pain or shortness of breath per patient. He rates his current pain as a 10/10 in severity. Severity scale (0 -10): 10 ED Review of Systems ROS: Stated complaint: KIDNEY STONE Other details as noted in HPI Constitutional: denies: chills, diaphoresis, fever, malaise, weakness Respiratory: denies: cough, shortness of breath Cardiovascular: denies: chest pain Gastrointestinal: nausea. denies: vomiting, diarrhea, constipation Genitourinary: dysuria, frequency. denies: hematuria Skin: denies: change in color Neurological: denies: headache ED Past Medical Hx - Past Medical History Hx Hypertension: Yes Hx Heart Attack/AMI: Yes Hx Congestive Heart Failure: Yes Hx Diabetes: No Hx GERD: Yes Hx Arthritis: Yes Hx Kidney Stones: Yes Hx Psychiatric Treatment: Yes (meth abuse) Hx Asthma: Yes (no inhaler use. no recent attacks) Hx COPD: Yes - Surgical History Hx Coronary Stent: Yes (1) Hx Open Heart Surgery: Yes (2001- vessel) Additional Surgical History: back surgery - Social History Smoking Status: Current Every Day Smoker Substance Use Type: None ED Physical Exam - General Limitations: No Limitations General appearance: alert, other (Patient appears uncomfortable) - Head Head exam: Present: atraumatic, normocephalic - Neck Neck exam: Present: normal inspection - Respiratory Respiratory exam: Present: normal lung sounds bilaterally. Absent: respiratory distress - Cardiovascular Cardiovascular Exam: Present: regular rate, normal rhythm - GI/Abdominal GI/Abdominal exam: Present: soft, normal bowel sounds. Absent: distended, tenderness, guarding, rebound, rigid - Back Exam Back exam: Present: full ROM, CVA tenderness (R), CVA tenderness (L) - Neurological Exam Neurological exam: Present: alert, oriented X3, normal gait - Psychiatric Psychiatric exam: Present: normal affect, normal mood - Skin Skin exam: Present: warm, dry, intact, normal color. Absent: rash ED Course Vital Signs 05/07/21 05/07/21 05/07/21 10:03 13:29 17:15 Temperature 98.2 F Pulse Rate 80 81 Respiratory 28 H 20 Rate Blood Pressure 159/72 Blood Pressure 163/84 151/99 [Left] O2 Sat by Pulse 95 99 Oximetry ED Medical Decision Making - Lab Data Result diagrams: 05/07/21 12:46 05/07/21 12:46 - Radiology Data Radiology results: report reviewed ULTRASOUND RENAL INDICATION / CLINICAL INFORMATION: bilateral flank pain. COMPARISON: CT dated 04/15/2021 FINDINGS: RIGHT KIDNEY: Length = 14.9 cm. - Echogenicity: Normal. - Cortical Thickness: Normal. - Hydronephrosis: Moderate - Cyst / Mass: There hypoattenuating lesions measuring up to 1.0 and 1.2 cm, likely representing a simple renal cysts. - Stones: There is a 6 mm echogenic focus within the inferior kidney, as well as a 1.1 cm echogenic focus within the inferior kidney, both which likely represent nephrolithiasis. LEFT KIDNEY: Length = 13.4 cm. - Echogenicity: Normal. - Cortical Thickness: Normal. - Hydronephrosis: Moderate - Cyst / Mass: There is a hypoattenuating lesion measuring about 1.5 cm within the midportion of the kidney, likely representing a simple renal cyst. - Stones: There is a 1.1 cm echogenic focus within the inferior aspect of the kidney, likely representing nephrolithiasis URINARY BLADDER: Not well visualized secondary to patient voiding FREE FLUID: None. ADDITIONAL FINDINGS: None. IMPRESSION: 1. Moderate bilateral hydronephrosis. 2. Bilateral renal cysts. 3. Bilateral nephrolithiasis. CT ABDOMEN AND PELVIS WITHOUT CONTRAST INDICATION / CLINICAL INFORMATION: infected stone, left side pain. TECHNIQUE: Axial CT images were obtained through the abdomen and pelvis without IV contrast. All CT scans at this location are performed using CT dose reduction for ALARA by means of automated exposure control. COMPARISON: 04/15/2021. FINDINGS: LOWER CHEST: Small right effusion. Mild vascular congestion/edema. LIVER: No significant abnormality. GALLBLADDER: No significant abnormality. BILE DUCTS: No significant abnormality. PANCREAS: No significant abnormality. SPLEEN: No significant abnormality. ADRENALS: No significant abnormality. RIGHT KIDNEY / URETER: Nonobstructing calyceal stones with the largest at the lower pole measuring 8 mm. 1.4 cm stone remains at the right ureteropelvic junction with moderate obstruction. LEFT KIDNEY / URETER: Nonobstructing cluster of stones at the lower pole measures 6.5 mm. Moderate distention of the left renal collecting system and ureter to the level of a 6 mm stone just below the ureteropelvic pelvic junction. STOMACH / SMALL BOWEL: No significant abnormality. COLON: Noninflamed diverticulosis greatest at the descending and sigmoid colon's. APPENDIX: No significant abnormality. PERITONEUM: No free fluid. No free air. No fluid collection. LYMPH NODES: No significant adenopathy. VASCULAR STRUCTURES: Dense atherosclerotic vascular calcification with aortoiliac disease which is likely clinically significant. URINARY BLADDER: No significant abnormality. REPRODUCTIVE ORGANS: Moderate prostate enlargement. Mild calcification. ADDITIONAL FINDINGS: None. SKELETAL SYSTEM: No significant abnormality. IMPRESSION: 1. Persistent 1.4 cm nonobstructing stone at the right ureteropelvic junction. 2. New 6 mm obstructing stone just distal to the left ureteropelvic junction. 3. Persistent nonobstructing calyceal stones. 4. Noninflamed colonic diverticulosis. - Medical Decision Making 60-year-old male patient presents with complaints of sudden onset of left flank pain starting this morning. Patient has a history of CAD, CABG, and recurrent nephrolithiasis. He was seen here on 04/15/2021 for a right sided kidney stone with UTI and was discharged home on Keflex. Today he admits to urinary frequency and dysuria without hematuria. Patient reports he is following with Dr. Justin Taylor, [place] [facility], and reports he is scheduled to have a surgery for right kidney stone removal on 05/24/2021. No chest pain or shortness of breath per patient. He rates his current pain as a 10/10 in severity. New 6 mm left ureteropelvic junction obstructing stone noted on CT today that was not present 04/15/[address] scan. Vitals are normal. White count noted to be 15.9. Patient has a mild ABA noted with a creatinine of 1.7 and a GFR 41 which were both within normal limits on 04/15/2021. Lactic acid is normal. Patient given 1 L of saline and 1 g of IV Rocephin. Discussed patient in detail with Dr. Vaz-recommends transfer of care to urology for continuity of care and treatment of infected kidney stone. Discussed patient with Sonia Ruiz, STEPHAN from Dr. [facility]it[facility] urology-no beds available for transfer. Patient currently [id number]: Discussed patient with Dr. Ziegler, [place] [facility], who will accept patient at [facility]. Patient is stable at this time. Critical Care Time: Yes (Consulted with multiple hospitals for transfer) Critical care time in (mins) excluding proc time.: 60 Critical care attestation.: If time is entered above; I have spent that time in minutes in the direct care of this critically ill patient, excluding procedure time. ED Disposition Is pt being admited?: No
[2021-05-07] MEDS ORDERED: HYDROmorphone 1 MG/1 ML INJ IV ONE ×3 (13:18→22:52)
--- NOTE | 2021-05-07 13:29 | Event Note ---
Date of service: 05/07/21 Face to Face: 60-year-old gentleman, known history of kidney stones, presenting today with bilateral flank pain. Renal ultrasound suggests hydronephrosis. Patient denies dysuria and testicular pain. He is having persistent renal colic pain. Noncontrast CT scan of the abdomen pelvis was ordered. Pain medication, antiemetics are ordered. Patient meeting systemic inflammatory response syndrome criteria, by merit of white blood cell count of 15.9, and tachypnea at a rate of 28/min. Fluids, and antibiotics ordered. Patient's labs demonstrate renal insufficiency, and pyuria. CT scan abdomen pelvis reviewed and appreciated. Elevated troponin not ordered by myself, the patient denies chest pain to myself, this is most likely a type II troponin leak. 05/07/2021; 03: 57 PM. [facility], not able to accommodate transfer. The physician's assistant finance manager had multiple discussions with the [place] urology nurse practitioner. She will reach out to [place] to coordinate transfer. Please note that this hospital does not have urology available for ER consultation. We will also make oncoming ER physician aware of this patient's plan for transfer and care. Physician assistant finance manager to contact patient's private urologist at [facility]. Ideally would like to transfer this patient to his private urologist at the aforementioned receiving facility, for continuity of care. Currently, do not have urology available for ER consultation at this facility. Physical examination is remarkable for a 60-year-old gentleman, who appears to be moderately overweight, with bilateral CVA tenderness, Who appears to be uncomfortable. No facial droop. Tongue midline. Extraocular movements intact bilaterally. Facial sensation intact to light touch in V1, V2, V3 distribution bilaterally. 5 and a 5 strength in 4 extremities. Sensation intact to light touch in 4 extremities. ULTRASOUND RENAL INDICATION / CLINICAL INFORMATION: bilateral flank pain. COMPARISON: CT dated 04/15/2021 FINDINGS: RIGHT KIDNEY: Length = 14.9 cm. - Echogenicity: Normal. - Cortical Thickness: Normal. - Hydronephrosis: Moderate - Cyst / Mass: There hypoattenuating lesions measuring up to 1.0 and 1.2 cm, likely representing a simple renal cysts. - Stones: There is a 6 mm echogenic focus within the inferior kidney, as well as a 1.1 cm echogenic focus within the inferior kidney, both which likely represent nephrolithiasis. LEFT KIDNEY: Length = 13.4 cm. - Echogenicity: Normal. - Cortical Thickness: Normal. - Hydronephrosis: Moderate - Cyst / Mass: There is a hypoattenuating lesion measuring about 1.5 cm within the midportion of the kidney, likely representing a simple renal cyst. - Stones: There is a 1.1 cm echogenic focus within the inferior aspect of the kidney, likely representing nephrolithiasis URINARY BLADDER: Not well visualized secondary to patient voiding FREE FLUID: None. ADDITIONAL FINDINGS: None. IMPRESSION: 1. Moderate bilateral hydronephrosis. 2. Bilateral renal cysts. 3. Bilateral nephrolithiasis. Signer Name: Chivokimi Wynne DO Signed: 05/07/2021 10:57 AM Workstation Name: [id number] Vital Signs 05/07/21 05/07/21 10:03 13:29 Temperature 98.2 F Pulse Rate 80 Respiratory 28 H Rate Blood Pressure 159/72 Blood Pressure 163/84 [Left] O2 Sat by Pulse 95 Oximetry Lab Results 05/07/21 05/07/21 Range/Units 12:46 Unknown WBC 15.9 H (4.5-11.0) K/mm3 RBC 4.23 (3.65-5.03) M/mm3 Hgb 11.4 L (11.8-15.2) gm/dl Hct 34.7 L (35.5-45.6) % MCV 82 L (84-94) fl MCH 27 L (28-32) pg MCHC 33 (32-34) % RDW 16.1 H (13.2-15.2) % Plt Count 476 H (140-440) K/mm3 Lymph % (Auto) 7.9 L (13.4-35.0) % [place] % (Auto) 6.9 (0.0-7.3) % Eos % (Auto) 0.5 (0.0-4.3) % Baso % (Auto) 0.6 (0.0-1.8) % Lymph # (Auto) 1.2 (1.2-5.4) K/mm3 [place] # (Auto) 1.1 H (0.0-0.8) K/mm3 Eos # (Auto) 0.1 (0.0-0.4) K/mm3 Baso # (Auto) 0.1 (0.0-0.1) K/mm3 Seg Neutrophils % 84.1 H (40.0-70.0) % Seg Neutrophils # 13.3 H (1.8-7.7) K/mm3 Urine Color Yellow (Yellow) Urine Turbidity Cloudy (Clear) Urine pH 8.0 H (5.0-7.0) Ur Specific Palmer 1.003 (1.003-1.030) Urine Protein 30 mg/dl (Negative) mg/dL Urine Glucose (UA) Neg (Negative) mg/dL Urine Ketones Neg (Negative) mg/dL Urine Blood Mod (Negative) Urine Nitrite Neg (Negative) Urine Bilirubin Neg (Negative) Urine Urobilinogen < 2.0 (<2.0) mg/dL Ur Leukocyte Esterase Lg (Negative) Urine WBC (Auto) > 182.0 H (0.0-6.0) /HPF Urine RBC (Auto) 55.0 (0.0-6.0) /HPF Urine Mucus Few /HPF [facility] [address] [id number] Cat Scan Report Signed Patient: PO WILL MR#: [id number] : 1960 Acct:[id number] Age/Sex: 60 / M ADM Date: 05/07/21 Loc: ED Attending Dr: Ordering Physician: INOCENCIO CAGLE MD Date of Service: 05/07/21 Procedure(s): CT abdomen pelvis wo con Accession Number(s): [id number] cc: INOCENCIO CAGLE MD CT ABDOMEN AND PELVIS WITHOUT CONTRAST INDICATION / CLINICAL INFORMATION: infected stone, left side pain. TECHNIQUE: Axial CT images were obtained through the abdomen and pelvis without IV contrast. All CT scans at this location are performed using CT dose reduction for ALARA by means of automated exposure control. COMPARISON: 04/15/2021. FINDINGS: LOWER CHEST: Small right effusion. Mild vascular congestion/edema. LIVER: No significant abnormality. GALLBLADDER: No significant abnormality. BILE DUCTS: No significant abnormality. PANCREAS: No significant abnormality. SPLEEN: No significant abnormality. ADRENALS: No significant abnormality. RIGHT KIDNEY / URETER: Nonobstructing calyceal stones with the largest at the lower pole measuring 8 mm. 1.4 cm stone remains at the right ureteropelvic junction with moderate obstruction. LEFT KIDNEY / URETER: Nonobstructing cluster of stones at the lower pole measures 6.5 mm. Moderate distention of the left renal collecting system and ureter to the level of a 6 mm stone just below the ureteropelvic pelvic junction. STOMACH / SMALL BOWEL: No significant abnormality. COLON: Noninflamed diverticulosis greatest at the descending and sigmoid colon's. APPENDIX: No significant abnormality. PERITONEUM: No free fluid. No free air. No fluid collection. LYMPH NODES: No significant adenopathy. VASCULAR STRUCTURES: Dense atherosclerotic vascular calcification with aortoiliac disease which is likely clinically significant. URINARY BLADDER: No significant abnormality. REPRODUCTIVE ORGANS: Moderate prostate enlargement. Mild calcification. ADDITIONAL FINDINGS: None. SKELETAL SYSTEM: No significant abnormality. IMPRESSION: 1. Persistent 1.4 cm nonobstructing stone at the right ureteropelvic junction. 2. New 6 mm obstructing stone just distal to the left ureteropelvic junction. 3. Persistent nonobstructing calyceal stones. 4. Noninflamed colonic diverticulosis. Signer Name: Kali Reyes MD Signed: 05/07/2021 2:10 PM Workstation Name: [id number] Transcribed By: ES Dictated By: Kali Reyes MD Electronically Authenticated By: Kali Reyes MD Signed Date/Time: 05/07/21 1410 DD/ 1403 Vital Signs 05/07/21 05/07/21 10:03 13:29 Temperature 98.2 F Pulse Rate 80 Respiratory 28 H Rate Blood Pressure 159/72 Blood Pressure 163/84 [Left] O2 Sat by Pulse 95 Oximetry Lab Results 05/07/21 05/07/21 05/07/21 Range/Units 12:46 12:46 12:46 WBC 15.9 H (4.5-11.0) K/mm3 RBC 4.23 (3.65-5.03) M/mm3 Hgb 11.4 L (11.8-15.2) gm/dl Hct 34.7 L (35.5-45.6) % MCV 82 L (84-94) fl MCH 27 L (28-32) pg MCHC 33 (32-34) % RDW 16.1 H (13.2-15.2) % Plt Count 476 H (140-440) K/mm3 Lymph % (Auto) 7.9 L (13.4-35.0) % [place] % (Auto) 6.9 (0.0-7.3) % Eos % (Auto) 0.5 (0.0-4.3) % Baso % (Auto) 0.6 (0.0-1.8) % Lymph # (Auto) 1.2 (1.2-5.4) K/mm3 [place] # (Auto) 1.1 H (0.0-0.8) K/mm3 Eos # (Auto) 0.1 (0.0-0.4) K/mm3 Baso # (Auto) 0.1 (0.0-0.1) K/mm3 Seg Neutrophils % 84.1 H (40.0-70.0) % Seg Neutrophils # 13.3 H (1.8-7.7) K/mm3 Sodium 140 (137-145) mmol/L Potassium 4.0 (3.6-5.0) mmol/L Chloride 102.0 (98-107) mmol/L Carbon Dioxide 26 (22-30) mmol/L Anion Gap 16 mmol/L BUN 23 H (9-20) mg/dL Creatinine 1.7 H (0.8-1.3) mg/dL Estimated GFR 41 ml/min BUN/Creatinine Ratio 14 % Glucose 126 H (75-100) mg/dL Calcium 8.8 (8.4-10.2) mg/dL Total Bilirubin 0.40 (0.1-1.2) mg/dL Direct Bilirubin < 0.2 (0-0.2) mg/dL Indirect Bilirubin 0.2 mg/dL AST 13 (5-40) units/L ALT 15 (7-56) units/L Alkaline Phosphatase 71 (35-129) units/L Troponin T 0.047 H (0.00-0.029) ng/mL Total Protein 7.5 (6.3-8.2) g/dL Albumin 3.2 L (3.9-5) g/dL Albumin/Globulin Ratio 0.7 % Urine Color (Yellow) Urine Turbidity (Clear) Urine pH (5.0-7.0) Ur Specific Palmer (1.003-1.030) Urine Protein (Negative) mg/dL Urine Glucose (UA) (Negative) mg/dL Urine Ketones (Negative) mg/dL Urine Blood (Negative) Urine Nitrite (Negative) Urine Bilirubin (Negative) Urine Urobilinogen (<2.0) mg/dL Ur Leukocyte Esterase (Negative) Urine WBC (Auto) (0.0-6.0) /HPF Urine RBC (Auto) (0.0-6.0) /HPF Urine Mucus /HPF 05/07/21 Range/Units Unknown WBC (4.5-11.0) K/mm3 RBC (3.65-5.03) M/mm3 Hgb (11.8-15.2) gm/dl Hct (35.5-45.6) % MCV (84-94) fl MCH (28-32) pg MCHC (32-34) % RDW (13.2-15.2) % Plt Count (140-440) K/mm3 Lymph % (Auto) (13.4-35.0) % [place] % (Auto) (0.0-7.3) % Eos % (Auto) (0.0-4.3) % Baso % (Auto) (0.0-1.8) % Lymph # (Auto) (1.2-5.4) K/mm3 [place] # (Auto) (0.0-0.8) K/mm3 Eos # (Auto) (0.0-0.4) K/mm3 Baso # (Auto) (0.0-0.1) K/mm3 Seg Neutrophils % (40.0-70.0) % Seg Neutrophils # (1.8-7.7) K/mm3 Sodium (137-145) mmol/L Potassium (3.6-5.0) mmol/L Chloride (98-107) mmol/L Carbon Dioxide (22-30) mmol/L Anion Gap mmol/L BUN (9-20) mg/dL Creatinine (0.8-1.3) mg/dL Estimated GFR ml/min BUN/Creatinine Ratio % Glucose (75-100) mg/dL Calcium (8.4-10.2) mg/dL Total Bilirubin (0.1-1.2) mg/dL Direct Bilirubin (0-0.2) mg/dL Indirect Bilirubin mg/dL AST (5-40) units/L ALT (7-56) units/L Alkaline Phosphatase (35-129) units/L Troponin T (0.00-0.029) ng/mL Total Protein (6.3-8.2) g/dL Albumin (3.9-5) g/dL Albumin/Globulin Ratio % Urine Color Yellow (Yellow) Urine Turbidity Cloudy (Clear) Urine pH 8.0 H (5.0-7.0) Ur Specific Palmer 1.003 (1.003-1.030) Urine Protein 30 mg/dl (Negative) mg/dL Urine Glucose (UA) Neg (Negative) mg/dL Urine Ketones Neg (Negative) mg/dL Urine Blood Mod (Negative) Urine Nitrite Neg (Negative) Urine Bilirubin Neg (Negative) Urine Urobilinogen < 2.0 (<2.0) mg/dL Ur Leukocyte Esterase Lg (Negative) Urine WBC (Auto) > 182.0 H (0.0-6.0) /HPF Urine RBC (Auto) 55.0 (0.0-6.0) /HPF Urine Mucus Few /HPF
[2021-05-07 13:51] LABS: Basophils # (Auto) 0.1 K/mm3 (0.0-0.1); Basophils % (Auto) 0.6 % (0.0-1.8); Eosinophils # (Auto) 0.1 K/mm3 (0.0-0.4); Eosinophils % (Auto) 0.5 % (0.0-4.3); Hematocrit 34.7 % (35.5-45.6); Hemoglobin 11.4 gm/dl (11.8-15.2); Lymphocytes # (Auto) 1.2 K/mm3 (1.2-5.4); Lymphocytes % (Auto) 7.9 % (13.4-35.0); Mean Corpuscular HGB Conc 33 % (32-34); Mean Corpuscular Volume 82 fl (84-94); Monocytes # (Auto) 1.1 K/mm3 (0.0-0.8); Monocytes % (Auto) 6.9 % (0.0-7.3); Platelet Count 476 K/mm3 (140-440); Red Blood Count 4.23 M/mm3 (3.65-5.03); Red Cell Distribution Width 16.1 % (13.2-15.2)
[2021-05-07 14:11] LABS: Alanine Aminotransferase 15 units/L (7-56); Albumin 3.2 g/dL (3.9-5); BUN/Creatinine Ratio 14; Blood Urea Nitrogen 23 mg/dL (9-20); Calcium 8.8 mg/dL (8.4-10.2); Hemolysis Index 1
[2021-05-07 14:15] LABS: Bilirubin,Direct < 0.2 mg/dL (0-0.2)
--- NOTE | 2021-05-07 14:15 | Cat Scan Report ---
CT ABDOMEN AND PELVIS WITHOUT CONTRAST INDICATION / CLINICAL INFORMATION: infected stone, left side pain. TECHNIQUE: Axial CT images were obtained through the abdomen and pelvis without IV contrast. All CT scans at this location are performed using CT dose reduction for ALARA by means of automated exposure control. COMPARISON: 04/15/2021. FINDINGS: LOWER CHEST: Small right effusion. Mild vascular congestion/edema. LIVER: No significant abnormality. GALLBLADDER: No significant abnormality. BILE DUCTS: No significant abnormality. PANCREAS: No significant abnormality. SPLEEN: No significant abnormality. ADRENALS: No significant abnormality. RIGHT KIDNEY / URETER: Nonobstructing calyceal stones with the largest at the lower pole measuring 8 mm. 1.4 cm stone remains at the right ureteropelvic junction with moderate obstruction. LEFT KIDNEY / URETER: Nonobstructing cluster of stones at the lower pole measures 6.5 mm. Moderate di stention of the left renal collecting system and ureter to the level of a 6 mm stone just below the u reteropelvic pelvic junction. STOMACH / SMALL BOWEL: No significant abnormality. COLON: Noninflamed diverticulosis greatest at the descending and sigmoid colon's. APPENDIX: No significant abnormality. PERITONEUM: No free fluid. No free air. No fluid collection. LYMPH NODES: No significant adenopathy. VASCULAR STRUCTURES: Dense atherosclerotic vascular calcification with aortoiliac disease which is li lila clinically significant. URINARY BLADDER: No significant abnormality. REPRODUCTIVE ORGANS: Moderate prostate enlargement. Mild calcification. ADDITIONAL FINDINGS: None. SKELETAL SYSTEM: No significant abnormality. IMPRESSION: 1. Persistent 1.4 cm nonobstructing stone at the right ureteropelvic junction. 2. New 6 mm obstructing stone just distal to the left ureteropelvic junction. 3. Persistent nonobstructing calyceal stones. 4. Noninflamed colonic diverticulosis. Signer Name: Kali Reyes MD Signed: 05/07/2021 2:10 PM Workstation Name: [employer] [employer]
[2021-05-07] MEDS ORDERED: SODIUM CHLORIDE 0.9% 1000 ML 1,000 ML IV ONE (14:28)
[2021-05-07 15:02] LABS: Chol/HDL Ratio 3.87 %
[2021-05-07] MEDS ORDERED: fentaNYL 100 MCG/2 ML INJ IV ONE (18:43)
[2021-05-07 22:42] VITALS: BP 159/73
[2021-05-07] MEDS ORDERED: ACETAMINOPHEN 325 MG TAB PO ONE (22:44)
[2021-05-07] MEDS ORDERED: ACETAMINOPHEN 325 MG TAB ONE (22:46)
[2021-05-07] MEDS ORDERED: HYDROmorphone 1 MG/1 ML INJ ONE (22:46)
[2021-05-07] MEDS ORDERED: ONDANSETRON 4 MG/2 ML INJ ONE (22:46)
--- NOTE | 2021-05-08 09:48 | Electrocardiograph Report ---
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
== END 2021-05-07 23:30 | disposition other institution (70) ==
LOC: ED 09:57
DX: N13.30 Unspecified hydronephrosis (principal); R65.11 Systemic inflammatory response syndrome (SIRS) of non-infectious origin with acute organ dysfunction; N23 Unspecified renal colic; R82.81 Pyuria; I11.0 Hypertensive heart disease with heart failure; I50.9 Heart failure, unspecified; I25.2 Old myocardial infarction; K21.9 Gastro-esophageal reflux disease without esophagitis; M19.91 Primary osteoarthritis, unspecified site; J44.9 Chronic obstructive pulmonary disease, unspecified; F17.200 Nicotine dependence, unspecified, uncomplicated; Z98.890 Other specified postprocedural states; Z79.899 Other long term (current) drug therapy; Z88.8 Allergy status to other drugs, medicaments and biological substances
CPT/HCPCS: 36415; 74176; 76770; 80048; 80061; 80076; 81001; 82140; 84484; 85025; 87040; 87086; 93005; 96365; 96366; 96375; 96376; 99285; J0696; J1170; J2270; J2405; J3010; J7030